=== PATIENT | female | born 1935 | race Caucasian/White ===

== ENCOUNTER 2019-09-19 19:31 | Inpatient (IN) | payer OTHER ==
[2019-09-19] MEDS ORDERED: NA CHLORIDE 0.9% 500 ML ONE (20:30)
[2019-09-19] MEDS ORDERED: ONDANSETRON 4 MG/2 ML VIAL ONE (20:30)
[2019-09-19] MEDS ORDERED: MECLIZINE HCL 12.5 MG TAB ONE (20:30)
[2019-09-19 20:33] LABS: Absolute Lymphocytes (CBC) 1.3 K/uL (0.7-4.9); Basophils % 0.4 % (0-1.3); Hematocrit 38.9 % (36.0-45.0); Lymphocytes % 15.1 % (15.3-44.8); MPV 9.9 fL (7.6-11.3); RBC Red Blood Cell Count 4.55 M/uL (3.86-4.86)
[2019-09-19 20:52] LABS: Albumin 3.9 g/dL (3.4-5.0); Bilirubin Direct 0.1 mg/dL (0-0.2); Bilirubin Total 0.4 mg/dL (0.2-1.0); Potassium 3.8 mmol/L (3.5-5.1); Protein, Total 8.3 g/dL (6.4-8.2)
[2019-09-19 21:12] LABS: Urine Blood TRACE (NEG); Urine Glucose NEGATIVE (NEG); Urine Protein NEGATIVE (NEG); Urine Specific Gravity 1.015 (1.005-1.030)
[2019-09-19 21:30] LABS: Urine Bacteria 20-50 /HPF (<20); Urine RBC <5 /HPF (NONE SEEN)
[2019-09-19 21:31] LABS: Urine Culture Reflex Order NOT NEEDED
[2019-09-19] MEDS ORDERED: METRONIDAZOLE 500mg IVPB 500 MG/100 ML BAG IV ONE (22:44)
[2019-09-19] MEDS ORDERED: CIPROFLOXACIN 400mg IV 400 MG/200 ML BAG IV ONE (22:44)
--- NOTE | 2019-09-19 23:01 | ER ---
Nurse's Notes [facility] Name: Deirdre Castillo Age: 83 yrs Sex: Female : 1935 Arrival Date: 09/19/2019 Time: 19:33 Bed 7 Private MD: Diagnosis: Dehydration;Diverticulitis of large intestine without perforation or abscess without bleeding;Urinary tract infection, site not specified Presentation: 09/19 19:53 Presenting complaint: Patient states: Vomiting, diarrhea that began this afternoon; lp1 States had a fall earlier today, pain to left shoulder; continued nausea. Onset of symptoms was September 19, 2019. Risk Assessment: Do you want to hurt yourself or someone else? Patient reports no desire to harm self or others. Care prior to arrival: None. 19:53 Method Of Arrival: Wheelchair lp1 19:56 Transition of care: patient was not received from another setting of care. Initial lp1 Sepsis Screen: Does the patient meet any 2 criteria? No. Patient's initial sepsis screen is negative. Does the patient have a suspected source of infection? No. Patient's initial sepsis screen is negative. 19:56 Acuity: BRETT 3 lp1 Historical: - Allergies: 19:59 PENICILLINS; lp1 19:59 Macrolide Antibiotics; lp1 19:59 lansaprazole; lp1 - Home Meds: 19:59 aspirin 81 mg Oral chew once daily [Active]; Hydrochlorothiazide Oral [Active]; Fosamax lp1 Oral once wkly [Active]; alendronate 70 mg/75 mL Oral soln 75 mL once wkly [Active]; 20:45 metoprolol tartrate 25 mg Oral tab 0.5 tab 2 times per day [Active]; sertraline 100 mg lp1 Oral tab 1 tab once daily [Active]; levothyroxine 50 mcg tab 1 tab once daily [Active]; amlodipine 5 mg tab 1 tab once daily [Active]; magnesium oxide 250 mg Oral tab twice a day [Active]; telmisartan 80 mg oral tab 1 tab once daily [Active]; mirtazapine 7.5 mg Oral tab once daily [Active]; famotidine 20 mg Oral tab [Active]; melatonin 3 mg Oral tab nightly [Active]; Nasacort Nasal as needed [Active]; - PMHx: 19:59 Depression; Hypertension; Hypothyroidism; Migraines; Osteoporosis; Vertigo; lp1 - PSHx: 19:59 Appendectomy; Hysterectomy; lp1 - Immunization history:: Adult Immunizations up to date. - Social history:: Smoking status: Patient/guardian denies using tobacco. - Ebola Screening: : No symptoms or risks identified at this time. - Family history:: not pertinent. - Hospitalizations: : No recent hospitalization is reported. Screenin:00 Abuse screen: Denies threats or abuse. Denies injuries from another. Nutritional lp1 screening: No deficits noted. Tuberculosis screening: No symptoms or risk factors identified. 20:23 Fall Risk Fall in past 12 months (25 points). IV access (20 points). Total Doll Fall jb4 Scale indicates High Risk Score (45 or more points). Fall prevention measures have been instituted. Side Rails Up X 2 Placed Close to Nursing Station Frequent Obs/Assessments Occuring Family Present and informed to notify staff if the need to leave the bedside As available patient and family educated on Fall Prevention Program and Strategies. Assessment: 20:23 General: Appears in no apparent distress. comfortable, Behavior is calm, cooperative, jb4 appropriate for age. Pain: Denies pain. Neuro: Level of Consciousness is awake, alert, obeys commands, Oriented to person, place, time, situation, Moves all extremities. Full function Speech is normal, Facial droop on right, Pupils are PERRLA. Cardiovascular: Patient's skin is warm and dry. Respiratory: Airway is patent Respiratory effort is even, unlabored, Respiratory pattern is regular, symmetrical. GI: Abdomen is round non-distended, Bowel sounds present X 4 quads. Abd is soft and non tender X 4 quads. : No deficits noted. No signs and/or symptoms were reported regarding the genitourinary system. EENT: No deficits noted. No signs and/or symptoms were reported regarding the EENT system. Derm: Skin is intact, Skin is pink, warm \T\ dry. Musculoskeletal: Circulation, motion, and sensation intact. Range of motion: intact in all extremities. 21:05 Reassessment: Patient appears in no apparent distress at this time. Patient and/or jb4 family updated on plan of care and expected duration. Pain level reassessed. Patient is alert, oriented x 3, equal unlabored respirations, skin warm/dry/pink. PT to ct. 21:51 Reassessment: Patient appears in no apparent distress at this time. Patient and/or jb4 family updated on plan of care and expected duration. Pain level reassessed. Patient is alert, oriented x 3, equal unlabored respirations, skin warm/dry/pink. 23:00 Reassessment: Patient appears in no apparent distress at this time. Patient and/or jb4 family updated on plan of care and expected duration. Pain level reassessed. Patient is alert, oriented x 3, equal unlabored respirations, skin warm/dry/pink. 09/20 00:00 Reassessment: Patient appears in no apparent distress at this time. Patient and/or jb4 family updated on plan of care and expected duration. Pain level reassessed. Patient is alert, oriented x 3, equal unlabored respirations, skin warm/dry/pink. Patient states feeling better. 01:00 Reassessment: Patient appears in no apparent distress at this time. Patient and/or jb4 family updated on plan of care and expected duration. Pain level reassessed. Patient is alert, oriented x 3, equal unlabored respirations, skin warm/dry/pink. 01:30 Reassessment: Report called to ROSETTA [place]. jb4 Vital Signs: 09/19 19:59 BP 159 / 70; Pulse 56; Resp 18; Temp 97.8(O); Pulse Ox 100% on R/A; Weight 63.5 kg; lp1 Pain 0/10; 20:45 BP 154 / 59; Pulse 54; Resp 16; Pulse Ox 100% on R/A; jb4 21:45 BP 151 / 58; Pulse 56; Resp 16; Pulse Ox 100% on R/A; jb4 23:00 BP 158 / 73; Pulse 57; Resp 16; Pulse Ox 95% on R/A; jb4 09/20 00:00 BP 128 / 57; Pulse 54; Resp 16; Pulse Ox 99% on R/A; jb4 01:00 BP 122 / 56; Pulse 53; Resp 16; Temp 98.0(O); Pulse Ox 100% on R/A; jb4 ED Course: 09/19 19:33 Patient arrived in ED. cf2 19:56 Triage completed. lp1 19:56 Arm band placed on. lp1 20:03 Jarvis Dorsey MD is Attending Physician. rn 20:10 Nicolás Dempsey, RN is Primary Nurse. jb4 20:17 Radiology exam delayed due to lab results not completed at this time. (BUN/Creatinine). vm2 20:23 Patient has correct armband on for positive identification. Bed in low position. Call jb4 light in reach. Side rails up X 1. Pulse ox on. NIBP on. 20:23 Initial lab(s) drawn, by me, sent to lab. Inserted saline lock: 20 gauge in left jb4 antecubital area, using aseptic technique. Blood collected. 20:26 Basic Metabolic Panel Sent. jb4 20:26 CBC with Diff Sent. jb4 20:26 Creatinine for Radiology Sent. jb4 20:26 Hepatic Function Sent. jb4 20:26 Lipase Sent. jb4 21:06 CT completed. Patient tolerated procedure well. Patient moved back from CT. nj 21:12 CT Head Brain wo Cont In Process Unspecified. EDMS 21:23 CT Abd/Pelvis - IV Contrast Only In Process Unspecified. EDMS 21:33 XRAY Shoulder LEFT 2 view In Process Unspecified. EDMS 22:58 Jarvis Paulino MD is Hospitalizing Provider. rn 09/20 01:30 No provider procedures requiring assistance completed. Patient admitted, IV remains in jb4 place. Administered Medications: 09/19 20:23 Drug: Zofran 4 mg Route: IVP; Site: left antecubital; jb4 21:03 Follow up: Response: No adverse reaction; Nausea is decreased jb4 20:25 Drug: NS 0.9% 500 ml Route: IV; Rate: bolus; Site: left antecubital; jb4 21:00 Follow up: Response: No adverse reaction; IV Status: Completed infusion; IV Intake: jb4 500ml 21:20 Drug: Meclizine 25 mg Route: PO; jb4 22:00 Follow up: Response: No adverse reaction; Marked relief of symptoms jb4 22:54 Drug: Flagyl 500 mg Volume: 100 ml; Route: IVPB; Rate: 200 ml/hr; Infused Over: 30 jb4 mins; Site: left antecubital; 23:24 Follow up: Response: No adverse reaction; IV Status: Completed infusion; IV Intake: jb4 100ml 22:55 Drug: Cipro 400 mg Volume: 200 ml; Route: IVPB; Infused Over: 60 mins; Site: left jb4 antecubital; 23:55 Follow up: Response: No adverse reaction; IV Status: Completed infusion; IV Intake: jb4 200ml 23:40 Drug: Phenergan 12.5 mg Route: IVP; Site: left antecubital; jb4 09/20 00:10 Follow up: Response: No adverse reaction; Nausea is decreased jb4 Intake: 09/19 21:00 IV: 500ml; Total: 500ml. jb4 23:24 IV: 100ml; Total: 600ml. jb4 23:55 IV: 200ml; Total: 800ml. jb4 Outcome: 22:59 Decision to Hospitalize by Provider. rn 09/20 01:30 Admitted to Tele accompanied by tech, via wheelchair, room 410, with chart, Report jb4 called to ROSETTA [place] Condition: stable Discharge instructions given to patient, Instructed on the need for admit, Demonstrated understanding of instructions. 02:00 Patient left the ED. jb4 Signatures: Dispatcher [employer] EDMS Jarvis Dorsey MD MD rn Pena, Laura, RN RN lp1 Nicolás Dempsey RN RN jb4 [place] 2 Aquiles Handy 2 Corrections: (The following items were deleted from the chart) 09/19 19:56 19:53 Presenting complaint: Patient states: Vomiting, diarrhea that began this lp1 afternoon; lp1 20:46 19:59 Home Meds: metoprolol tartrate 25 mg Oral tab 1 tab once daily; lp1 lp1
--- NOTE | 2019-09-19 23:01 | EDPHYS ---
Physician Documentation [facility] Name: Deirdre Castillo Age: 83 yrs Sex: Female : 1935 Arrival Date: 09/19/2019 Time: 19:33 Bed 7 Private MD: ED Physician Jarvis Dorsey HPI: 09/19 21:03 This 83 yrs old Female presents to ER via Wheelchair with complaints of rn Vomiting/Diarrhea. 21:03 The patient presents to the emergency department with nausea, vomiting, diarrhea. rn Onset: The symptoms/episode began/occurred this morning. Possible causes: unknown. The symptoms are aggravated by nothing. The symptoms are alleviated by nothing. Severity of symptoms: At their worst the symptoms were moderate in the emergency department the symptoms have improved. The patient has experienced a previous episode. The patient has not recently seen a physician. Reports generalized weakness, fatigue, nausea/vomiting/diarrhea since this AM, not able to keep things down, reports dizziness with head movement since yesterday. Has had vertigo before. No focal neurological complaints. . Historical: - Allergies: 19:59 PENICILLINS; lp1 19:59 Macrolide Antibiotics; lp1 19:59 lansaprazole; lp1 - Home Meds: 19:59 aspirin 81 mg Oral chew once daily [Active]; Hydrochlorothiazide Oral [Active]; Fosamax lp1 Oral once wkly [Active]; alendronate 70 mg/75 mL Oral soln 75 mL once wkly [Active]; 20:45 metoprolol tartrate 25 mg Oral tab 0.5 tab 2 times per day [Active]; sertraline 100 mg lp1 Oral tab 1 tab once daily [Active]; levothyroxine 50 mcg tab 1 tab once daily [Active]; amlodipine 5 mg tab 1 tab once daily [Active]; magnesium oxide 250 mg Oral tab twice a day [Active]; telmisartan 80 mg oral tab 1 tab once daily [Active]; mirtazapine 7.5 mg Oral tab once daily [Active]; famotidine 20 mg Oral tab [Active]; melatonin 3 mg Oral tab nightly [Active]; Nasacort Nasal as needed [Active]; - PMHx: 19:59 Depression; Hypertension; Hypothyroidism; Migraines; Osteoporosis; Vertigo; lp1 - PSHx: 19:59 Appendectomy; Hysterectomy; lp1 - Immunization history:: Adult Immunizations up to date. - Social history:: Smoking status: Patient/guardian denies using tobacco. - Ebola Screening: : No symptoms or risks identified at this time. - Family history:: not pertinent. - Hospitalizations: : No recent hospitalization is reported. ROS: 21:04 Constitutional: Negative for fever, chills, and weight loss, Eyes: Negative for injury, rn pain, redness, and discharge, Neck: Negative for injury, pain, and swelling, Cardiovascular: Negative for chest pain, palpitations, and edema, Respiratory: Negative for shortness of breath, cough, wheezing, and pleuritic chest pain, Abdomen/GI: Negative for abdominal pain, + nausea/vomiting/diarrhea MS/Extremity: Negative for injury and deformity, Skin: Negative for injury, rash, and discoloration, Neuro: Negative for headache, and seizure. Exam: 21:04 Constitutional: This is a well developed, well nourished patient who is awake, alert, rn and in no acute distress. Head/Face: Normocephalic, atraumatic. Eyes: Pupils equal round and reactive to light, extra-ocular motions intact. Lids and lashes normal. Conjunctiva and sclera are non-icteric and not injected. Cornea within normal limits. Periorbital areas with no swelling, redness, or edema. ENT: Dry MM Cardiovascular: Bradycardic, regular, no murmur Respiratory: No increased work of breathing, no retractions or nasal flaring. Abdomen/GI: soft, non-tender MS/ Extremity: Pulses equal, no cyanosis. Neurovascular intact. Full, normal range of motion. Equal circumference. Neuro: Awake and alert, GCS 15, oriented to person, place, time, and situation. Cranial nerves II-XII grossly intact. Motor strength 5/5 in all extremities. Sensory grossly intact. Cerebellar exam normal. Vital Signs: 19:59 BP 159 / 70; Pulse 56; Resp 18; Temp 97.8(O); Pulse Ox 100% on R/A; Weight 63.5 kg; lp1 Pain 0/10; 20:45 BP 154 / 59; Pulse 54; Resp 16; Pulse Ox 100% on R/A; jb4 21:45 BP 151 / 58; Pulse 56; Resp 16; Pulse Ox 100% on R/A; jb4 23:00 BP 158 / 73; Pulse 57; Resp 16; Pulse Ox 95% on R/A; jb4 09/20 00:00 BP 128 / 57; Pulse 54; Resp 16; Pulse Ox 99% on R/A; jb4 01:00 BP 122 / 56; Pulse 53; Resp 16; Temp 98.0(O); Pulse Ox 100% on R/A; jb4 MDM: 09/19 20:03 Patient medically screened. rn 22:58 Differential diagnosis: Nonspecific abd pain, appendicitis, diverticulitis, viral rn gastroenteritis, gastroenteritis. Data reviewed: vital signs, nurses notes, lab test result(s), radiologic studies, CT scan, and as a result, I will admit patient. Counseling: I had a detailed discussion with the patient and/or guardian regarding: the historical points, exam findings, and any diagnostic results supporting the discharge/admit diagnosis, lab results, radiology results, the need for further work-up and treatment in the hospital. Response to treatment: the patient's symptoms have mildly improved after treatment, and as a result, I will admit patient. Admission orders: after a detailed discussion of the patient's condition and case, the admit orders are written by me. 09/19 20:15 Order name: Basic Metabolic Panel 09/19 20:15 Order name: CBC with Diff; Complete Time: 20:55 09/19 20:15 Order name: Creatinine for Radiology; Complete Time: 20:55 09/19 20:15 Order name: Hepatic Function; Complete Time: 20:55 09/19 20:15 Order name: Lipase; Complete Time: 20:55 09/19 20:15 Order name: Basic Metabolic Panel; Complete Time: 20:55 [facility] 09/19 21:08 Order name: Urine Culture [facility] 09/19 21:08 Order name: Urine Microscopic Only; Complete Time: 22:20 [facility] 09/19 21:08 Order name: Urine Dipstick--Ancillary (enter results); Complete Time: 22:20 [facility] 09/19 23:54 Order name: CBC with Automated Diff [facility] 09/19 23:54 Order name: CBC with Automated Diff EDMS 09/19 23:54 Order name: Comprehensive Metabolic Panel [facility] 09/19 23:54 Order name: Comprehensive Metabolic Panel [facility] 09/19 23:54 Order name: Magnesium EDMS 09/19 20:15 Order name: IV Saline Lock; Complete Time: 20:23 rn 09/19 20:15 Order name: Labs collected and sent; Complete Time: 20:23 rn 09/19 20:15 Order name: EKG; Complete Time: 20:15 rn 09/19 20:15 Order name: CT Head Brain wo Cont rn 09/19 20:15 Order name: CT Abd/Pelvis - IV Contrast Only rn 09/19 21:04 Order name: XRAY Shoulder LEFT 2 view rn 09/19 23:54 Order name: Clear Liquid EDMS 09/19 23:54 Order name: Magnesium EDMS 09/19 23:54 Order name: Phosphorus EDMS 09/19 23:54 Order name: Phosphorus EDMS 09/19 20:15 Order name: EKG - Nurse/Tech; Complete Time: 20:20 rn Administered Medications: 20:23 Drug: Zofran 4 mg Route: IVP; Site: left antecubital; jb4 21:03 Follow up: Response: No adverse reaction; Nausea is decreased jb4 20:25 Drug: NS 0.9% 500 ml Route: IV; Rate: bolus; Site: left antecubital; jb4 21:00 Follow up: Response: No adverse reaction; IV Status: Completed infusion; IV Intake: jb4 500ml 21:20 Drug: Meclizine 25 mg Route: PO; jb4 22:00 Follow up: Response: No adverse reaction; Marked relief of symptoms jb4 22:54 Drug: Flagyl 500 mg Volume: 100 ml; Route: IVPB; Rate: 200 ml/hr; Infused Over: 30 jb4 mins; Site: left antecubital; 23:24 Follow up: Response: No adverse reaction; IV Status: Completed infusion; IV Intake: jb4 100ml 22:55 Drug: Cipro 400 mg Volume: 200 ml; Route: IVPB; Infused Over: 60 mins; Site: left jb4 antecubital; 23:55 Follow up: Response: No adverse reaction; IV Status: Completed infusion; IV Intake: jb4 200ml 23:40 Drug: Phenergan 12.5 mg Route: IVP; Site: left antecubital; jb4 09/20 00:10 Follow up: Response: No adverse reaction; Nausea is decreased jb4 Disposition: 09/19/19 22:59 Hospitalization ordered by Jarvis Paulino for Inpatient Admission. Preliminary diagnosis are Dehydration, Diverticulitis of large intestine without perforation or abscess without bleeding, Urinary tract infection, site not specified. - Bed requested for Telemetry/MedSurg (Inpatient). - Status is Inpatient Admission. jb4 - Condition is Stable. - Problem is new. - Symptoms have improved. UTI on Admission? Yes Signatures: Dispatcher [employer] EDMS Jarvis Dorsey MD MD rn Pena, Laura, RN RN lp1 Bailey Lemos RN RN Nicolás Dempsey RN RN jb4 Corrections: (The following items were deleted from the chart) 09/19 20:46 19:59 Home Meds: metoprolol tartrate 25 mg Oral tab 1 tab once daily; lp1 lp1 09/20 00:49 09/19 22:59 Hospitalization Ordered by Jarvis Paulino MD for Inpatient Admission. cg Preliminary diagnosis is Dehydration; Diverticulitis of large intestine without perforation or abscess without bleeding; Urinary tract infection, site not specified. Bed requested for Telemetry/MedSurg (Inpatient). Status is Inpatient Admission. Condition is Stable. Problem is new. Symptoms have improved. UTI on Admission? Yes. rn 09/20 02:00 00:49 09/19/2019 22:59 Hospitalization Ordered by Jarvis Paulino MD for Inpatient jb4 Admission. Preliminary diagnosis is Dehydration; Diverticulitis of large intestine without perforation or abscess without bleeding; Urinary tract infection, site not specified. Bed requested for Telemetry/MedSurg (Inpatient). Status is Inpatient Admission. Condition is Stable. Problem is new. Symptoms have improved. UTI on Admission? Yes. cg
[2019-09-19] MEDS ORDERED: PROMETHAZINE 25 MG/ML VIAL ONE (23:29)
[2019-09-19] MEDS ORDERED: ALPRAZOLAM 0.25 MG TABLET PO PRN (23:51)
[2019-09-19] MEDS ORDERED: ACETAMINOPHEN 500 MG TAB PO PRN (23:51)
[2019-09-19] MEDS ORDERED: MAGNESIUM HYDROXIDE 8% 30 ML PO PRN (23:51)
[2019-09-19] MEDS ORDERED: ONDANSETRON 4 MG/2 ML VIAL IV PRN (23:51)
[2019-09-20] MEDS ORDERED: Levofloxacin500mg IV 500 MG/100 ML BAG IV ONE ×2 (01:00→23:45)
[2019-09-20] MEDS ORDERED: POTASSIUM CL SA 10 MEQ TAB PO ONE ×2 (02:13→08:00)
[2019-09-20] MEDS: NA CHLORIDE 0.9% 1,000 ML IV SCH ×2 (02:34→16:05)
[2019-09-20 04:26] LABS: Absolute Lymphocytes (CBC) 1.1 K/uL (0.7-4.9); Basophils % 0.5 % (0-1.3); Hematocrit 37.8 % (36.0-45.0); Lymphocytes % 16.2 % (15.3-44.8); MPV 10.1 fL (7.6-11.3); RBC Red Blood Cell Count 4.38 M/uL (3.86-4.86)
[2019-09-20 04:32] LABS: Albumin 3.3 g/dL (3.4-5.0); Bilirubin Total 0.5 mg/dL (0.2-1.0); Phosphorus 2.4 mg/dL (2.5-4.9); Potassium 3.5 mmol/L (3.5-5.1)
[2019-09-20] MEDS ORDERED: FAMOTIDINE 20 MG TAB PO PRN (04:49)
[2019-09-20] MEDS ORDERED: SIMETHICONE 80 MG TAB PO ONE (04:51)
[2019-09-20] MEDS: LEVOTHYROXINE SOD 0.05 MG TABLET PO SCH (06:01)
--- NOTE | 2019-09-20 06:33 | EKG ---
Test Date: 2019-09-19 Test Time: 20:45:04 Network Account Manager: REECE MEASUREMENT RESULTS: Intervals: Rate: 54 AR: 174 QRSD: 100 QT: 472 QTc: 447 Muse: P: 53 AR: 174 QRS: 0 T: 45 INTERPRETIVE STATEMENTS: Sinus bradycardia Possible Left atrial enlargement Borderline ECG Compared to ECG 06/01/2016 10:04:49 No significant changes Electronically Signed On 09-20-19 06:32:38 STATION ENGINEER by Jon Galvin
[2019-09-20] MEDS: POTASS/SODIUM PHOSPHATE 1 PKT POWD.PACK PO SCH ×3 (07:00→09:00)
--- NOTE | 2019-09-20 07:27 | RAD REPORT ---
EXAM DESCRIPTION: RAD - Shoulder Left 2 View - 09/19/2019 9:32 pm CLINICAL HISTORY: Shoulder pain, left-sided chest pain COMPARISON: October 2010 TECHNIQUE: Internal and external rotation views of the left shoulder were obtained. FINDINGS: There is no fracture or dislocation. AC joint is normal in appearance. Old well-healed mid shaft clavicle fracture noted. Acromial humeral joint space is normal. No suspicious soft tissue jelly cification. Focal density over the chest may be old clavicle free fracture fragment. This is not seen as significant. IMPRESSION: Negative two-view left shoulder examination for acute or significant finding.
--- NOTE | 2019-09-20 07:36 | P.HP ---
Certification for Inpatient Patient admitted to: Inpatient With expected LOS: >2 Midnights Patient will require the following post-hospital care: None Practitioner: I am a practitioner with admitting privileges, knowledge of patient current condition, hospital course, and medical plan of care. Services: Services provided to patient in accordance with Admission requirements found in Title 42 Section 412.3 of the Code of Federal Regulations Patient History Date of Service: 09/19/19 Reason for admission: Abdominal pain History of Present Illness: Patient is a 84-year-old female came to the hospital with abdominal discomfort. Pain was in the lower quadrants of the abdomen. She had fever, shakes, and chills. She has never had a colonoscopy. She used to see Dr. Colindres. She says she never followed up. She has been having this abdominal pain for the last few days so finally came into the ER for further evaluation. In the emergency room, CT scan revealed diverticulitis. Patient be started on IV antibiotics. We will also gently hydrate. Patient does not want have a colonoscopy. She said if there is any other intervention that can be done to further evaluate her colon in the future she is okay with it but she would not be agreeable to a colonoscopy. Allergies Macrolide Antibiotics Allergy (Intermediate, Verified 09/20/19 02:18) Hives/Rash Penicillins Allergy (Verified 09/20/19 02:18) Hives/Rash ketolides Allergy (Intermediate, Uncoded 05/31/16 21:48) Hives/Rash la Allergy (Uncoded 05/31/16 21:50) Hives Home Medications: Magnesium Oxide [Magnesium] 1 tab PO BID 05/31/16 Melatonin [Melatonin*] 1 tab PO BEDTIME 05/31/16 Telmisartan 80 mg PO DAILY 05/31/16 Alendronate Sodium 1 tab PO SEECOM 09/20/19 Amlodipine [Norvasc*] 1 tab PO DAILY 09/20/19 Aspirin [Jarrell Chewable Aspirin] 1 tab PO BEDTIME 09/20/19 Calcium Citrate/Vitamin D3 [Calcium Citrate-Vit D3 Caplet] 1 tab PO BID Cholecalciferol (Vitamin D3) [Vitamin D3] 1 tab PO DAILY 09/20/19 Culturelle Probiotics 1 tab PO DAILY 09/20/19 Famotidine 1 tab PO BEDTIME PRN 09/20/19 Levothyroxine [Synthroid*] 1 tab PO DAILY 09/20/19 Metoprolol Tartrate 0.5 tab PO BID 09/20/19 Mirtazapine 1 tab PO BEDTIME 09/20/19 Nasacort Allergy 24 Hr 1 puff IH BEDTIME PRN 09/20/19 [place]-3S/Dha/Epa/Fish Oil [Fish Oil [place]-3 Softgel] 3 cap PO BID 09/20/19 Sertraline [Zoloft*] 1 tab PO DAILY 09/20/19 Vitamin B Complex [Vitamin B Complex*] 1 tab PO DAILY 09/20/19 - Past Medical/Surgical History Has patient received pneumonia vaccine in the past: Yes Diabetic: No -: HTN -: TIA -: Migraines -: Vertigo -: GERD -: Hysterectomy -: Cataracts ryan sx - Family History Brother Medical History: Cancer Notes: bladder cancer Mother Medical History: Cancer Notes: lymphoma Father Medical History: Hypertension, Stroke - Social History Smoking Status: Never smoker Alcohol use: No CD- Drugs: No Caffeine use: No Place of Residence: Home Review of Systems 10-point ROS is otherwise unremarkable Physical Examination - Vital Signs Temperature: 97.1 F Blood Pressure: 130/63 Pulse: 54 Respirations: 18 Pulse Ox (%): 99 - Physical Exam General: Alert, In no apparent distress, Oriented x3 HEENT: Atraumatic, PERRLA, Mucous membr. moist/pink, EOMI, Sclerae nonicteric Neck: Supple, 2+ carotid pulse no bruit, No LAD, Without JVD or thyroid abnormality Respiratory: Clear to auscultation bilaterally, Normal air movement Cardiovascular: Regular rate/rhythm, Normal S1 S2, No murmurs Gastrointestinal: Normal bowel sounds, Soft and benign, Non-distended, Tenderness (Bilateral lower quadrants) Musculoskeletal: No clubbing, No swelling, No tenderness Integumentary: No rashes Neurological: Normal gait, Normal speech, Normal strength at 5/5 x4 extr, Normal tone, Sensation intact, Cranial nerves 3-12 intact, Normal affect Lymphatics: No axilla or inguinal lymphadenopathy - Studies Laboratory Data (last 24 hrs) 09/19/19 20:23: Creatinine 0.90 09/19/19 20:23: WBC 8.5 D, Hgb 13.7, Hct 38.9, Plt Count 210 09/19/19 20:23: Sodium 122 L, Potassium 3.8, BUN 30 H, Creatinine 0.96, Glucose 109 H, Total Bilirubin 0.4, AST 27, ALT 30, Alkaline Phosphatase 53, Lipase 231 Assessment & Plan - Problems (Diagnosis) (1) Diverticulitis Current Visit: Yes Status: Acute (2) History of hypertension Current Visit: Yes Status: Acute (3) History of TIA (transient ischemic attack) Current Visit: Yes Status: Acute (4) History of migraine Current Visit: Yes Status: Acute (5) History of gastroesophageal reflux (GERD) Current Visit: Yes Status: Acute - Plan 1. Continue with IV hydration 2. Continue with IV antibiotics 3. Continue with pain control 4. NPO 5. GI consultation; outpatient evaluation 6. Serial H&H, and we will monitor CBC, BMP, LFTs and lipase along with electrolytes. 7. GI and DVT prophylaxis Discharge Plan: Home Plan to discharge in: Greater than 2 days - Advance Directives Does patient have a Living Will: No Does patient have a Durable POA for Healthcare: Yes - Code Status/Comfort Care Code Status Assessed: Yes Code Status: Full Code Critical Care: No Time Spent Managing PTS Care (In Minutes): 45
[2019-09-20] MEDS: ENOXAPARIN 40 MG/0.4 ML SQ SCH (07:39)
[2019-09-20] MEDS: SERTRALINE HCL 100 MG TAB PO SCH (07:39)
[2019-09-20] MEDS: VITAMIN B COMPLEX 1 CAP PO SCH (07:40)
[2019-09-20] MEDS: METRONIDAZOLE 500mg IVPB 500 MG/100 ML BAG IV SCH ×2 (07:40→16:05)
[2019-09-20 07:54] VITALS: O2SAT 98
[2019-09-20] MEDS: METOPROLOL TAR 25 MG TAB PO SCH ×2 (08:29→21:43)
[2019-09-20] MEDS: AMLODIPINE 5 MG TAB PO SCH (08:29)
[2019-09-20] MEDS: VALSARTAN 160 MG TAB PO SCH (08:30)
--- NOTE | 2019-09-20 11:35 | RAD REPORT ---
EXAM DESCRIPTION: CT - Head Brain Wo Cont - 09/20/2019 2:34 am CLINICAL HISTORY: Blurred vision. Dizziness. COMPARISON: None. TECHNIQUE: CT scan of the brain without IV contrast. This exam was performed according to our depa rtmental dose-optimization program, which includes automated exposure control, adjustment of the mA a nd/or kV according to patient size and/or use of iterative reconstruction technique. FINDINGS: There are scattered areas of hypoattenuation within the periventricular white matter, whic h likely represent chronic microvascular ischemia. No evidence of acute infarction, intracranial hemo rrhage, extra-axial fluid collection, or midline shift. No air-fluid levels are seen in the paranasal sinuses to suggest acute sinusitis. No depressed skull fracture. IMPRESSION: 1. No acute intracranial findings. 2. Senescent changes with chronic microvascular ischemia. Electronically signed by: Anthony Guillaume MD 09/19/2019 9:43 PM LOAD MANAGER Due to temporary technical issues with the PACS/Fluency reporting system, reports are being signed by the in house radiologist as a courtesy to ensure prompt reporting. The interpreting radiologist is f ully responsible for the content of the report.
--- NOTE | 2019-09-20 11:37 | RAD REPORT ---
EXAM DESCRIPTION: CT - Abdomen Pelvis W Contrast - 09/20/2019 2:35 am CLINICAL HISTORY: Abdominal pain. COMPARISON: 05/31/2016 TECHNIQUE: CT scan of the abdomen and pelvis was performed with IV contrast. This exam was performed according to our departmental dose-optimization program, which includes automated exposure control, adjustment of the mA and/or kV according to patient size and/or use of iterative reconstruction techn ique. FINDINGS: The lung bases are clear. No pleural or pericardial effusions. There is no hiatal hernia. The liver, spleen, pancreas, gallbladder, adrenal glands, and kidneys are unremarkable. No urinary st ones are seen. There has been a prior hysterectomy. Mild wall thickening throughout the sigmoid colon containing diverticula. The appendix is not seen. N o small bowel obstruction. No intraperitoneal free fluid or free air is identified. The aorta is normal caliber. There is a chronic appearing compression deformity of L3. There is no pa thologic body wall hernia. IMPRESSION: Findings suggesting mild sigmoid diverticulitis/colitis. Electronically signed by: Anthony Guillaume MD 09/19/2019 9:54 PM DIAMOND WHEEL EDGER Due to temporary technical issues with the PACS/Fluency reporting system, reports are being signed by the in house radiologist as a courtesy to ensure prompt reporting. The interpreting radiologist is f ully responsible for the content of the report.
--- NOTE | 2019-09-20 14:17 | P.PN ---
Subjective Date of Service: 09/20/19 Primary Care Provider: Dr. Bravo Chief Complaint: Abdominal pain Subjective: Other (Patient feeling better. No significant abdominal pain. Less diarrhea.) Physical Examination - Vital Signs Temperature: 97.7 F Blood Pressure: 126/60 Pulse: 55 Respirations: 16 Pulse Ox (%): 98 - Physical Exam General: Alert, In no apparent distress, Oriented x3, Cooperative HEENT: Atraumatic Neck: Supple Respiratory: Clear to auscultation bilaterally, Normal air movement Cardiovascular: Normal pulses, Regular rate/rhythm Gastrointestinal: Normal bowel sounds, Soft and benign, Non-distended, No ascites, No tenderness, No masses, No rebound, No guarding Musculoskeletal: No erythema, No tenderness, No warmth Integumentary: No erythema, No warmth, No cyanosis Neurological: Normal speech, Normal strength at 5/5 x4 extr, Normal tone, Normal affect - Studies Laboratory Data (last 24 hrs) 09/19/19 20:23: Creatinine 0.90 09/19/19 20:23: WBC 8.5 D, Hgb 13.7, Hct 38.9, Plt Count 210 09/19/19 20:23: Sodium 122 L, Potassium 3.8, BUN 30 H, Creatinine 0.96, Glucose 109 H, Total Bilirubin 0.4, AST 27, ALT 30, Alkaline Phosphatase 53, Lipase 231 Medications List Reviewed: Yes Assessment & Plan Discharge Plan: Home Plan to discharge in: 24 Hours Physician Review Additional Text: Impression: Acute sigmoid diverticulitis Diarrhea likely related to above Hyponatremia with dehydration Hypertension Hypothyroidism Depression with anxiety Plan: Acute sigmoid diverticulitis: Will advance diet as tolerated. Patient without significant nausea, vomiting or abdominal pain. Patient presented with diarrhea. Will need to obtain stool cultures and evaluate for C diff. Continue with Levaquin and Flagyl. Patient will need colonoscopy in 4-6 weeks. GI consulted for further recommendation. Patient does not plan on getting a colonoscopy in the future. Education was addressed in detail. Will ambulate with physical therapy. Anticipate discharge within the next 1-2 days. Diarrhea likely related to above: Will send lab for stool cultures. Will need to rule out C diff. If negative will start lactobacillus. Hyponatremia with dehydration: Continue with IV fluids. Will monitor electrolytes. Recheck lab tomorrow. Electrolyte protocol in place. Hypertension: Home medications restarted. Hypothyroidism: Home medication restarted Depression with anxiety: Home medication restarted Time Spent Managing Pts Care (In Minutes): 55
[2019-09-20] MEDS ORDERED: MELATONIN 3 MG TABLET PO SCH (21:00)
[2019-09-20] MEDS ORDERED: MIRTAZAPINE 15 MG TAB PO SCH (21:00)
[2019-09-20] MEDS ORDERED: Levofloxacin 250mg IV 250 MG/50 ML BAG IV SCH (23:00)
[2019-09-21] MEDS: METRONIDAZOLE 500mg IVPB 500 MG/100 ML BAG IV SCH ×2 (01:21→08:00)
[2019-09-21 04:33] LABS: Absolute Lymphocytes (CBC) 1.6 K/uL (0.7-4.9); Basophils % 0.9 % (0-1.3); Hematocrit 38.2 % (36.0-45.0); Lymphocytes % 16.9 % (15.3-44.8); MPV 10.1 fL (7.6-11.3); RBC Red Blood Cell Count 4.38 M/uL (3.86-4.86)
[2019-09-21 05:16] LABS: Magnesium 2.2 mg/dL (1.8-2.4); Phosphorus 1.9 mg/dL (2.5-4.9); Potassium 4.3 mmol/L (3.5-5.1)
[2019-09-21] MEDS: LEVOTHYROXINE SOD 0.05 MG TABLET PO SCH (05:49)
[2019-09-21] MEDS: NA CHLORIDE 0.9% 1,000 ML IV SCH ×2 (05:49→15:45)
[2019-09-21] MEDS: POTASS/SODIUM PHOSPHATE 1 PKT POWD.PACK PO SCH ×3 (07:00→09:01)
[2019-09-21] MEDS: ENOXAPARIN 40 MG/0.4 ML SQ SCH (08:10)
[2019-09-21] MEDS: METOPROLOL TAR 25 MG TAB PO SCH (08:11)
[2019-09-21] MEDS: AMLODIPINE 5 MG TAB PO SCH (08:13)
[2019-09-21] MEDS: SERTRALINE HCL 100 MG TAB PO SCH (08:14)
[2019-09-21] MEDS: VITAMIN B COMPLEX 1 CAP PO SCH (08:14)
[2019-09-21] MEDS: VALSARTAN 160 MG TAB PO SCH (08:59)
[2019-09-21] MEDS ORDERED: LACTOBACILLUS/ACIDOPHILUS TAB PO SCH (09:00)
--- NOTE | 2019-09-21 11:33 | P.DS ---
Admission Date: 09/19/19 Discharge Date: 09/21/19 Primary Care Provider: Dr. Bravo Disposition: ROUTINE DISCHARGE Discharge Condition: GOOD Reason for Admission: Abdominal pain Consultations: GI-Dr. Colindres Procedures: CT Head: FINDINGS: There are scattered areas of hypoattenuation within the periventricular white matter, which likely represent chronic microvascular ischemia. No evidence of acute infarction, intracranial hemorrhage, extra-axial fluid collection, or midline shift. No air-fluid levels are seen in the paranasal sinuses to suggest acute sinusitis. No depressed skull fracture. IMPRESSION: 1. No acute intracranial findings. 2. Senescent changes with chronic microvascular ischemia. CT Ab/Pelvis: FINDINGS: The lung bases are clear. No pleural or pericardial effusions. There is no hiatal hernia. The liver, spleen, pancreas, gallbladder, adrenal glands, and kidneys are unremarkable. No urinary stones are seen. There has been a prior hysterectomy. Mild wall thickening throughout the sigmoid colon containing diverticula. The appendix is not seen. No small bowel obstruction. No intraperitoneal free fluid or free air is identified. The aorta is normal caliber. There is a chronic appearing compression deformity of L3. There is no pathologic body wall hernia. IMPRESSION: Findings suggesting mild sigmoid diverticulitis/colitis. Medical Problem List: Acute sigmoid diverticulitis Diarrhea likely related to above Hyponatremia with dehydration Hypertension Hypothyroidism Depression with anxiety Brief History of Present Illness: 84-year-old female presented to the emergency room with abdominal pain and diarrhea. CT scan revealed diverticulitis. Patient was admitted for further evaluation and treatment. Hospital Course: Patient presented with abdominal pain secondary to acute sigmoid diverticulitis. Patient was admitted for further evaluation and treatment. Patient responded to antibiotic therapy. At discharge she is without any significant abdominal pain. Urine culture unremarkable. Stool cultures obtained and remained unremarkable. At discharge she will continue with Levaquin 500 mg daily and Flagyl 500 mg 3 times a day for 7 more days. Recommend follow up with her GI specialist. Patient will require colonoscopy in 4-6 weeks to further evaluate and address. Education on diverticulitis provided. Patient had some diarrhea upon admission. This has improved. At discharge will continue with lactobacillus twice daily. Patient may take Imodium over the counter as needed for diarrhea if severe. Patient had hyponatremia likely from dehydration. This improved with IV fluids. Recommend to recheck lab-BMP in 1-2 weeks to monitor stability. Patient with hypertension. At discharge she will continue with her medications- Norvasc 10 mg daily, metoprolol 12.5 mg 1 pill twice daily, and telmisartan 80 mg daily. Recommend to maintain blood pressures less 150/80. Further adjustment can be done by her PCP.. Patient with hypothyroidism. At discharge she will continue with her medication -levothyroxine 50 mcg daily. Patient with depression with anxiety. Patient may continue with her medications -Zoloft 100 mg daily, mirtazapine 7.5 mg at bedtime, and melatonin daily. Patient with history of GERD. She will continue with Pepcid 20 mg daily. Vital Signs/Physical Exam: Temp Pulse Resp BP Pulse Ox 97.6 F 64 18 155/66 H 98 09/21/19 08:00 09/21/19 09:00 09/21/19 08:00 09/21/19 09:00 09/21/19 08:00 General: Alert, In no apparent distress, Oriented x3, Cooperative HEENT: Atraumatic Neck: Supple Respiratory: Clear to auscultation bilaterally, Normal air movement Cardiovascular: Normal pulses, Regular rate/rhythm Gastrointestinal: Normal bowel sounds, Soft and benign, Non-distended, No tenderness, No masses, No rebound, No guarding Neurological: Normal speech, Normal strength at 5/5 x4 extr, Normal tone, Normal affect Laboratory Data at Discharge: WBC 9.2 K/uL (4.3-10.9) D 09/21/19 04:07 Hgb 12.9 g/dL (12.0-15.0) 09/21/19 04:07 Hct 38.2 % (36.0-45.0) 09/21/19 04:07 Plt Count 218 K/uL (152-406) 09/21/19 04:07 Sodium 132 mmol/L (136-145) L 09/21/19 04:07 Potassium 4.3 mmol/L (3.5-5.1) 09/21/19 04:07 BUN 14 mg/dL (7-18) 09/21/19 04:07 Creatinine 0.88 mg/dL (0.55-1.3) 09/21/19 04:07 Glucose 113 mg/dL (74-106) H 09/21/19 04:07 Phosphorus 1.9 mg/dL (2.5-4.9) L 09/21/19 04:07 Magnesium 2.2 mg/dL (1.8-2.4) 09/21/19 04:07 Total Bilirubin 0.5 mg/dL (0.2-1.0) 09/20/19 03:43 AST 23 U/L (15-37) 09/20/19 03:43 ALT 25 U/L (12-78) 09/20/19 03:43 Alkaline Phosphatase 44 U/L (45-117) L 09/20/19 03:43 Lipase 231 U/L (73-393) 09/19/19 20:23 Home Medications: Magnesium Oxide [Magnesium] 1 tab PO BID 05/31/16 Melatonin [Melatonin*] 1 tab PO BEDTIME 05/31/16 Telmisartan 80 mg PO DAILY 05/31/16 Alendronate Sodium 1 tab PO SEECOM 09/20/19 Amlodipine [Norvasc*] 1 tab PO DAILY 09/20/19 Aspirin [Jarrell Chewable Aspirin] 1 tab PO BEDTIME 09/20/19 Calcium Citrate/Vitamin D3 [Calcium Citrate-Vit D3 Caplet] 1 tab PO BID Cholecalciferol (Vitamin D3) [Vitamin D3] 1 tab PO DAILY 09/20/19 Culturelle Probiotics 1 tab PO DAILY 09/20/19 Famotidine 1 tab PO BEDTIME PRN 09/20/19 Levothyroxine [Synthroid*] 1 tab PO DAILY 09/20/19 Metoprolol Tartrate 0.5 tab PO BID 09/20/19 Mirtazapine 1 tab PO BEDTIME 09/20/19 Nasacort Allergy 24 Hr 1 puff IH BEDTIME PRN 09/20/19 [place]-3S/Dha/Epa/Fish Oil [Fish Oil [place]-3 Softgel] 3 cap PO BID 09/20/19 Sertraline [Zoloft*] 1 tab PO DAILY 09/20/19 Vitamin B Complex [Vitamin B Complex*] 1 tab PO DAILY 09/20/19 Levofloxacin [Levaquin] 500 mg PO DAILY #7 tablet 09/21/19 metroNIDAZOLE [Flagyl] 500 mg PO Q8H #24 tablet 09/21/19 New Medications: Levofloxacin [Levaquin] 500 mg PO DAILY #7 tablet metroNIDAZOLE [Flagyl] 500 mg PO Q8H #24 tablet Patient Discharge Instructions: 1. Recommend follow up with her PCP in 1 week to follow up hospitalization. 2. Patient presented with abdominal pain secondary to acute sigmoid diverticulitis. Patient was admitted for further evaluation and treatment. Patient responded to antibiotic therapy. At discharge she is without any significant abdominal pain. Urine culture unremarkable. Stool cultures obtained and remained unremarkable. At discharge she will continue with Levaquin 500 mg daily and Flagyl 500 mg 3 times a day for 7 more days. Recommend follow up with her GI specialist. Patient will require colonoscopy in 4-6 weeks to further evaluate and address. Education on diverticulitis provided. She can further discuss her options with GI. 3. Patient had some diarrhea upon admission. This has improved. At discharge will continue with lactobacillus twice daily. Patient may take Imodium over the counter as needed for diarrhea if severe. 4. Patient had hyponatremia likely from dehydration. This improved with IV fluids. Recommend to recheck lab-BMP in 1-2 weeks to monitor stability. 5. Patient with hypertension. At discharge she will continue with her medications-Norvasc 10 mg daily, metoprolol 12.5 mg 1 pill twice daily, and telmisartan 80 mg daily. Recommend to maintain blood pressures less 150/80. Further adjustment can be done by her PCP.. 6. Patient with hypothyroidism. At discharge she will continue with her medication-levothyroxine 50 mcg daily. 7. Patient with depression with anxiety. Patient may continue with her medications-Zoloft 100 mg daily, mirtazapine 7.5 mg at bedtime, and melatonin daily. 8. Patient with history of GERD. She will continue with Pepcid 20 mg daily. Diet: AHA Activity: Fall precautions Time spent managing pt's care (in minutes): 55
[2019-09-21 12:25] LABS: C.diff Antigen/Toxin Ag neg : Tox neg (NEG : NEG)
[2019-09-21 14:47] VITALS: BMI 27.3
[2019-09-21 16:37] VITALS: BP 157/72; TEMP 98
--- OUTSIDE RECORDS SUMMARY | 2019-09-25 00:12 | XMS REPORT ---
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 Problem H/O TIA (transient ischemic attack) Z86.73 Active and stroke Problem Vaginal itching N89.8 Active Problem Yeast infection of the vagina B37.3 Active Problem Depression with anxiety F41.8 Active Problem Elevated TSH R79.89 Active Problem Hyponatremia E87.1 Active Problem Pneumococcal vaccination Z23 Active administered during current admission Problem 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 Problem Unsteady gait R26.81 Active Problem Osteoporosis M81.0 Active Problem Dysphagia R13.10 Active Problem Adult general medical exam Z00.00 Active Problem Acquired hypothyroidism E03.9 Active Problem Vaginal atrophy N95.2 Active Problem History of melanoma Z85.820 Active Problem Allergic rhinitis, unspecified J30.9 Active seasonality, unspecified trigger Problem CKD (chronic kidney disease) stage N18.3 Active 3, GFR 30-59 ml/min Problem Allergic rhinitis J30.9 Active Problem Hyperlipidemia E78.5 Active Problem Benign essential HTN I10 Active Problem Dizziness R42 Active Problem Elevated glucose R73.09 Active Problem Seasonal allergies J30.2 Active Problem Osteopenia M85.80 Active Problem Abnormal prothrombin time (PT) R79.1 Active Medications No Known Medications Results No Known Results Summary Purpose [employer] Submission
--- OUTSIDE RECORDS SUMMARY | 2019-09-25 00:12 | XMS REPORT ---
[...] Abnormal prothrombin time (PT) R79.1 Active Medications Medication Code System Code Instructions Start End Date Status Dosage Date Famotidine [facility] [id number] 20 MG Orally Aug 07, Active 1 tablet at Once a day 2019 bedtime as needed Results No Known Results Summary Purpose [employer] Submission
== END 2019-09-21 16:48 | disposition home or self-care (01) | DRG 392 ==
LOC: ER 19:31 → ERHOLD 23:56 → 4TH 09-20 01:30
PROVIDERS: ADMIT Hospitalist; ATTEND Hospitalist
DX: K57.32 Diverticulitis of large intestine without perforation or abscess without bleeding (principal); E87.1 Hypo-osmolality and hyponatremia; E86.0 Dehydration; I10 Essential (primary) hypertension; F41.8 Other specified anxiety disorders; R19.7 Diarrhea, unspecified; E03.9 Hypothyroidism, unspecified; K21.9 Gastro-esophageal reflux disease without esophagitis; Z88.0 Allergy status to penicillin; Z86.73 Personal history of transient ischemic attack (TIA), and cerebral infarction without residual deficits
CPT/HCPCS: 36415; 70450; 74177; 80048; 80053; 80076; 81003; 81015; 83690; 83735; 84100; 85025; 87045; 87046; 87077; 87086; 87088; 87177; 87186; 87209; 87324; 87449; 93005; 96361; 96365; 96368; 96375; 97116; 97161; 97530; 99285; J0744; J1650; J2405; J2550; J7030; J7040; J8597; Q9967

== ENCOUNTER 2019-09-22 14:18 | Emergency (ER) | payer OTHER ==
[2019-09-22] MEDS ORDERED: NA CHLORIDE 0.9% 1,000 ML ONE (14:52)
[2019-09-22 15:02] LABS: Absolute Lymphocytes (CBC) 1.4 K/uL (0.7-4.9); Basophils % 0.5 % (0-1.3); Hematocrit 36.4 % (36.0-45.0); Lymphocytes % 14.9 % (15.3-44.8); MPV 10.1 fL (7.6-11.3); RBC Red Blood Cell Count 4.21 M/uL (3.86-4.86)
[2019-09-22 15:04] LABS: Protime INR 1.09
--- NOTE | 2019-09-22 15:13 | RAD REPORT ---
EXAM DESCRIPTION: RAD - Chest Single View - 09/22/2019 2:38 pm CLINICAL HISTORY: COUGH Chest pain. COMPARISON: Chest Pa And Lat (2 Views) dated 09/14/2016; CHEST SINGLE VIEW dated 12/30/2015; CHEST SI NGLE VIEW dated 09/10/2015; CHEST SINGLE VIEW dated 09/09/2015 FINDINGS: Portable technique limits examination quality. Emphysematous changes are present throughout the lungs. The heart is normal in size. Old left clavicu lar fracture. IMPRESSION: COPD.
[2019-09-22 15:22] LABS: ALT/SGPT 26 U/L (12-78); AST/SGOT 31 U/L (15-37); Albumin 3.3 g/dL (3.4-5.0); Alkaline Phosphatase 45 U/L (45-117); BUN Blood Urea Nitrogen 5 mg/dL (7-18); Bicarbonate 23 mmol/L (21-32); Bilirubin Direct 0.2 mg/dL (0-0.2); Bilirubin Total 0.7 mg/dL (0.2-1.0); Glucose Level 109 mg/dL (74-106); Lipase 139 U/L (73-393); NT PRO-BNP 1567 pg/mL (<450); Potassium 3.5 mmol/L (3.5-5.1); Protein, Total 7.3 g/dL (6.4-8.2); Sodium Level 127 mmol/L (136-145); Troponin (Emerg Dept Use Only) < 0.02 ng/mL (0.0-0.045)
[2019-09-22] MEDS ORDERED: ONDANSETRON 4 MG/2 ML VIAL ONE (15:23)
--- NOTE | 2019-09-22 16:04 | RAD REPORT ---
EXAM DESCRIPTION: RAD - Abdomen W Erect - 09/22/2019 3:59 pm CLINICAL HISTORY: ABD PAIN Pain COMPARISON: No comparisons FINDINGS: The bowel gas pattern is non-obstructive. No evidence of free air or pneumatosis. No suspi cious calcifications. No significant bony findings. IMPRESSION: Negative examination.
--- NOTE | 2019-09-22 16:18 | EDPHYS ---
Physician Documentation [facility] Name: Deirdre Castillo Age: 84 yrs Sex: Female : 1935 Arrival Date: 09/22/2019 Time: 14:21 Bed 23 Private MD: ED Physician Wesley Joya HPI: 09/22 15:14 This 84 yrs old Female presents to ER via EMS with complaints of Abdominal jamie Pain. 15:14 The patient presents to the emergency department with nausea. Onset: The jamie symptoms/episode began/occurred 2 day(s) ago. Possible causes: unknown. The symptoms are aggravated by food , The symptoms are alleviated by nothing. Associated signs and symptoms: Pertinent positives: nausea. Severity of symptoms: At their worst the symptoms were moderate in the emergency department the symptoms are unchanged. The patient has not experienced similar symptoms in the past. Historical: - Allergies: 14:23 lansaprazole; la1 14:23 Macrolide Antibiotics; la1 14:23 PENICILLINS; la1 - Home Meds: 14:48 alendronate 70 mg/75 mL Oral soln 75 mL once wkly [Active]; aspirin 81 mg Oral chew la1 once daily [Active]; duloxetine 30 mg Oral cpDR [Active]; Fosamax Oral once wkly [Active]; Hydrochlorothiazide Oral [Active]; Imitrex Oral [Active]; Imitrex 25 mg Oral tab 1 tab as needed [Active]; magnesium oxide 250 mg Oral tab twice a day [Active]; meclizine 25 mg Oral tab [Active]; melatonin 3 mg Oral tab [Active]; metoprolol tartrate 25 mg Oral tab 1 tab once daily [Active]; Miralax 17 gram Oral pwpk [Active]; Nasacort Nasal as needed [Active]; pantoprazole 40 mg Oral TbEC 1 tab once daily [Active]; Prilosec 10 mg Oral cpDR [Active]; ranitidine HCl 150 mg Oral cap 1 cap once daily [Active]; sertraline 100 mg Oral tab 1 tab once daily [Active]; Synthroid 25 mcg Oral tab 1 tab once daily [Active]; telmasartan [Active]; - PMHx: 14:23 Depression; Hypertension; Hypothyroidism; Migraines; Osteoporosis; Vertigo; la1 - Immunization history:: Adult Immunizations up to date. - Social history:: Smoking status: Patient/guardian denies using tobacco. - Ebola Screening: : No symptoms or risks identified at this time. ROS: 15:15 Constitutional: Negative for fever, chills, and weight loss, Eyes: Negative for injury, jamie pain, redness, and discharge, ENT: Negative for injury, pain, and discharge, Neck: Negative for injury, pain, and swelling, Cardiovascular: Negative for chest pain, palpitations, and edema, Respiratory: Negative for shortness of breath, cough, wheezing, and pleuritic chest pain, Back: Negative for injury and pain, : Negative for injury, bleeding, discharge, and swelling, MS/Extremity: Negative for injury and deformity, Skin: Negative for injury, rash, and discoloration, Neuro: Negative for headache, weakness, numbness, tingling, and seizure, Psych: Negative for depression, anxiety, suicide ideation, homicidal ideation, and hallucinations, Allergy/Immunology: Negative for hives, rash, and allergies, Endocrine: Negative for neck swelling, polydipsia, polyuria, polyphagia, and marked weight changes, Hematologic/Lymphatic: Negative for swollen nodes, abnormal bleeding, and unusual bruising. 15:15 Abdomen/GI: Positive for nausea, anorexia. Exam: 15:15 Constitutional: This is a well developed, well nourished patient who is awake, alert, jamie and in no acute distress. Head/Face: Normocephalic, atraumatic. Eyes: Pupils equal round and reactive to light, extra-ocular motions intact. Lids and lashes normal. Conjunctiva and sclera are non-icteric and not injected. Cornea within normal limits. Periorbital areas with no swelling, redness, or edema. ENT: Nares patent. No nasal discharge, no septal abnormalities noted. Tympanic membranes are normal and external auditory canals are clear. Oropharynx with no redness, swelling, or masses, exudates, or evidence of obstruction, uvula midline. Mucous membranes moist. Neck: Trachea midline, no thyromegaly or masses palpated, and no cervical lymphadenopathy. Supple, full range of motion without nuchal rigidity, or vertebral point tenderness. No Meningismus. Chest/axilla: Normal chest wall appearance and motion. Nontender with no deformity. No lesions are appreciated. Cardiovascular: Regular rate and rhythm with a normal S1 and S2. No gallops, murmurs, or rubs. Normal PMI, no JVD. No pulse deficits. Respiratory: Lungs have equal breath sounds bilaterally, clear to auscultation and percussion. No rales, rhonchi or wheezes noted. No increased work of breathing, no retractions or nasal flaring. Abdomen/GI: Soft, non-tender, with normal bowel sounds. No distension or tympany. No guarding or rebound. No evidence of tenderness throughout. Back: No spinal tenderness. No costovertebral tenderness. Full range of motion. Skin: Warm, dry with normal turgor. Normal color with no rashes, no lesions, and no evidence of cellulitis. MS/ Extremity: Pulses equal, no cyanosis. Neurovascular intact. Full, normal range of motion. Neuro: Awake and alert, GCS 15, oriented to person, place, time, and situation. Cranial nerves II-XII grossly intact. Motor strength 5/5 in all extremities. Sensory grossly intact. Cerebellar exam normal. Normal gait. Psych: Awake, alert, with orientation to person, place and time. Behavior, mood, and affect are within normal limits. Vital Signs: 14:23 BP 179 / 69; Pulse 69; Resp 18; Pulse Ox 98% on R/A; la1 15:00 BP 156 / 70; Pulse 60; Resp 16; Pulse Ox 99% on R/A; tr5 16:00 BP 176 / 66; Pulse 58; Resp 15; Pulse Ox 100% on R/A; tr5 MDM: 14:21 Patient medically screened. [facility] 16:17 Data reviewed: vital signs, nurses notes, lab test result(s), EKG, radiologic studies, jamie plain films. 09/22 14:24 Order name: Basic Metabolic Panel [facility] 09/22 14:24 Order name: CBC with Diff [facility] 09/22 14:24 Order name: LFT's; Complete Time: 16:16 [facility] 09/22 14:24 Order name: Magnesium; Complete Time: 16:16 [facility] 09/22 14:24 Order name: NT PRO-BNP; Complete Time: 16:16 [facility] 09/22 14:24 Order name: PT-INR; Complete Time: 15:14 [facility] 09/22 14:24 Order name: Troponin (emerg Dept Use Only); Complete Time: 16:16 [facility] 09/22 14:24 Order name: XRAY Chest (1 view); Complete Time: 16:16 [facility] 09/22 14:24 Order name: Lipase; Complete Time: 16:16 [facility] 09/22 14:24 Order name: Urine Culture [facility] 09/22 14:24 Order name: Basic Metabolic Panel; Complete Time: 16:16 EDMS 09/22 14:24 Order name: CBC with Automated Diff; Complete Time: 15:14 EDMS 09/22 15:14 Order name: Abdomen with Erect XRAY; Complete Time: 16:16 [facility] 09/22 17:00 Order name: Urine Dipstick--Ancillary (enter results) 09/22 14:24 Order name: EKG; Complete Time: 14:25 [facility] 09/22 14:24 Order name: Cardiac monitoring; Complete Time: 14:46 [facility] 09/22 14:24 Order name: EKG - Nurse/Tech; Complete Time: 14:46 [facility] 09/22 14:24 Order name: IV Saline Lock; Complete Time: 14:46 [facility] 09/22 14:24 Order name: Labs collected and sent; Complete Time: 14:46 [facility] 09/22 14:24 Order name: O2 Per Protocol; Complete Time: 14:46 [facility] 09/22 14:24 Order name: O2 Sat Monitoring; Complete Time: 14:46 [facility] 09/22 14:24 Order name: Urine Dipstick-Ancillary (obtain specimen); Complete Time: 16:50 [facility] 09/22 16:51 Order name: PO challenge; Complete Time: 17:12 [facility] Administered Medications: 14:53 Drug: NS 0.9% 1000 ml Route: IV; Rate: 125 ml/hr; Site: right antecubital; la1 16:47 Follow up: IV Status: Infusion continued tr5 15:32 Drug: Zofran 4 mg Route: IVP; Site: right antecubital; tr5 16:36 Follow up: Response: Nausea is decreased tr5 16:46 Drug: NS 0.9% 500 ml Route: IV; Rate: bolus; Site: left antecubital; tr5 Disposition: 09/22/19 16:17 Discharged to Home. Impression: Diverticular disease of intestine, Diverticulitis of large intestine without perforation or abscess without bleeding, Nausea, Hypo-osmolality and hyponatremia. - Condition is Stable. - Discharge Instructions: Diverticulitis, Hyponatremia, Nausea and Vomiting, Adult, Nausea, Adult, Diverticulitis, Qpom-hp-[id number], Nausea and Vomiting, Adult, Eiam-iy-Khjq, Hyponatremia, Plmo-yi-Tggv, Nausea, Adult, Onpv-xx-Hvnd. - Prescriptions for Zofran 4 mg Oral Tablet - take 1 tablet by ORAL route every 12 hours As needed; 20 tablet. - Medication Reconciliation Form, Thank You Letter, Antibiotic Education, Prescription Opioid Use form. - Follow up: Private Physician; When: 5 - 6 days; Reason: Recheck today's complaints, Continuance of care, Re-evaluation by your physician. - Problem is new. - Symptoms have improved. Signatures: Dispatcher [employer] EDMS Wesley Joya MD MD cha Attema, Lee RN RN la1 Julián Boyd RN RN tr5 Corrections: (The following items were deleted from the chart) 16:18 16:17 09/22/2019 16:17 Discharged to Home. Impression: Diverticular disease of jamie intestine; Diverticulitis of large intestine without perforation or abscess without bleeding; Nausea. Condition is Stable. Discharge Instructions: Diverticulitis, Nausea and Vomiting, Adult, Nausea, Adult, Diverticulitis, Wemd-ad-Udui, Nausea and Vomiting, Adult, Rkjk-km-Vlav, Nausea, Adult, Fcur-ip-Hclo. Prescriptions for Zofran 4 mg Oral Tablet - take 1 tablet by ORAL route every 12 hours As needed; 20 tablet. and Forms are Medication Reconciliation Form, Thank You Letter, Antibiotic Education, Prescription Opioid Use. Follow up: Private Physician; When: 5 - 6 days; Reason: Recheck today's complaints, Continuance of care, Re-evaluation by your physician. Problem is new. Symptoms have improved. [facility] 18:35 16:18 09/22/2019 16:17 Discharged to Home. Impression: Diverticular disease of tr5 intestine; Diverticulitis of large intestine without perforation or abscess without bleeding; Nausea; Hypo-osmolality and hyponatremia. Condition is Stable. Discharge Instructions: Diverticulitis, Nausea and Vomiting, Adult, Nausea, Adult, Diverticulitis, Djow-ab-Svfw, Nausea and Vomiting, Adult, Omtp-it-Yguq, Nausea, Adult, Lmbf-xb-Wgxg. Prescriptions for Zofran 4 mg Oral Tablet - take 1 tablet by ORAL route every 12 hours As needed; 20 tablet. and Forms are Medication Reconciliation Form, Thank You Letter, Antibiotic Education, Prescription Opioid Use. Follow up: Private Physician; When: 5 - 6 days; Reason: Recheck today's complaints, Continuance of care, Re-evaluation by your physician. Problem is new. Symptoms have improved. jamie
--- NOTE | 2019-09-22 16:18 | ER ---
Nurse's Notes [facility] Name: Deirdre Castillo Age: 84 yrs Sex: Female : 1935 Arrival Date: 09/22/2019 Time: 14:21 Bed 23 Private MD: Diagnosis: Diverticular disease of intestine;Diverticulitis of large intestine without perforation or abscess without bleeding;Nausea;Hypo-osmolality and hyponatremia Presentation: 09/22 14:21 Presenting complaint: Patient states: I was discharged last night with diverticulitis la1 and I do not have any appetite, PT on PO levaquin at home. Transition of care: patient was not received from another setting of care. Onset of symptoms was September 22, 2019. Risk Assessment: Do you want to hurt yourself or someone else? Patient reports no desire to harm self or others. Initial Sepsis Screen: Does the patient meet any 2 criteria? No. Patient's initial sepsis screen is negative. Does the patient have a suspected source of infection? No. Patient's initial sepsis screen is negative. Care prior to arrival: None. 14:21 Method Of Arrival: EMS: [facility] la1 14:21 Acuity: BRETT 3 la1 Historical: - Allergies: 14:23 lansaprazole; la1 14:23 Macrolide Antibiotics; la1 14:23 PENICILLINS; la1 - Home Meds: 14:48 alendronate 70 mg/75 mL Oral soln 75 mL once wkly [Active]; aspirin 81 mg Oral chew la1 once daily [Active]; duloxetine 30 mg Oral cpDR [Active]; Fosamax Oral once wkly [Active]; Hydrochlorothiazide Oral [Active]; Imitrex Oral [Active]; Imitrex 25 mg Oral tab 1 tab as needed [Active]; magnesium oxide 250 mg Oral tab twice a day [Active]; meclizine 25 mg Oral tab [Active]; melatonin 3 mg Oral tab [Active]; metoprolol tartrate 25 mg Oral tab 1 tab once daily [Active]; Miralax 17 gram Oral pwpk [Active]; Nasacort Nasal as needed [Active]; pantoprazole 40 mg Oral TbEC 1 tab once daily [Active]; Prilosec 10 mg Oral cpDR [Active]; ranitidine HCl 150 mg Oral cap 1 cap once daily [Active]; sertraline 100 mg Oral tab 1 tab once daily [Active]; Synthroid 25 mcg Oral tab 1 tab once daily [Active]; telmasartan [Active]; - PMHx: 14:23 Depression; Hypertension; Hypothyroidism; Migraines; Osteoporosis; Vertigo; la1 - Immunization history:: Adult Immunizations up to date. - Social history:: Smoking status: Patient/guardian denies using tobacco. - Ebola Screening: : No symptoms or risks identified at this time. Screenin:50 Abuse screen: Denies threats or abuse. Nutritional screening: No deficits noted. la1 Tuberculosis screening: No symptoms or risk factors identified. Fall Risk None identified. Assessment: 14:49 General: Appears in no apparent distress. Behavior is calm, cooperative. Pain: Denies la1 pain. Neuro: Level of Consciousness is awake, alert, obeys commands. Cardiovascular: Patient's skin is warm and dry. Respiratory: Airway is patent Respiratory effort is even, unlabored, Respiratory pattern is regular, symmetrical. GI: Abdomen is obese, Bowel sounds present in right upper quadrant, left upper quadrant, right lower quadrant and left lower quadrant Abd is soft X 4 quads Reports nausea, decreased appetite. : No signs and/or symptoms were reported regarding the genitourinary system. Musculoskeletal: Circulation, motion, and sensation intact. 16:00 Reassessment: Patient appears in no apparent distress at this time. Patient and/or tr5 family updated on plan of care and expected duration. Pain level reassessed. Patient is alert, oriented x 3, equal unlabored respirations, skin warm/dry/pink. Vital Signs: 14:23 BP 179 / 69; Pulse 69; Resp 18; Pulse Ox 98% on R/A; la1 15:00 BP 156 / 70; Pulse 60; Resp 16; Pulse Ox 99% on R/A; tr5 16:00 BP 176 / 66; Pulse 58; Resp 15; Pulse Ox 100% on R/A; tr5 ED Course: 14:21 Patient arrived in ED. la1 14:21 Wesley Joya MD is Attending Physician. [facility] 14:21 Arm band placed on right wrist. la1 14:22 Triage completed. la1 14:24 Nehemias Cardona RN is Primary Nurse. la1 14:34 EKG done, by nanotechnology engineering technician. reviewed by Wesley Joya MD. sm3 14:39 XRAY Chest (1 view) In Process Unspecified. EDMS 14:40 Inserted saline lock: 20 gauge in right antecubital area, using aseptic technique. jp3 Blood collected. Patient maintains SpO2 saturation greater than 95% on room air. 14:40 Initial lab(s) drawn, by me, sent to lab. X-ray(s) taken. jp3 14:45 Bed in low position. Call light in reach. Side rails up X 1. Side rails up X2. Warm jp3 blanket given. Verbal reassurance given. ekg monitor on. Pulse ox on. NIBP on. 14:46 Basic Metabolic Panel Sent. jp3 14:46 CBC with Diff Sent. jp3 14:46 PT-INR Sent. jp3 15:58 Abdomen with Erect XRAY In Process Unspecified. EDMS 16:55 Lights dimmed. Cleaned of incontinence. jp3 16:55 Urine collected: straight cath specimen, clear, conrad colored, Amount Returned: 400mL. jp3 16:55 Straight cath inserted, using sterile technique, Specimen obtained. 15 Fr Returned jp3 clear yellow urine. Patient tolerated well. 16:57 Urine Culture Sent. jp3 17:12 Diet: Patient given juice. Tolerated well. jp3 17:12 Urine Dipstick--Ancillary (enter results) Sent. jp3 18:00 No provider procedures requiring assistance completed. IV discontinued. tr5 Administered Medications: 14:53 Drug: NS 0.9% 1000 ml Route: IV; Rate: 125 ml/hr; Site: right antecubital; la1 16:47 Follow up: IV Status: Infusion continued tr5 15:32 Drug: Zofran 4 mg Route: IVP; Site: right antecubital; tr5 16:36 Follow up: Response: Nausea is decreased tr5 16:46 Drug: NS 0.9% 500 ml Route: IV; Rate: bolus; Site: left antecubital; tr5 Outcome: 16:17 Discharge ordered by . jamie 18:00 Discharged to home via wheelchair. tr5 18:00 Condition: stable 18:00 Discharge instructions given to patient, Instructed on discharge instructions, follow up and referral plans. medication usage, Demonstrated understanding of instructions, follow-up care, medications, Prescriptions given X 1. 18:35 Patient left the ED. tr5 Signatures: Dispatcher [employer] Wesley Hanson MD MD cha Attema, Lee, RN RN saji1 Carina Anderson 3 Kevin Anderson jp3 Julián Boyd RN RN tr5
[2019-09-22] MEDS ORDERED: NA CHLORIDE 0.9% 500 ML ONE (16:46)
[2019-09-22 18:12] LABS: Urine Blood TRACE (NEG); Urine Glucose NEGATIVE (NEG); Urine Protein NEGATIVE (NEG); Urine pH 6.5 (5.0-7.0)
[2019-09-22 21:27] VITALS: BP 176/66; O2SAT 100
--- NOTE | 2019-09-24 12:49 | EKG ---
Test Date: 2019-09-22 Test Time: 14:28:44 Rework Operator: FABI MEASUREMENT RESULTS: Intervals: Rate: 64 MS: 182 QRSD: 92 QT: 424 QTc: 437 [place]: P: 48 MS: 182 QRS: -4 T: 43 INTERPRETIVE STATEMENTS: Sinus rhythm with frequent premature ventricular complexes Otherwise normal ECG Compared to ECG 09/19/2019 20:45:04 Ventricular premature complex(es) now present Sinus bradycardia no longer present Electronically Signed On 09-24-19 12:45:37 DEVELOPMENT ENG by David Jeffrey
--- OUTSIDE RECORDS SUMMARY | 2019-09-25 05:31 | XMS REPORT ---
[...] Start End Date Status Dosage Date Famotidine [facility] [id number] 20 MG Orally Aug 07, Active 1 tablet at Once a day 2019 bedtime as needed Results No Known Results Summary Purpose eClinicalWorks Submission
== END 2019-09-22 18:35 | disposition home or self-care (01) ==
LOC: ER 14:18
DX: K57.32 Diverticulitis of large intestine without perforation or abscess without bleeding (principal); K57.90 Diverticulosis of intestine, part unspecified, without perforation or abscess without bleeding; E87.1 Hypo-osmolality and hyponatremia; I10 Essential (primary) hypertension; E03.9 Hypothyroidism, unspecified; F32.9 Major depressive disorder, single episode, unspecified; Z79.82 Long term (current) use of aspirin; Z88.0 Allergy status to penicillin; Z88.1 Allergy status to other antibiotic agents; Z88.8 Allergy status to other drugs, medicaments and biological substances
CPT/HCPCS: 36415; 51702; 71045; 74019; 80048; 80076; 81003; 83690; 83735; 83880; 84484; 85025; 85610; 87086; 87088; 93005; 96361; 96374; 99285; J2405; J7030; J7040

== ENCOUNTER 2019-09-25 00:48 | Inpatient (IN) | payer OTHER ==
[2019-09-25] MEDS ORDERED: ONDANSETRON 4 MG/2 ML VIAL ONE (01:21)
[2019-09-25 01:33] LABS: Absolute Lymphocytes (CBC) 0.9 K/uL (0.7-4.9); Basophils % 0.2 % (0-1.3); Hematocrit 34.1 % (36.0-45.0); Lymphocytes % 7.5 % (15.3-44.8); MPV 9.7 fL (7.6-11.3); RBC Red Blood Cell Count 4.03 M/uL (3.86-4.86)
[2019-09-25 01:44] LABS: Urine Blood 1+ (NEG); Urine Glucose NEGATIVE (NEG); Urine Protein 1+ (NEG)
[2019-09-25 01:45] LABS: ALT/SGPT 53 U/L (12-78); AST/SGOT 82 U/L (15-37); Albumin 2.6 g/dL (3.4-5.0); Alkaline Phosphatase 37 U/L (45-117); BUN Blood Urea Nitrogen 6 mg/dL (7-18); Bicarbonate 26 mmol/L (21-32); Bilirubin Direct 0.2 mg/dL (0-0.2); Bilirubin Total 0.5 mg/dL (0.2-1.0); Glucose Level 121 mg/dL (74-106); Lipase 86 U/L (73-393); Potassium 3.1 mmol/L (3.5-5.1); Protein, Total 6.1 g/dL (6.4-8.2)
[2019-09-25 01:46] LABS: Sodium Level 116 mmol/L (136-145)
--- NOTE | 2019-09-25 02:09 | ER ---
Nurse's Notes [facility] Name: Deirdre Castillo Age: 84 yrs Sex: Female : 1935 Arrival Date: 09/25/2019 Time: 00:55 Bed 6 Private MD: Diagnosis: Dehydration;Hypo-osmolality and hyponatremia Presentation: 09/25 00:55 Presenting complaint: EMS states: Nausea, vomiting, diarrhea x 2 days; unable to lp1 tolerate taking home meds; complaint of generalized weakness; Denies any blood in stool, recent discharge from hospital. Transition of care: patient was not received from another setting of care. Onset of symptoms was September 25, 2019. Risk Assessment: Do you want to hurt yourself or someone else? Patient reports no desire to harm self or others. Initial Sepsis Screen: Does the patient meet any 2 criteria? No. Patient's initial sepsis screen is negative. Does the patient have a suspected source of infection? No. Patient's initial sepsis screen is negative. Care prior to arrival: Medication(s) given: Normal saline infusion, 250 ml zofran 4 mg, IV initiated. 20 GA, in the right hand, Glucose check: 140. 00:55 Method Of Arrival: EMS: [facility] lp1 00:55 Acuity: BRETT 3 lp1 Historical: - Allergies: 01:03 PENICILLINS; lp1 01:03 lansaprazole; lp1 01:03 Macrolide Antibiotics; lp1 - Home Meds: 01:03 alendronate 70 mg/75 mL Oral soln 75 mL once wkly [Active]; sertraline 100 mg Oral tab lp1 1 tab once daily [Active]; levothyroxine 50 mcg tab 1 tab once daily [Active]; amlodipine 5 mg tab 1 tab once daily [Active]; metoprolol tartrate 25 mg Oral tab 0.5 tab 2 times per day [Active]; magnesium oxide 250 mg Oral tab twice a day [Active]; vitamin B complex oral tab daily [Active]; Vitamin D3 5,000 unit oral tab daily [Active]; calcium citrate-vitamin D3 oral oral 2 tab daily [Active]; telmisartan 80 mg oral tab 1 tab once daily [Active]; mirtazapine 7.5 mg Oral tab 1 tab once daily [Active]; famotidine 20 mg Oral tab 1 tab once daily [Active]; melatonin 3 mg Oral tab 1 tab nightly [Active]; aspirin 325 mg oral TbEC 1 tab once daily [Active]; - PMHx: 01:03 Depression; Hypertension; Hypothyroidism; Migraines; Osteoporosis; Vertigo; lp1 Diverticulitis; GERD; Atrial Fib; - Immunization history:: Adult Immunizations up to date. - Social history:: Smoking status: Patient/guardian denies using tobacco. - Ebola Screening: : No symptoms or risks identified at this time. Screenin:32 Abuse screen: Denies threats or abuse. Denies injuries from another. Nutritional lp1 screening: No deficits noted. Tuberculosis screening: No symptoms or risk factors identified. Fall Risk Total Doll Fall Scale indicates High Risk Score (45 or more points). Fall prevention measures have been instituted. Side Rails Up X 2 As available patient and family educated on Fall Prevention Program and Strategies. Assessment: 01:00 General: Appears in no apparent distress. Behavior is calm, cooperative, appropriate lp1 for age. Pain: Denies pain. Neuro: Level of Consciousness is awake, alert, obeys commands, Oriented to person, place, situation, Reports weakness in generalized. Cardiovascular: Patient's skin is warm and dry. Respiratory: Respiratory effort is even, unlabored, Breath sounds are clear bilaterally. GI: Abdomen is non-distended, Bowel sounds present X 4 quads. Reports diarrhea, nausea, vomiting. : No signs and/or symptoms were reported regarding the genitourinary system. EENT: No signs and/or symptoms were reported regarding the EENT system. Derm: Skin is intact, Skin is dry, Skin is normal. Musculoskeletal: No signs and/or symptoms reported regarding the musculoskeletal system. 02:15 Reassessment: Patient appears in no apparent distress at this time. Patient and/or lp1 family updated on plan of care and expected duration. Pain level reassessed. Patient resting, eyes closed, respirations unlabored. Reassessment: Patient easy to arouse, aware of pending admission. Vital Signs: 00:57 BP 167 / 78; Pulse 72; Resp 18; Temp 98.1(O); Pulse Ox 100% on R/A; Weight 63.5 kg; lp1 Height 5 ft. 1 in. (154.94 cm); Pain 0/10; 02:00 BP 159 / 72; Pulse 73; Resp 14; Pulse Ox 100% on R/A; lp1 02:30 BP 158 / 66; Pulse 66; Resp 16; Pulse Ox 99% on R/A; lp1 02:53 BP 166 / 75; Pulse 75; Resp 19; Temp 98.3(O); Pulse Ox 98% on R/A; Pain 0/10; lp1 00:57 Body Mass Index 26.45 (63.50 kg, 154.94 cm) lp1 ED Course: 00:55 Patient arrived in ED. lp1 00:57 Triage completed. lp1 00:57 Arm band placed on right wrist. lp1 00:58 Ricardo Dubon PA is PHCP. jr8 00:58 Lc Doran MD is Attending Physician. jr8 01:00 Maintain EMS IV. Dressing intact. Good blood return noted. Site clean \T\ dry. Gauge \T\ rr 5 site: g20 right hand. 01:18 Inserted saline lock: 20 gauge in right antecubital area, using aseptic technique. rr5 Blood collected. 01:31 Bianca Coe, RN is Primary Nurse. lp1 01:33 Patient has correct armband on for positive identification. Placed in gown. Bed in low lp1 position. Call light in reach. Pulse ox on. NIBP on. 01:46 Notified ED physician of a critical lab result(s). Sodium 116, Chloride 82. lp1 02:08 Jarvis Paulino MD is Hospitalizing Provider. jr8 02:35 No provider procedures requiring assistance completed. Patient admitted, IV remains in lp1 place. Administered Medications: 01:25 Drug: NS 0.9% 1000 ml Route: IV; Rate: 1000 ml; Site: right antecubital; rr5 02:33 Follow up: IV Status: Completed infusion; IV Intake: 1000ml lp1 01:25 Drug: Zofran 4 mg Route: IVP; Site: right antecubital; rr5 02:33 Follow up: Response: Marked relief of symptoms lp1 02:20 Drug: NS 0.9% 1000 ml Route: IV; Rate: 100 ml/hr; Site: right antecubital; rr5 02:33 Follow up: IV Status: Infusion continued upon admission lp1 02:20 Drug: Potassium Chloride 20 mEq Route: PO; rr5 03:00 Follow up: Response: No adverse reaction lp1 Intake: 02:33 IV: 1000ml; Total: 1000ml. lp1 Outcome: 02:08 Decision to Hospitalize by Provider. mona 02:35 Condition: stable lp1 02:35 Instructed on the need for admit. 03:00 Admitted to Med/surg via stretcher, room 203, with chart, Report called to ROSETTA Pepe lp1 03:17 Patient left the ED. lp1 Signatures: Bianca Coe RN RN lp1 Ricardo Dubon PA PA jr8 Americo Campos RN RN rr5
--- NOTE | 2019-09-25 02:10 | EDPHYS ---
Physician Documentation [facility] Name: Deirdre Castillo Age: 84 yrs Sex: Female : 1935 Arrival Date: 09/25/2019 Time: 00:55 Bed 6 Private MD: ED Physician Lc Doran HPI: 09/25 02:04 This 84 yrs old Female presents to ER via EMS with complaints of jr8 Nausea/Vomiting/Diarrhea. 02:04 The patient presents to the emergency department with nausea, vomiting. Onset: The jr8 symptoms/episode began/occurred gradually, 5 day(s) ago. Possible causes: unknown. The symptoms are aggravated by nothing. The symptoms are alleviated by nothing. Associated signs and symptoms: Pertinent positives: general weakness. Severity of symptoms: At their worst the symptoms were moderate in the emergency department the symptoms are unchanged. It is unknown whether or not the patient has had similar symptoms in the past. The patient has been recently been admitted at [facility]. Patient recently admitted and d/c'd after having diverticulitis. Patient stated that the diarrhea has stopped but still continues to have nausea and vomiting. Called EMS today because she is very weak . Historical: - Allergies: 01:03 PENICILLINS; lp1 01:03 lansaprazole; lp1 01:03 Macrolide Antibiotics; lp1 - Home Meds: 01:03 alendronate 70 mg/75 mL Oral soln 75 mL once wkly [Active]; sertraline 100 mg Oral tab lp1 1 tab once daily [Active]; levothyroxine 50 mcg tab 1 tab once daily [Active]; amlodipine 5 mg tab 1 tab once daily [Active]; metoprolol tartrate 25 mg Oral tab 0.5 tab 2 times per day [Active]; magnesium oxide 250 mg Oral tab twice a day [Active]; vitamin B complex oral tab daily [Active]; Vitamin D3 5,000 unit oral tab daily [Active]; calcium citrate-vitamin D3 oral oral 2 tab daily [Active]; telmisartan 80 mg oral tab 1 tab once daily [Active]; mirtazapine 7.5 mg Oral tab 1 tab once daily [Active]; famotidine 20 mg Oral tab 1 tab once daily [Active]; melatonin 3 mg Oral tab 1 tab nightly [Active]; aspirin 325 mg oral TbEC 1 tab once daily [Active]; - PMHx: 01:03 Depression; Hypertension; Hypothyroidism; Migraines; Osteoporosis; Vertigo; lp1 Diverticulitis; GERD; Atrial Fib; - Immunization history:: Adult Immunizations up to date. - Social history:: Smoking status: Patient/guardian denies using tobacco. - Ebola Screening: : No symptoms or risks identified at this time. ROS: 02:04 Eyes: Negative for injury, pain, redness, and discharge, ENT: Negative for injury, jr8 pain, and discharge, Neck: Negative for injury, pain, and swelling, Cardiovascular: Negative for chest pain, palpitations, and edema, Respiratory: Negative for shortness of breath, cough, wheezing, and pleuritic chest pain, Back: Negative for injury and pain, MS/Extremity: Negative for injury and deformity, Skin: Negative for injury, rash, and discoloration. 02:04 Abdomen/GI: Positive for nausea and vomiting, Negative for abdominal pain, diarrhea, abdominal cramps, abdominal distension, anorexia, dysphagia, hematemesis, black/tarry stool, rectal pain, rectal bleeding, bowel incontinence, flatulence. 02:04 Neuro: Positive for weakness. Exam: 02:04 Eyes: Pupils equal round and reactive to light, extra-ocular motions intact. Lids and jr8 lashes normal. Conjunctiva and sclera are non-icteric and not injected. Cornea within normal limits. Periorbital areas with no swelling, redness, or edema. ENT: Nares patent. No nasal discharge, no septal abnormalities noted. Tympanic membranes are normal and external auditory canals are clear. Oropharynx with no redness, swelling, or masses, exudates, or evidence of obstruction, uvula midline. Mucous membranes moist. Neck: Trachea midline, no thyromegaly or masses palpated, and no cervical lymphadenopathy. Supple, full range of motion without nuchal rigidity, or vertebral point tenderness. No Meningismus. Cardiovascular: Regular rate and rhythm with a normal S1 and S2. No gallops, murmurs, or rubs. Normal PMI, no JVD. No pulse deficits. Respiratory: Lungs have equal breath sounds bilaterally, clear to auscultation and percussion. No rales, rhonchi or wheezes noted. No increased work of breathing, no retractions or nasal flaring. Abdomen/GI: Soft, non-tender, with normal bowel sounds. No distension or tympany. No guarding or rebound. No evidence of tenderness throughout. Back: No spinal tenderness. No costovertebral tenderness. Full range of motion. Skin: Warm, dry with normal turgor. Normal color with no rashes, no lesions, and no evidence of cellulitis. MS/ Extremity: Pulses equal, no cyanosis. Neurovascular intact. Full, normal range of motion. Neuro: Awake and alert, GCS 15, oriented to person, place, time, and situation. Cranial nerves II-XII grossly intact. Motor strength 4/5 in all extremities. Sensory grossly intact. Vital Signs: 00:57 BP 167 / 78; Pulse 72; Resp 18; Temp 98.1(O); Pulse Ox 100% on R/A; Weight 63.5 kg; lp1 Height 5 ft. 1 in. (154.94 cm); Pain 0/10; 02:00 BP 159 / 72; Pulse 73; Resp 14; Pulse Ox 100% on R/A; lp1 02:30 BP 158 / 66; Pulse 66; Resp 16; Pulse Ox 99% on R/A; lp1 02:53 BP 166 / 75; Pulse 75; Resp 19; Temp 98.3(O); Pulse Ox 98% on R/A; Pain 0/10; lp1 00:57 Body Mass Index 26.45 (63.50 kg, 154.94 cm) lp1 MDM: 01:01 Patient medically screened. 8 02:07 Data reviewed: vital signs, nurses notes, old medical records, lab test result(s), EKG. jr8 Data interpreted: Pulse oximetry: on room air is 100 %. Interpretation: normal. Counseling: I had a detailed discussion with the patient and/or guardian regarding: the historical points, exam findings, and any diagnostic results supporting the discharge/admit diagnosis, lab results, the need for further work-up and treatment in the hospital. Physician consultation: Jarvis Paulino MD was called at 02:07, was contacted at 02:07, regarding admission, to the telemetry unit. consult, and will see patient. 09/25 01:09 Order name: Basic Metabolic Panel; Complete Time: 8 09/25 01: Order name: CBC with Diff; Complete Time: 09/25 01:09 Order name: Creatinine for Radiology; Complete Time: 09/25 01:09 Order name: Hepatic Function; Complete Time: 09/25 01:09 Order name: Lipase; Complete Time: 09/25 01:19 Order name: Urine Dipstick--Ancillary (enter results); Complete Time: : mw2 09/25 02:46 Order name: CBC with Automated Diff EDMS 09/25 02:47 Order name: CBC with Automated Diff EDMS 09/25 02:47 Order name: Comprehensive Metabolic Panel EDIL 09/25 02:47 Order name: Comprehensive Metabolic Panel [facility] 09/25 01:09 Order name: IV Saline Lock; Complete Time: [facility] 09/25 01:09 Order name: Labs collected and sent; Complete Time: [facility] 09/25 02:07 Order name: EKG - Nurse/Tech; Complete Time: 02:33 [facility] 09/25 02:46 Order name: CONS Pharmacy Consult [facility] 09/25 02:46 Order name: Regular EDMS Administered Medications: 01:25 Drug: NS 0.9% 1000 ml Route: IV; Rate: 1000 ml; Site: right antecubital; rr5 02:33 Follow up: IV Status: Completed infusion; IV Intake: 1000ml lp1 01:25 Drug: Zofran 4 mg Route: IVP; Site: right antecubital; rr5 02:33 Follow up: Response: Marked relief of symptoms lp1 02:20 Drug: NS 0.9% 1000 ml Route: IV; Rate: 100 ml/hr; Site: right antecubital; rr5 02:33 Follow up: IV Status: Infusion continued upon admission lp1 02:20 Drug: Potassium Chloride 20 mEq Route: PO; rr5 03:00 Follow up: Response: No adverse reaction lp1 Disposition: 04:17 Co-signature as Attending Physician, Lc Doran MD I agree with the assessment and 4 plan of care. Disposition: 09/25/19 02:08 Hospitalization ordered by Jarvis Paulino for Inpatient Admission. Preliminary diagnosis are Dehydration, Hypo-osmolality and hyponatremia. - Bed requested for Telemetry/MedSurg (Inpatient). - Status is Inpatient Admission. lp1 - Condition is Fair. - Problem is new. - Symptoms are unchanged. UTI on Admission? No Signatures: Dispatcher [employer] EDIL Sissy Rayo RN RN mw Bianca Coe RN RN lp1 Ricardo Dubon PA PA jr8 Lc Doran MD MD tw4 Americo Campos, RN RN rr5 Corrections: (The following items were deleted from the chart) 02:04 01:55 Abdomen Pelvis W Con+CT.RAD.BRZ ordered. [facility] EDIL 02:50 02:08 Hospitalization Ordered by Jarvis Paulino MD for Inpatient Admission. Preliminary diagnosis is Dehydration; Hypo-osmolality and hyponatremia. Bed requested for Telemetry/MedSurg (Inpatient). Status is Inpatient Admission. Condition is Fair. Problem is new. Symptoms are unchanged. UTI on Admission? No. jr8 03:17 02:50 09/25/2019 02:08 Hospitalization Ordered by Jarvis Paulino MD for Inpatient lp1 Admission. Preliminary diagnosis is Dehydration; Hypo-osmolality and hyponatremia. Bed requested for Telemetry/MedSurg (Inpatient). Status is Inpatient Admission. Condition is Fair. Problem is new. Symptoms are unchanged. UTI on Admission? No. mw
[2019-09-25] MEDS ORDERED: NA CHLORIDE 0.9% 1,000 ML ONE (02:13)
[2019-09-25] MEDS ORDERED: POTASSIUM CL SA 10 MEQ TAB PO ONE ×3 (02:13→19:43)
[2019-09-25] MEDS ORDERED: ACETAMINOPHEN 500 MG TAB PO PRN (02:43)
[2019-09-25] MEDS ORDERED: ONDANSETRON 4 MG/2 ML VIAL IV PRN (02:43)
[2019-09-25] MEDS ORDERED: MORPHINE 2 MG/ML SYR IV PRN (02:43)
[2019-09-25] MEDS ORDERED: NA CHLORIDE 0.9% 1,000 ML IV SCH (03:00)
[2019-09-25 03:51] VITALS: BMI 29.0
[2019-09-25 06:57] LABS: Basophils % 0.3 % (0-1.3); Hematocrit 33.9 % (36.0-45.0); Lymphocytes % 8.3 % (15.3-44.8); MPV 9.5 fL (7.6-11.3); RBC Red Blood Cell Count 4.01 M/uL (3.86-4.86)
--- OUTSIDE RECORDS SUMMARY | 2019-09-25 07:26 | XMS REPORT ---
[...] Start End Date Status Dosage Date Famotidine [facility] [id number] 20 MG Orally Aug 07, Active 1 tablet at Once a day 2019 bedtime as needed Results No Known Results Summary Purpose eClinicalWorks Submission
--- NOTE | 2019-09-25 07:47 | P.HP ---
Certification for Inpatient Patient admitted to: Inpatient With expected LOS: >2 Midnights Patient will require the following post-hospital care: None Practitioner: I am a practitioner with admitting privileges, knowledge of patient current condition, hospital course, and medical plan of care. Services: Services provided to patient in accordance with Admission requirements found in Title 42 Section 412.3 of the Code of Federal Regulations Patient History Date of Service: 09/25/19 Reason for admission: Lethargic/altered mental status/nausea/moderate hyponatremia History of Present Illness: Patient is an 84-year-old female who I recently admitted with abdominal pain, nausea, vomiting, and diarrhea. This was found have been secondary to diverticulitis. She was given IV antibiotics in the hospital and discharged a day later with oral antibiotics. Her diarrhea has resolved. However she has not been eating well and has had significant nausea and vomiting. She just does not feel like herself and is very lethargic and not really giving me much of a history because she feels like she needs her rest. In the emergency room, her workup revealed hyponatremia with a sodium of 116. She has had chronic low sodiums but never this low. 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 Will put her on some saline and recheck her sodium level. Will check a FeNa. 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 Allergies Macrolide Antibiotics Allergy (Intermediate, Verified 09/25/19 03:29) Hives/Rash Penicillins Allergy (Verified 09/25/19 03:29) Hives/Rash ketolides Allergy (Intermediate, Uncoded 05/31/16 21:48) Hives/Rash la Allergy (Uncoded 05/31/16 21:50) Hives Home Medications: Magnesium Oxide [Magnesium] 1 tab PO BID 05/31/16 Melatonin [Melatonin*] 1 tab PO BEDTIME 05/31/16 Telmisartan 80 mg PO DAILY 05/31/16 Alendronate Sodium 1 tab PO SEECOM 09/20/19 Amlodipine [Norvasc*] 1 tab PO DAILY 09/20/19 Aspirin [Jarrell Chewable Aspirin] 1 tab PO BEDTIME 09/20/19 Calcium Citrate/Vitamin D3 [Calcium Citrate-Vit D3 Caplet] 1 tab PO BID Cholecalciferol (Vitamin D3) [Vitamin D3] 1 tab PO DAILY 09/20/19 Culturelle Probiotics 1 tab PO DAILY 09/20/19 Famotidine 1 tab PO BEDTIME PRN 09/20/19 Levothyroxine [Synthroid*] 1 tab PO DAILY 09/20/19 Metoprolol Tartrate 0.5 tab PO BID 09/20/19 Mirtazapine 1 tab PO BEDTIME 09/20/19 Nasacort Allergy 24 Hr 1 puff IH BEDTIME PRN 09/20/19 [place]-3S/Dha/Epa/Fish Oil [Fish Oil [place]-3 Softgel] 3 cap PO BID 09/20/19 Sertraline [Zoloft*] 1 tab PO DAILY 09/20/19 Vitamin B Complex [Vitamin B Complex*] 1 tab PO DAILY 09/20/19 - Past Medical/Surgical History Has patient received pneumonia vaccine in the past: Yes Diabetic: No -: HTN -: TIA -: Migraines -: Vertigo -: GERD -: Hysterectomy -: Cataracts ryan sx - Family History Brother Medical History: Cancer Notes: bladder cancer Mother Medical History: Cancer Notes: lymphoma Father Medical History: Hypertension, Stroke - Social History Smoking Status: Never smoker Alcohol use: No CD- Drugs: No Caffeine use: Yes Place of Residence: Home Review of Systems 10-point ROS is otherwise unremarkable Physical Examination - Vital Signs Temperature: 97.2 F Blood Pressure: 168/72 Pulse: 69 Respirations: 18 Pulse Ox (%): 97 - Physical Exam General: Alert, In no apparent distress, Oriented x3 HEENT: Atraumatic, PERRLA, Mucous membr. moist/pink, EOMI, Sclerae nonicteric Neck: Supple, 2+ carotid pulse no bruit, No LAD, Without JVD or thyroid abnormality Respiratory: Clear to auscultation bilaterally, Normal air movement Cardiovascular: Regular rate/rhythm, Normal S1 S2, No murmurs Gastrointestinal: Normal bowel sounds, No tenderness Musculoskeletal: No tenderness Integumentary: No rashes Neurological: Normal gait, Normal speech, Normal strength at 5/5 x4 extr, Normal tone, Normal affect Lymphatics: No axilla or inguinal lymphadenopathy - Studies Laboratory Data (last 24 hrs) 09/25/19 01:15: Creatinine 0.62 09/25/19 01:15: WBC 12.3 H D, Hgb 12.1, Hct 34.1 L, Plt Count 202 09/25/19 01:15: Sodium 116 L*, Potassium 3.1 L, BUN 6 L, Creatinine 0.60, Glucose 121 H, Total Bilirubin 0.5, AST 82 H, ALT 53, Alkaline Phosphatase 37 L , Lipase 86 Assessment & Plan - Problems (Diagnosis) (1) Hyponatremia Onset Date: 06/01/16 Current Visit: No Status: Acute (2) Decreased appetite Current Visit: Yes Status: Acute (3) On SSRI therapy Current Visit: Yes Status: Acute (4) SIADH (syndrome of inappropriate ADH production) Current Visit: Yes Status: Acute (5) History of hypertension Current Visit: No Status: Acute (6) History of migraine Current Visit: No Status: Acute (7) Nausea & vomiting Onset Date: 06/01/16 Current Visit: No Status: Acute - Plan Plan: 1. Gentle hydration with normal saline 2. FeNa calculation; urine osmolarity and osmolalities 3. Consider changing antidepressants; she is already on Remeron so we could switch her Zoloft to just Remeron therapy 4. Strict blood pressure blood sugar control 5. GI and DVT prophylaxis Discharge Plan: Home Plan to discharge in: Greater than 2 days - Advance Directives Does patient have a Living Will: Yes Does patient have a Durable POA for Healthcare: Yes - Code Status/Comfort Care Code Status Assessed: Yes Code Status: Full Code Critical Care: No Time Spent Managing PTS Care (In Minutes): 45
[2019-09-25 07:52] LABS: BUN Blood Urea Nitrogen 5 mg/dL (7-18); Bicarbonate 27 mmol/L (21-32); Glucose Level 110 mg/dL (74-106); Potassium 3.1 mmol/L (3.5-5.1)
[2019-09-25 07:55] LABS: Sodium Level 119 mmol/L (136-145)
[2019-09-25] MEDS: NA CHLORIDE 0.9% 1,000 ML IV SCH ×2 (08:18→15:01)
[2019-09-25] MEDS: ONDANSETRON 4 MG/2 ML VIAL IV PRN ×3 (09:04→21:03)
[2019-09-25 13:29] LABS: Potassium 3.5 mmol/L (3.5-5.1)
--- NOTE | 2019-09-25 15:55 | EKG ---
Test Date: 2019-09-25 Test Time: 02:27:29 Oil Agent: GAGE MEASUREMENT RESULTS: Intervals: Rate: 70 NH: 172 QRSD: 80 QT: 444 QTc: 479 [place]: P: 42 NH: 172 QRS: -9 T: 30 INTERPRETIVE STATEMENTS: Normal sinus rhythm Nonspecific ST abnormality Abnormal ECG Compared to ECG 09/22/2019 14:28:44 ST (T wave) deviation now present Ventricular premature complex(es) no longer present Electronically Signed On 09-25-19 15:54:22 IT SERVICE CONTINUITY SUPERVISOR by Jon Galvin
[2019-09-25] MEDS ORDERED: MIRTAZAPINE 15 MG TAB PO PRN (16:53)
[2019-09-25] MEDS: METOPROLOL TAR 25 MG TAB PO SCH (18:00)
[2019-09-25] MEDS: metroNIDAZOLE 500 MG TABLET PO SCH (18:00)
[2019-09-25] MEDS: AMLODIPINE 5 MG TAB PO SCH (18:00)
[2019-09-25] MEDS: levoFLOXacin 500 MG TAB PO SCH (18:01)
--- NOTE | 2019-09-25 18:13 | P.PN ---
Subjective Date of Service: 09/25/19 Primary Care Provider: Dr. Bravo Chief Complaint: Lethargic/altered mental status/nausea/moderate hyponatremia Subjective: Other (Still with increased fatigue.) Physical Examination - Vital Signs Temperature: 97.4 F Blood Pressure: 174/74 Pulse: 76 Respirations: 18 Pulse Ox (%): 98 - Physical Exam General: Alert, In no apparent distress, Cooperative HEENT: Atraumatic Neck: Supple Respiratory: Clear to auscultation bilaterally, Normal air movement Cardiovascular: Normal pulses, Regular rate/rhythm Gastrointestinal: Normal bowel sounds, Soft and benign, Non-distended Musculoskeletal: No erythema, No tenderness, No warmth Integumentary: No erythema, No warmth, No cyanosis Neurological: Normal speech, Normal strength at 5/5 x4 extr, Normal tone, Normal affect - Studies Laboratory Data (last 24 hrs) 09/25/19 01:15: Creatinine 0.62 09/25/19 01:15: WBC 12.3 H D, Hgb 12.1, Hct 34.1 L, Plt Count 202 09/25/19 01:15: Sodium 116 L*, Potassium 3.1 L, BUN 6 L, Creatinine 0.60, Glucose 121 H, Total Bilirubin 0.5, AST 82 H, ALT 53, Alkaline Phosphatase 37 L , Lipase 86 Medications List Reviewed: Yes Assessment & Plan Discharge Plan: Home Plan to discharge in: Greater than 2 days Physician Review Additional Text: Impression: Acute on chronic Hyponatremia etiology unknown suspect dehydration Recent acute sigmoid diverticulitis Hypertension Hypothyroidism Depression with anxiety Plan: Acute on chronic Hyponatremia etiology unknown suspect dehydration: Patient initially on IV fluid hydration. Nephrology consulted. Nephrology has stop IV fluids. Continue to monitor closely off IV fluids. Encourage oral intake. Will provide medication for nausea. Await further recommendations from nephrology. I will turn the service over to Dr. Paul tomorrow. I will go over the plan of care with her. Anticipate discharge in the next 2-3 days pending clinical improvement Recent acute sigmoid diverticulitis: Restart medication. Hypertension: Restart Norvasc and beta-michoacano. Will hold Arb inhibitor. Hypothyroidism: Restart home medication. Depression with anxiety: Restart home medication. Time Spent Managing Pts Care (In Minutes): 55
[2019-09-25] MEDS ORDERED: POTASSIUM 25 MEQ EFFERV TAB PO ONE (20:12)
[2019-09-25 20:40] LABS: Potassium 2.9 mmol/L (3.5-5.1)
[2019-09-25] MEDS ORDERED: HOME MED 1 EA UNK (Magnesium Oxide [Magnesium] 1 TAB) PO SCH (21:00)
[2019-09-25] MEDS: CALCIUM CITRATE PO SCH (21:00)
[2019-09-25] MEDS: VITAMIN D3 PO SCH (21:00)
[2019-09-25] MEDS: [UNRECOGNIZED DRUG - REMARK] IH SCH (21:00)
[2019-09-25] MEDS: MELATONIN 3 MG TABLET PO SCH (21:04)
[2019-09-25] MEDS: ASPIRIN 81 MG CHEWABLE TABLET PO SCH (21:04)
[2019-09-25] MEDS: FAMOTIDINE 20 MG TAB PO PRN (21:04)
[2019-09-26] MEDS: metroNIDAZOLE 500 MG TABLET PO SCH ×3 (01:15→16:18)
--- NOTE | 2019-09-26 02:23 | CON ---
Date of Consultation: 09/25/2019 Chief Complaint: Hyponatremia, severe, [id number], associated with hypokalemia and history of hypomagnesemia. History Of Present Illness: Patient was found to have severe hyponatremia. Sodium level was 116. S he was started on normal saline infusion and she received potassium supplementation for hypokalemia. Patient on previous occasion was hospitalized in this hospital and was found to have hyponatremia, w hich gradually improved, although when she was admitted yesterday, sodium level was found to be 116 a nd decline over the last 48 hours. Patient is an 84-year-old female who recently was admitted for ab dominal pain, nausea, vomiting, and diarrhea. She was found to have diverticulitis, was started on a ntibiotics and discharged to home. Diarrhea has resolved, although she has not been eating well. Sh e had nausea and vomiting. Decreased p.o. intake. She was eating crackers and did not have adequate protein intake. In the emergency room, workup revealed hyponatremia with sodium 116. 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 Review of Systems: Constitutional: Patient denies fever, chills. Eyes: Denies vision changes. Ears, Nose, Mouth, and Throat: Denies sore throat or earache. Respiratory: Denies PND, orthopnea. Cardiovascular: Denies chest pain, palpitation. GI: Denies melena, hematemesis. She has some nausea. Denies abdominal pain. : Denies dysuria, hematuria. Musculoskeletal: Denies muscle aches or joint swelling. All other systems reviewed and all are negative. Past Medical History: Migraine headaches; history of hyponatremia, chronic; hypertension; SIADH; KAYODE D; vertigo; hysterectomy; cataract surgery. Family History: Brother had a bladder cancer. Mother, lymphomata breast, hypertension, and stroke. Social History: Denies tobacco, alcohol, or illicit drugs. Family History: As stated above. Physical Examination: General: The patient is awake, alert. Vital Signs: Blood pressure 168/72, heart rate 69, temperature 97.2, SpO2 97%. Eyes: Anicteric sclerae. EOMI. Ears, Nose, Mouth, and Throat: Oral mucosa moist. No pallor. Neck: Supple. No bruits. Lungs: Clear to auscultation bilaterally. Heart: S1, S2. Abdomen: Soft. Benign. Extremities: No edema. Laboratory Data: Sodium 116, potassium 3.1, BUN 6, creatinine 0.6, glucose 121, total bilirubin 0.5, AST 82, ALT 53, lipase 82. Impression And Plan: 1.Hyponatremia, hypo-osmolar, complicated by hypovolemia and associated with hypokalemia and hypomag nesemia. Plan is to continue normal saline and advance protein intake. Continue potassium replaceme nt. Avoid nonsteroidal anti-inflammatory medication. 2.History of hypertension. Continue blood pressure medication. 3.Decreased appetite. Increase protein intake. Monitor magnesium, phosphorous level, and advance r eplacement as needed. MOHAMUD/MAXIMILIANO Voice ID: [id number] Report ID: [id number]
[2019-09-26 05:40] LABS: Absolute Lymphocytes (CBC) 1.2 K/uL (0.7-4.9); Basophils % 0.3 % (0-1.3); Hematocrit 34.5 % (36.0-45.0); MPV 9.5 fL (7.6-11.3); RBC Red Blood Cell Count 4.08 M/uL (3.86-4.86)
[2019-09-26 06:02] LABS: Albumin 2.4 g/dL (3.4-5.0); Bilirubin Total 0.4 mg/dL (0.2-1.0); Potassium 3.7 mmol/L (3.5-5.1); Protein, Total 5.8 g/dL (6.4-8.2)
[2019-09-26] MEDS: METOPROLOL TAR 25 MG TAB PO SCH ×2 (07:40→17:11)
[2019-09-26] MEDS: LEVOTHYROXINE SOD 0.05 MG TABLET PO SCH (07:40)
[2019-09-26] MEDS: AMLODIPINE 5 MG TAB PO SCH (08:37)
[2019-09-26] MEDS: levoFLOXacin 500 MG TAB PO SCH (08:37)
[2019-09-26] MEDS: [UNRECOGNIZED DRUG - OTHER] PO SCH (08:37)
[2019-09-26] MEDS: VITAMIN D3 PO SCH ×2 (08:37→21:00)
[2019-09-26] MEDS: CALCIUM CITRATE PO SCH ×2 (08:37→21:00)
[2019-09-26] MEDS: SERTRALINE HCL 100 MG TAB PO SCH (08:37)
[2019-09-26] MEDS ORDERED: POTASSIUM CL SA 10 MEQ TAB PO ONE (09:36)
--- NOTE | 2019-09-26 13:43 | PN ---
Date of Progress Note: 09/26/2019 Subjective: Patient was admitted with hyponatremia secondary to depletion superimposed with backgrou nd history of SIADH. Patient was started on IV fluid. Sodium gradually rising appropriately. Physical Examination: Vital Signs: Blood pressure 150/70, pulse of 67, afebrile. Patient had good urine output of 2200. Chest: Clear to auscultation. Heart: S1, S2. Systolic murmur. Abdomen: Soft, nontender. Extremity: No edema. Laboratory Data: WBC 7.4, H and H 12.2/34.5, platelets of 218. Sodium 125, potassium 3.7, bicarb 27 , BUN 6, creatinine 0.6, calcium of 8. Cortisol is still pending. Current Medications: Levaquin 500 daily, metronidazole 500 t.i.d., amlodipine 5 mg, metoprolol 12.5 b.i.d., mirtazapine, sertraline, Pepcid, levothyroxine. 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 Supported with elevation on urine so dium and the response to the IV fluid. a.I agree with holding the IV fluid for today. b.We will start the patient on salt tablet 1 g b.i.d. and we will continue to monitor the patient. I am going to go ahead and send for urine sodium, potassium, osmolality, cortisol, and TSH given the background of hypothyroidism. We will continue to monitor the patient tomorrow. Sodium normalized o r above 130, patient will be cleared from the renal standpoint for discharge planning. 2.Hypertension. Agree with starting on beta-m[place]ano and amlodipine. We will follow up. 3.Hypokalemia. We will supplement. 4.I am going to go ahead and check for magnesium level. 5.Diverticulitis. Continue current antibiotic, dose appropriate. KENNY/MAXIMILIANO Voice ID: [id number] Report ID: [id number]
--- NOTE | 2019-09-26 14:08 | P.PN ---
Subjective Date of Service: 09/26/19 Primary Care Provider: Dr. Bravo Chief Complaint: Lethargic/altered mental status/nausea/moderate hyponatremia Patient seen and examined at bedside with RN. Chart reviewed. Case discussed with consultants. Patient at this time complains of having some generalized weakness. States that she feels much better than before however. Denies having any shortness of breath chest pain or any other associated symptoms at this time. Review of Systems 10-point ROS is otherwise unremarkable Physical Examination - Vital Signs Temperature: 97.1 F Blood Pressure: 139/63 Pulse: 65 Respirations: 20 Pulse Ox (%): 98 - Physical Exam General: Alert, In no apparent distress HEENT: Atraumatic, PERRLA, EOMI Neck: Supple, JVD not distended Respiratory: Clear to auscultation bilaterally, Normal air movement Cardiovascular: Regular rate/rhythm, Normal S1 S2 Gastrointestinal: Normal bowel sounds, No tenderness Musculoskeletal: No tenderness Integumentary: No rashes Neurological: Normal speech, Normal tone, Normal affect Lymphatics: No axilla or inguinal lymphadenopathy - Studies Medications List Reviewed: Yes Assessment And Plan - Current Problems (Diagnosis) (1) Hyponatremia Onset Date: 06/01/16 Current Visit: No Status: Acute Plan: Hyponatremia most likely secondary to SIADH most likely due to SSRI therapy -nephrology on the case. Appreciated recommendations -IV fluids stopped. Currently on sodium tabs. Sodium today 125 and improving. -will continue to monitor patient closely. Fluid restriction along with high sodium diet. (2) SIADH (syndrome of inappropriate ADH production) Current Visit: Yes Status: Chronic Plan: Patient with SIADH most likely secondary to chronic SSRI therapy -as above (3) Diverticulitis Current Visit: No Status: Chronic Plan: Recent history of diverticulitis -restarted on Levaquin and Flagyl (4) History of TIA (transient ischemic attack) Current Visit: No Status: Chronic (5) History of gastroesophageal reflux (GERD) Current Visit: No Status: Chronic (6) History of hypertension Current Visit: No Status: Chronic (7) History of migraine Current Visit: No Status: Chronic - Plan Pending clinical improvement at this time. Will follow up with CBC tomorrow morning along with BMP. Will have patient worked with physical therapy and occupational therapy. Discharge Plan: Home Plan to discharge in: Greater than 2 days - Code Status/Comfort Care Code Status Assessed: Yes Critical Care: No
[2019-09-26 14:12] LABS: Urine Appearance CLEAR; Urine Bilirubin NEGATIVE (NEG); Urine Blood NEGATIVE (NEG); Urine Color YELLOW; Urine Glucose NEGATIVE (NEG); Urine Protein NEGATIVE (NEG); Urine Urobilinogen 0.2 mg/dL (0.2-1.0); Urine pH 7.5 (5.0-7.0)
[2019-09-26 14:19] LABS: Urine Microscopic Reflex ORDER UMIC
[2019-09-26 14:24] LABS: Urine Bacteria 20-50 /HPF (<20); Urine Culture Reflex Order REFLEXED
[2019-09-26] MEDS: SODIUM CHLORIDE 1 GM TAB PO SCH (16:18)
[2019-09-26] MEDS: [UNRECOGNIZED DRUG - REMARK] IH SCH (21:00)
[2019-09-26] MEDS: MELATONIN 3 MG TABLET PO SCH (21:42)
[2019-09-26] MEDS: FAMOTIDINE 20 MG TAB PO PRN (21:42)
[2019-09-26] MEDS: ASPIRIN 81 MG CHEWABLE TABLET PO SCH (21:42)
[2019-09-27] MEDS: metroNIDAZOLE 500 MG TABLET PO SCH ×2 (02:16→08:36)
[2019-09-27] MEDS: METOPROLOL TAR 25 MG TAB PO SCH (05:27)
[2019-09-27] MEDS: LEVOTHYROXINE SOD 0.05 MG TABLET PO SCH (05:28)
[2019-09-27 06:28] LABS: Albumin 2.4 g/dL (3.4-5.0); Magnesium 1.9 mg/dL (1.8-2.4); Phosphorus 1.7 mg/dL (2.5-4.9); Potassium 4.3 mmol/L (3.5-5.1); Thyroid Stimulating Hormone 2.65 uIU/mL (0.360-3.740); Uric Acid 2.5 mg/dL (2.6-6.0)
[2019-09-27] MEDS: levoFLOXacin 500 MG TAB PO SCH (08:35)
[2019-09-27] MEDS: SODIUM CHLORIDE 1 GM TAB PO SCH (08:35)
[2019-09-27] MEDS: SERTRALINE HCL 100 MG TAB PO SCH (08:35)
[2019-09-27] MEDS: AMLODIPINE 5 MG TAB PO SCH (08:36)
[2019-09-27] MEDS: [UNRECOGNIZED DRUG - OTHER] PO SCH (09:00)
[2019-09-27] MEDS: CALCIUM CITRATE PO SCH (09:00)
[2019-09-27] MEDS: VITAMIN D3 PO SCH (09:00)
[2019-09-27] MEDS ORDERED: MAGNESIUM SULFATE 1 gm IVPB 1 GM/100 ML BAG IV ONE (10:01)
[2019-09-27] MEDS ORDERED: POTASSIUM PHOS 20 MM in NA CHLORIDE 0.9% 500 ML IV ONE (10:02)
[2019-09-27 11:30] VITALS: O2SAT 98
[2019-09-27] MEDS ORDERED: SODIUM CHLORIDE 1 GM TAB PO SCH (14:00)
[2019-09-27 14:21] VITALS: BP 179/75; TEMP 97.8
--- NOTE | 2019-09-27 15:12 | PN ---
Date of Progress Note: 09/27/2019 Subjective: The patient was admitted with hyponatremia secondary to baseline of SIADH secondary to S SR superimposed with depletional hyponatremia. Patient was started on IV fluid. Sodium started grad ually trending up. Yesterday, we started the patient on salt tablet. Sodium continue to trend up, s till on the lower side. Physical Examination: Vital Signs: When I saw the patient, blood pressure of 122/63, pulse of 63, afebrile. The patient h ad good urine output. Chest: Clear to auscultation. Heart: S1, S2. Regular. Systolic murmur. Abdomen: Soft, nontender. Extremities: No edema. Laboratory Data: Sodium 126, potassium 4.3, bicarb 27, BUN 11, creatinine 0.6, uric acid 2.5, calciu m 8.2, phos 1.7, magnesium 1.9. Cortisol level 21. TSH 2.6. Urine osmolality of 300. Sodium in th e urine 68. Current Medications: The patient on include Levaquin 500 daily, Flagyl 500 t.i.d., amlodipine 5 mg d aily, metoprolol 12.5 b.i.d., Zoloft, Pepcid, levothyroxine, salt tablet 1 g b.i.d. Assessment And Plan: 1.Hyponatremia, currently back to her chronic SIADH supported with uric acid and elevatio n in urine sodium. I am going to go ahead and increase her salt tablet to 3 times a day. Start the patient on Lasix 20 mg daily and we will monitor the patient. 2.Hypomagnesemia, hypophosphatemia. We will supplement the patient. 3.Colitis. Continue current antibiotic dose appropriate. ADOLFO Voice ID: [id number] Report ID: [id number]
--- NOTE | 2019-09-27 15:41 | P.DS ---
Admission Date: 09/25/19 Discharge Date: 09/27/19 Primary Care Provider: Dr. Bravo Disposition: ROUTINE DISCHARGE Discharge Condition: GOOD Reason for Admission: Lethargic/altered mental status/nausea/moderate hyponatremia Consultations: Nephrology - Problems (1) Hyponatremia Onset Date: 06/01/16 Current Visit: No Status: Acute (2) SIADH (syndrome of inappropriate ADH production) Current Visit: Yes Status: Chronic (3) Diverticulitis Current Visit: No Status: Chronic (4) History of TIA (transient ischemic attack) Current Visit: No Status: Chronic (5) History of gastroesophageal reflux (GERD) Current Visit: No Status: Chronic (6) History of hypertension Current Visit: No Status: Chronic (7) History of migraine Current Visit: No Status: Chronic Brief History of Present Illness: Patient is an 84-year-old female who I recently admitted with abdominal pain, nausea, vomiting, and diarrhea. This was found have been secondary to diverticulitis. She was given IV antibiotics in the hospital and discharged a day later with oral antibiotics. Her diarrhea has resolved. However she has not been eating well and has had significant nausea and vomiting. She just does not feel like herself and is very lethargic and not really giving me much of a history because she feels like she needs her rest. In the emergency room, her workup revealed hyponatremia with a sodium of 116. She has had chronic low sodiums but never this low. 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 Will put her on some saline and recheck her sodium level. Will check a FeNa. 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 Hospital Course: Overall during the hospital stay patient remained stable. Pt was admitted for Hyponatremia. Was initially started on IV Fluids which were stopped given that pt Hyponatremia was most likely 2.2 to SIADH due to her taking SSRI. Pt was infact started on PO NA tabs. Nephrology was consulted who agreed with the plan. When pt NA improved and pt was able to Ambulate and Tolerate diet she was DC home under stable condition. She was asked to be on Fluid restriction and Low NA diet. Vital Signs/Physical Exam: Temp Pulse Resp BP Pulse Ox 97.8 F 72 16 179/75 H 96 09/27/19 12:00 09/27/19 12:00 09/27/19 12:00 09/27/19 12:00 09/27/19 12:00 General: Alert, In no apparent distress HEENT: Atraumatic, PERRLA, EOMI Neck: Supple, JVD not distended Respiratory: Clear to auscultation bilaterally, Normal air movement Cardiovascular: Regular rate/rhythm, Normal S1 S2 Gastrointestinal: Normal bowel sounds, No tenderness Musculoskeletal: No tenderness Integumentary: No rashes Neurological: Normal speech, Normal tone, Normal affect Lymphatics: No axilla or inguinal lymphadenopathy Laboratory Data at Discharge: WBC 7.4 K/uL (4.3-10.9) D 09/26/19 05:29 Hgb 12.2 g/dL (12.0-15.0) 09/26/19 05:29 Hct 34.5 % (36.0-45.0) L 09/26/19 05:29 Plt Count 218 K/uL (152-406) 09/26/19 05:29 Sodium 126 mmol/L (136-145) L 09/27/19 05:31 Potassium 3.7 mmol/L (3.5-5.1) 09/27/19 11:06 BUN 11 mg/dL (7-18) 09/27/19 05:31 Creatinine 0.64 mg/dL (0.55-1.3) 09/27/19 05:31 Glucose 95 mg/dL (74-106) 09/27/19 05:31 Uric Acid 2.5 mg/dL (2.6-6.0) L 09/27/19 05:31 Phosphorus 1.7 mg/dL (2.5-4.9) L 09/27/19 05:31 Magnesium 1.9 mg/dL (1.8-2.4) 09/27/19 05:31 Total Bilirubin 0.4 mg/dL (0.2-1.0) 09/26/19 05:29 AST 60 U/L (15-37) H 09/26/19 05:29 ALT 50 U/L (12-78) 09/26/19 05:29 Alkaline Phosphatase 31 U/L (45-117) L 09/26/19 05:29 Lipase 86 U/L (73-393) 09/25/19 01:15 Home Medications: Magnesium Oxide [Magnesium] 1 tab PO BID 05/31/16 Melatonin [Melatonin*] 1 tab PO BEDTIME 05/31/16 Telmisartan 80 mg PO DAILY 05/31/16 Alendronate Sodium 1 tab PO SEECOM 09/20/19 Amlodipine [Norvasc*] 1 tab PO DAILY 09/20/19 Aspirin [Jarrell Chewable Aspirin] 1 tab PO BEDTIME 09/20/19 Calcium Citrate/Vitamin D3 [Calcium Citrate-Vit D3 Caplet] 1 tab PO BID Cholecalciferol (Vitamin D3) [Vitamin D3] 1 tab PO DAILY 09/20/19 Culturelle Probiotics 1 tab PO DAILY 09/20/19 Famotidine 1 tab PO BEDTIME PRN 09/20/19 Levothyroxine [Synthroid*] 1 tab PO DAILY 09/20/19 Metoprolol Tartrate 0.5 tab PO BID 09/20/19 Mirtazapine 1 tab PO BEDTIME 09/20/19 Nasacort Allergy 24 Hr 1 puff IH BEDTIME PRN 09/20/19 Chandler-3S/Dha/Epa/Fish Oil [Fish Oil Chandler-3 Softgel] 3 cap PO BID 09/20/19 Sertraline [Zoloft*] 1 tab PO DAILY 09/20/19 Vitamin B Complex [Vitamin B Complex*] 1 tab PO DAILY 09/20/19 Levofloxacin [Levaquin] 500 mg PO DAILY 09/25/19 Meclizine HCl 25 mg PO DAILY PRN 09/25/19 metroNIDAZOLE [Metronidazole] 500 mg PO Q8H 09/25/19 Furosemide [Lasix*] 20 mg PO DAILY #30 tab 09/27/19 Sodium Chloride Tab [Sodium Chloride*] 1 gm PO TID #90 tab 09/27/19 New Medications: Furosemide [Lasix*] 20 mg PO DAILY #30 tab Sodium Chloride Tab [Sodium Chloride*] 1 gm PO TID #90 tab Diet: Regular Activity: Ad emerald Followup: tSefani Bolaños MD [ACTIVE - CAN ADMIT] - 1 Week
[2019-09-27] MEDS ORDERED: POTASS/SODIUM PHOSPHATE 1 PKT POWD.PACK PO SCH (21:00)
[2019-09-28] MEDS ORDERED: FUROSEMIDE 20 MG TABLET PO SCH (09:00)
== END 2019-09-27 18:01 | disposition home or self-care (01) | DRG 644 ==
LOC: ER 00:48 → 2ND 03:06
PROVIDERS: ADMIT Hospitalist; ATTEND Hospitalist
DX: E22.2 Syndrome of inappropriate secretion of antidiuretic hormone (principal); K57.92 Diverticulitis of intestine, part unspecified, without perforation or abscess without bleeding; K21.9 Gastro-esophageal reflux disease without esophagitis; I10 Essential (primary) hypertension; E83.42 Hypomagnesemia; E83.39 Other disorders of phosphorus metabolism; K52.9 Noninfective gastroenteritis and colitis, unspecified; G43.909 Migraine, unspecified, not intractable, without status migrainosus; Z86.73 Personal history of transient ischemic attack (TIA), and cerebral infarction without residual deficits; E03.9 Hypothyroidism, unspecified; F41.8 Other specified anxiety disorders; Z88.0 Allergy status to penicillin
CPT/HCPCS: 36415; 51702; 71045; 74019; 80048; 80053; 80069; 80076; 81003; 81015; 82533; 82570; 83690; 83735; 83880; 83930; 83935; 84132; 84300; 84443; 84484; 84550; 85025; 85610; 87086; 87088; 93005; 96361; 96374; 97116; 97161; 97530; 99285; J2405; J3475; J7030; J7040

== ENCOUNTER 2023-06-22 07:29 | Emergency (ER) | payer OTHER ==
--- OUTSIDE RECORDS SUMMARY | 2023-06-22 07:36 | XMS REPORT | Continuity of Care Document ---
:1935 Author Organization [facility] t Address [address] [place] [address]. [address] [place] [address] Care Team Providers Name Role Phone Karena Joelle Attending Clinician Unavailable Jessica Bravo Attending Clinician Unavailable JT_ELIGIO_Chencho_Brenda Attending Clinician Unavailable KENNETH BINGHAM Attending Clinician Unavailable CHARLOTTE_SARAH Attending Clinician Unavailable SARAH PORTER Attending Clinician Unavailable JT_ELIGIO_Chencho_Brenda Admitting Clinician Unavailable CHARLOTTE_SARAH Admitting Clinician Unavailable Payers Payer Name Policy Type Policy Number Effective Date Expiration Date S kiera Comprimato [id number] HEALTHCARE (MEDICARE REPLACEMENT/ADVA NTAGE - PPO) MEDICARE B-[place]: [id number] 1999 [facility] 00:00:00 [employer] 111 [id number] 2022 Common HEALTHCARE 00:00:00 [facility] - [facility] MEDIC[facility] Problems Condition Condition Condition Status Onset Resolution Last Treating Co mments Source Name Details Category Date Date Treatment Clinician Date Esotropia Esotropia Problem Active [facility] 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 6-02 da 00:00: [facility] Disorder Disorder Problem Active [place] of thyroid of Thyroid 430 da gland Gland 00:00: [facility] Nonexudati Nonexudati Problem Active M [facility] ve ve 4-30 da age-relate Age-relate 00:00: Ep iscop d macular 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 al degenerati Degenerati He alth on on [facility] Myopia Myopia Problem Active [facility] 4-30 da 00:00: [facility] Regular Regular Problem Active [facility] astigmatis Astigmatis 4-30 da m m 00:00: [facility] Presbyopia Presbyopia Problem Active M [facility] 4-30 da 00:00[facility] Bilateral Bilateral Problem Active [facility] pseudophak Pseudophak 4-30 da ia ia 00:00: [facility] [id number] Memory Problem Common deficit [facility] Osteoporos Osteoporos Problem C [facility] [place] is is [facility] 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 disease) Medical stage 3, Center GFR 30-59 ml/min Osteopenia Osteopenia Problem C [facility] Unsteady Unsteady Problem Commo n gait gait [facility] Mixed Depression Problem Commo n anxiety with Spirit and anxiety - [facility]I depressive [facility] Hyperglyce Elevated Problem Com [facility] siri glucose [facility] Dysphagia Dysphagia Problem Com [facility] Acquired Acquired Problem Commo n hypothyroi hypothyroi Sp amelia dism [facility] [id number] Vaginal Problem Common itching [facility] Seasonal Seasonal Problem Commo n allergy allergies Spirit [facility] [id number] Elevated Problem Comm on TSH Spirit [facility] [id number] +5th digit Problem Com mon eff Spirit 08/15/22*Ye - CHI ast St infection 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 [facility] [id number] History of Problem Co mmon melanoma [facility] [id number] Adult Problem Common general [facility] medical [facility] exam [facility] [id number] Primary Problem Commo n osteoarthr Spirit itis of - CHI both knees [facility] Anxiety Anxiety Problem Common [facility] History of H/O TIA Problem Comm on cerebrovas (transient Sp amelia cular ischemic - CHI accident attack) [facility] and stroke [facility] [id number] Primary Problem Commo n osteoarthr Spirit itis of - [facility]I left hip [facility] Coagulatio Abnormal Problem Com mon n/bleeding prothrombi Sp amelia tests n time - [facility] abnormal (PT) [facility] [id number] Diverticul Problem Co mmon osis [facility] Gastroesop Gastroesop Problem C ommon hageal hageal [facility] reflux reflux - [facility], [facility] Med[facility] l not Center specified Moderately Moderately Problem C ommon severe severe Spirit depression depression [facility] Allergies, Adverse Reactions, Alerts Allergy Allergy Status Severity Reaction(s) Onset Inactive Treating Comm ents Source Name Type Date Date Clinician sulfamet sulfamet Active Unknown Commo n hoxazole hoxazole Spirit / / - CHI trimetho trimetho [facility] lansopra lansopra Active Unknown Commo n zole zole [facility] [id number] Drug Active Unknown Common 93 allergy [facility] MACROLID Allergy Active [place] to da ANTIBIOT substanc [facility] PENICILL Allergy Active [place] INS to da substanc [facility] Social History Social Habit Start Date Stop Date Quantity Comments Source History of Tobacco Use Co mmon [facility] Sex Assigned At Com mon [facility] Smoking Status Start Date Stop Date Source Never Smoker Common [facility] Medications Ordered Filled Start Stop Current Ordering Indication Dosage Frequency Signature Comments Components Source Medication Medication Date Date Medication? Clinician (SIG) Name Name Memantine Memantine 2020-11 No 1{table QD Memantine HCl 5 MG HCl 5 MG 1-16 t} HCl 5 MG 00:00: 00 Memantine Memantine 2020-11 No 1{table QD Memantine HCl 5 MG HCl 5 MG 1-16 t} HCl 5 MG 00:00: 00 Metoprolol Metoprolol Yes Na Bravo 1 capsule Common Succinate Succinate 07-24 Spiri t 00:00: - [facility]I 00 [facility] Metoprolol Metoprolol No 1{capsu QD Metoprolol Succinate Succinate 07-24} Succinate 25 MG 25 MG 00:00: 25 MG 00 Metoprolol Metoprolol No 1{capsu QD Metoprolol Succinate Succinate 07-24} Succinate 25 MG 25 MG 00:00: 25 MG 00 Metoprolol Metoprolol No 1{capsu QD Metoprolol Succinate Succinate 07-24} Succinate 25 MG 25 MG 00:00: 25 MG 00 Metoprolol Metoprolol 2018- No 1{capsu QD Metoprolol Succinate Succinate 07-24 le} Succinate 25 MG 25 MG 00:00: 25 MG 00 Metoprolol Metoprolol No 1{capsu QD Succinate Succinate 07-24 le} 25 MG 25 MG 00:00: 00 Metoprolol Metoprolol No 1{capsu QD Metoprolol Succinate Succinate 07-24 le} Succinate 25 MG 25 MG 00:00: 25 MG 00 Metoprolol Metoprolol No 1{capsu QD Metoprolol Succinate Succinate 07-24 le} Succinate 25 MG 25 MG 00:00: 25 MG 00 Metoprolol Metoprolol No 1{capsu QD Metoprolol Succinate Succinate 07-24 le} Succinate 25 MG 25 MG 00:00: 25 MG 00 Metoprolol Metoprolol No 1{capsu QD Metoprolol Succinate Succinate 07-24} Succinate 25 MG 25 MG 00:00: 25 MG 00 Metoprolol Metoprolol No 1{capsu QD Metoprolol Succinate Succinate 07-24} Succinate 25 MG 25 MG 00:00: 25 MG 00 Metoprolol Metoprolol No 1{capsu QD Metoprolol Succinate Succinate 07-24} Succinate 25 MG 25 MG 00:00: 25 MG 00 Metoprolol Metoprolol No 1{capsu QD Metoprolol Succinate Succinate 07-24} Succinate 25 MG 25 MG 00:00: 25 MG 00 Metoprolol Metoprolol No 1{capsu QD Metoprolol Succinate Succinate 07-24} Succinate 25 MG 25 MG 00:00: 25 MG 00 Metoprolol Metoprolol No 1{capsu QD Metoprolol Succinate Succinate 07-24} Succinate 25 MG 25 MG 00:00: 25 MG 00 Metoprolol Metoprolol No 1{capsu QD Metoprolol Succinate Succinate 07-24} Succinate 25 MG 25 MG 00:00: 25 MG 00 Metoprolol Metoprolol No 1{capsu QD Metoprolol Succinate Succinate 07-24} Succinate 25 MG 25 MG 00:00: 25 MG 00 Metoprolol Metoprolol No 1{capsu QD Metoprolol Succinate Succinate 07-24} Succinate 25 MG 25 MG 00:00: 25 MG 00 Metoprolol Metoprolol No 1{capsu QD Metoprolol Succinate Succinate 07-24} Succinate 25 MG 25 MG 00:00: 25 MG 00 Metoprolol Metoprolol No 1{capsu QD Metoprolol Succinate Succinate 07-24} Succinate 25 MG 25 MG 00:00: 25 MG 00 Fluconazole Fluconazole 2017-11 Yes Na Bravo 1 tablet Common 2-04 today and Spirit 00:00: march repeat - one tab in St 1 week [facility] no [facility] t Premarin Premarin 2017-11 Yes Na Bravo apply half Common 2-04 a gram per Spirit 00:00: vaginal - CHI [facility] Fluconazole Fluconazole 2017-11 No Fluconazol 150 MG 150 MG 2-04 e 150 MG 00:00: 00 Premarin Premarin 2017-11 No Premarin 0.625 MG/GM 0.625 MG/GM 2-04 0.625 00:00: MG/GM 00 Premarin Premarin 2017-11 No Premarin 0.625 MG/GM 0.625 MG/GM 2-04 0.625 00:00: MG/GM 00 Fluconazole Fluconazole 2017-11 No Fluconazol 150 MG 150 MG 2-04 e 150 MG 00:00: 00 Premarin Premarin 2017-11 No Premarin 0.625 MG/GM 0.625 MG/GM 2-04 0.625 00:00: MG/GM 00 Fluconazole Fluconazole 2017-11 No Fluconazol 150 MG 150 MG 2-04 e 150 MG 00:00: 00 Fluconazole Fluconazole 2017-11 No 150 MG 150 MG 2-04 00:00: 00 Premarin Premarin 2017-11 No 0.625 MG/GM 0.625 MG/GM 2-04 00:00: 00 Fluconazole Fluconazole 2017-11 No Fluconazol 150 MG 150 MG 2-04 e 150 MG 00:00: 00 Premarin Premarin 2017-11 No Premarin 0.625 MG/GM 0.625 MG/GM 2-04 0.625 00:00: MG/GM 00 Fluconazole Fluconazole 2017-11 No Fluconazol 150 MG 150 MG 2-04 e 150 MG 00:00: 00 Premarin Premarin 2017-11 No Premarin 0.625 MG/GM 0.625 MG/GM 2-04 0.625 00:00: MG/GM 00 Fluconazole Fluconazole 2017-11 No Fluconazol 150 MG 150 MG 2-04 e 150 MG 00:00: 00 Premarin Premarin 2017-11 No Premarin 0.625 MG/GM 0.625 MG/GM 2-04 0.625 00:00: MG/GM 00 Amlodipine Amlodipine Yes Na Bravo 1 tablet Common Besylate Besylate [facility] Fosamax Fosamax Yes Na Bravo 1 tablet Co mmon [facility] Levothyroxi Levothyroxi Yes Na Bravo 1 tablet Common ne Sodium ne Sodium on an Spir it empty - CHI stomach in [facility] Imitrex Imitrex Yes Na Bravo 1 tablet Co mmon as needed [facility] Alendronate Alendronate Yes Na Bravo TAKE 1 Common Sodium Sodium TABLET BY Spirit MOUTH ONCE - CHI A WEEK [facility] Cetirizine Cetirizine Yes Na Bravo 1 tablet Common HCl HCl [facility] Yes Na Bravo 1 Common ne ne applicatio Spirit Acetonide Acetonide n to - CHI affected [facility] Cozaar Cozaar Yes Na Bravo 1 tablet Comm on [facility] Meclizine Meclizine Yes Na Bravo 1 tablet Common HCl HCl as needed [facility] Protonix Protonix Yes Na Bravo 1 tablet Common [facility] Amlodipine Amlodipine Yes Na Bravo 1 tablet Common Besylate Besylate [facility] Levothyroxi Levothyroxi Yes Na Bravo TAKE 1 Common ne Sodium ne Sodium TABLET BY Spirit MOUTH IN - CHI THE St MORNING ON [facility] Zoloft Zoloft Yes Na Bravo TAKE 1 Common TABLET BY Spirit MOUTH - [facility] DAILY [facility] Famotidine Famotidine Yes Na Bravo 1 tablet Common at bedtime [facility] as needed [facility] Yes Na Bravo 1 Common ne ne applicatio Spirit Acetonide Acetonide n to - CHI affected [facility] Prilosec Prilosec Yes Na Bravo 1 capsule Common [facility] Nystatin Nystatin Yes Na Bravo 4 ml Comm on [facility] Synthroid Synthroid Yes Na Bravo TAKE 1 Common TABLET BY Spirit MOUTH ONCE - CHI A DAY [facility] Pantoprazol Pantoprazol Yes Na Bravo 1 tablet Common e Sodium e Sodium [facility] Mirtazapine Mirtazapine Yes Na Bravo TAKE 1 Common TABLET BY Spirit MOUTH ONCE - CHI A DAY AT St BEDTIME [facility] Nexium Nexium Yes Na Bravo 1 capsule Com mon [facility] Telmisartan Telmisartan Yes Na Bravo 1 tablet Common [facility] Aspirin 81 Aspirin 81 Yes Na Bravo 1 tablet Common [facility] Zantac Zantac Yes Na Bravo 1 tablet Comm on at bedtime [facility] Eye Eye Yes Na Bravo as Common Vitamins Vitamins directed Spi [facility] Prevagen Prevagen Yes Na Bravo as Comm on directed [facility] Mirtazapine Mirtazapine Yes Na Bravo 1 tablet Common at bedtime [facility] Atorvastati Atorvastati No Atorvastat n Calcium n Calcium in Calcium 20 MG 20 MG 20 MG Zoloft 100 Zoloft 100 No Zoloft 100 MG MG MG Mirtazapine Mirtazapine No Mirtazapin 15 MG 15 MG e 15 MG [place] 3 [place] 3 No [place] 3 Montelukast Montelukast No Montelukas Sodium 10 Sodium 10 t Sodium MG MG 10 MG amLODIPine amLODIPine No 1{table amLODIPine Besylate 5 Besylate 5 t} Besylate 5 MG MG MG Alendronate Alendronate No Alendronat Sodium 70 Sodium 70 e Sodium MG MG 70 MG Vitamin B Vitamin B No Vitamin B Complex Complex Complex Memantine Memantine No Memantine HCl 10 MG HCl 10 MG HCl 10 MG Vitamin D3 Vitamin D3 No Vitamin D3 Pantoprazol Pantoprazol No Pantoprazo e Sodium 40 e Sodium 40 le Sodium MG MG 40 MG Memantine Memantine No 1{table QD Memantine HCl 10 MG HCl 10 MG t} HCl 10 MG Telmisartan Telmisartan No 1{table QD Telmisarta 80 MG 80 MG t} n 80 MG Aspirin 81 Aspirin 81 No 1{table QD Aspirin 81 81 MG 81 MG t} 81 MG Levothyroxi Levothyroxi No Levothyrox ne Sodium ne Sodium ine Sodium 50 MCG 50 MCG 50 MCG Synthroid Synthroid No Synthroid 25 MCG 25 MCG 25 MCG Aspirin 81 Aspirin 81 No 1{table QD Aspirin 81 81 MG 81 MG t} 81 MG Levothyroxi Levothyroxi No Levothyrox ne Sodium ne Sodium ine Sodium 50 MCG 50 MCG 50 MCG amLODIPine amLODIPine No amLODIPine Besylate 5 Besylate 5 Besylate 5 MG MG MG Pantoprazol Pantoprazol No Pantoprazo e Sodium 40 e Sodium 40 le Sodium MG MG 40 MG Cozaar 100 Cozaar 100 No 1{table QD Cozaar 100 MG MG t} MG NexIUM 40 NexIUM 40 No 1{capsu QD NexIUM 40 MG MG le} MG Zantac 150 Zantac 150 No 1{table QD Zantac 150 MG MG t_at_be MG dtime} Meclizine Meclizine No 1{table QD Meclizine HCl 25 MG HCl 25 MG t_as_ne HCl 25 MG eded} PriLOSEC 20 PriLOSEC 20 No 1{capsu QD PriLOSEC MG MG le} 20 MG Prevagen 10 Prevagen 10 No Prevagen MG MG 10 MG Singulair Singulair No 1{table QD Singulair 10 MG 10 MG t} 10 MG Fosamax 70 Fosamax 70 No 1{table Fosamax 70 MG MG t} MG Triamcinolo Triamcinolo No 1{appli BID Triamcinol ne ne cation_ one Acetonide Acetonide to_affe Acetonide 0.1 % 0.1 % cted_ar 0.1 % ea} Levothyroxi Levothyroxi No QD Levothyrox ne Sodium ne Sodium ine Sodium 25 MCG 25 MCG 25 MCG Eye Eye No Eye Vitamins - Vitamins - Vitamins - Alendronate Alendronate No Alendronat Sodium 70 Sodium 70 e Sodium MG MG 70 MG Imitrex 25 Imitrex 25 No 1{table BID Imitrex 25 MG MG t_as_ne MG eded} Famotidine Famotidine No 1{table QD Famotidine 20 MG 20 MG t_at_be 20 MG dtime_a s_neede d} Mirtazapine Mirtazapine No Mirtazapin 7.5 MG 7.5 MG e 7.5 MG Zoloft 100 Zoloft 100 No Zoloft 100 MG MG MG Fosamax 70 Fosamax 70 No 1{table Fosamax 70 MG MG t} MG Zoloft 100 Zoloft 100 No Zoloft 100 MG MG MG Cetirizine Cetirizine No 1{table QD Cetirizine HCl 10 MG HCl 10 MG t} HCl 10 MG amLODIPine amLODIPine No 1{table amLODIPine Besylate 5 Besylate 5 t} Besylate 5 MG MG MG Mirtazapine Mirtazapine No 1{table QD Mirtazapin 7.5 MG 7.5 MG t_at_be e 7.5 MG dtime} Telmisartan Telmisartan No 1{table QD Telmisarta 80 MG 80 MG t} n 80 MG Triamcinolo Triamcinolo No 1{appli BID Triamcinol ne ne cation_ one Acetonide Acetonide to_affe Acetonide 0.025 % 0.025 % cted_ar 0.025 % ea} Nystatin Nystatin No 4{ml} QID Nystatin [id number] UNIT/ML UNIT/ML UNIT/ML Pantoprazol Pantoprazol No 1{table QD Pantoprazo e Sodium 40 e Sodium 40 t} le Sodium MG MG 40 MG Vitamin D3 Vitamin D3 No Vitamin D3 Cetirizine Cetirizine No 1{table QD Cetirizine HCl 10 MG HCl 10 MG t} HCl 10 MG Zantac 150 Zantac 150 No 1{table QD Zantac 150 MG MG t_at_be MG dtime} Mirtazapine Mirtazapine No 1{table QD Mirtazapin 15 MG 15 MG t_at_be e 15 MG dtime} Famotidine Famotidine No 1{table QD Famotidine 20 MG 20 MG t_at_be 20 MG dtime_a s_neede d} Fosamax 70 Fosamax 70 No 1{table Fosamax 70 MG MG t} MG Magnesium Magnesium No 1{table QD Magnesium 250 MG 250 MG t_with_ 250 MG a_meal} Alendronate Alendronate No Alendronat Sodium 70 Sodium 70 e Sodium MG MG 70 MG Meclizine Meclizine No 1{table QD Meclizine HCl 25 MG HCl 25 MG t_as_ne HCl 25 MG eded} Vitamin B Vitamin B No Vitamin B Complex Complex Complex Fosamax 70 Fosamax 70 No 1{table Fosamax 70 MG MG t} MG Triamcinolo Triamcinolo No 1{appli BID Triamcinol ne ne cation_ one Acetonide Acetonide to_affe Acetonide 0.025 % 0.025 % cted_ar 0.025 % ea} Zoloft 100 Zoloft 100 No Zoloft 100 MG MG MG Pantoprazol Pantoprazol No Pantoprazo e Sodium 40 e Sodium 40 le Sodium MG MG 40 MG Mirtazapine Mirtazapine No Mirtazapin 7.5 MG 7.5 MG e 7.5 MG Nystatin Nystatin No 4{ml} QID Nystatin [id number] UNIT/ML UNIT/ML UNIT/ML Telmisartan Telmisartan No 1{table QD Telmisarta 80 MG 80 MG t} n 80 MG amLODIPine amLODIPine No amLODIPine Besylate 5 Besylate 5 Besylate 5 MG MG MG amLODIPine amLODIPine No 1{table amLODIPine Besylate 5 Besylate 5 t} Besylate 5 MG MG MG Levothyroxi Levothyroxi No Levothyrox ne Sodium ne Sodium ine Sodium 50 MCG 50 MCG 50 MCG Cozaar 100 Cozaar 100 No 1{table QD Cozaar 100 MG MG t} MG Prevagen 10 Prevagen 10 No Prevagen MG MG 10 MG Zoloft 100 Zoloft 100 No Zoloft 100 MG MG MG Triamcinolo Triamcinolo No 1{appli BID Triamcinol ne ne cation_ one Acetonide Acetonide to_affe Acetonide 0.1 % 0.1 % cted_ar 0.1 % ea} Pantoprazol Pantoprazol No 1{table QD Pantoprazo e Sodium 40 e Sodium 40 t} le Sodium MG MG 40 MG Synthroid Synthroid No Synthroid 25 MCG 25 MCG 25 MCG Aspirin 81 Aspirin 81 No 1{table QD Aspirin 81 81 MG 81 MG t} 81 MG Eye Eye No Eye Vitamins - Vitamins - Vitamins - Imitrex 25 Imitrex 25 No 1{table BID Imitrex 25 MG MG t_as_ne MG eded} [place] 3 [place] 3 No [place] 3 Levothyroxi Levothyroxi No QD Levothyrox ne Sodium ne Sodium ine Sodium 25 MCG 25 MCG 25 MCG NexIUM 40 NexIUM 40 No 1{capsu QD NexIUM 40 MG MG le} MG PriLOSEC 20 PriLOSEC 20 No 1{capsu QD PriLOSEC MG MG le} 20 MG Singulair Singulair No 1{table QD Singulair 10 MG 10 MG t} 10 MG Vitamin D3 Vitamin D3 No Vitamin D3 Cetirizine Cetirizine No 1{table QD Cetirizine HCl 10 MG HCl 10 MG t} HCl 10 MG Zantac 150 Zantac 150 No 1{table QD Zantac 150 MG MG t_at_be MG dtime} Mirtazapine Mirtazapine No 1{table QD Mirtazapin 15 MG 15 MG t_at_be e 15 MG dtime} Famotidine Famotidine No 1{table QD Famotidine 20 MG 20 MG t_at_be 20 MG dtime_a s_neede d} Fosamax 70 Fosamax 70 No 1{table Fosamax 70 MG MG t} MG Magnesium Magnesium No 1{table QD Magnesium 250 MG 250 MG t_with_ 250 MG a_meal} Alendronate Alendronate No Alendronat Sodium 70 Sodium 70 e Sodium MG MG 70 MG Meclizine Meclizine No 1{table QD Meclizine HCl 25 MG HCl 25 MG t_as_ne HCl 25 MG eded} Vitamin B Vitamin B No Vitamin B Complex Complex Complex Fosamax 70 Fosamax 70 No 1{table Fosamax 70 MG MG t} MG alendronate alendronate No alendronat [place] sodium 70 sodium 70 e sodium d a mg tabs mg tabs 70 mg tabs [facility] Triamcinolo Triamcinolo No 1{appli BID Triamcinol ne ne cation_ one Acetonide Acetonide to_affe Acetonide 0.025 % 0.025 % cted_ar 0.025 % ea} Zoloft 100 Zoloft 100 No Zoloft 100 MG MG MG Pantoprazol Pantoprazol No Pantoprazo e Sodium 40 e Sodium 40 le Sodium MG MG 40 MG Mirtazapine Mirtazapine No Mirtazapin 7.5 MG 7.5 MG e 7.5 MG Nystatin Nystatin No 4{ml} QID Nystatin [id number] UNIT/ML UNIT/ML UNIT/ML Telmisartan Telmisartan No 1{table QD Telmisarta 80 MG 80 MG t} n 80 MG amLODIPine amLODIPine No amLODIPine Besylate 5 Besylate 5 Besylate 5 MG MG MG amLODIPine amLODIPine No 1{table amLODIPine Besylate 5 Besylate 5 t} Besylate 5 MG MG MG Levothyroxi Levothyroxi No Levothyrox ne Sodium ne Sodium ine Sodium 50 MCG 50 MCG 50 MCG Cozaar 100 Cozaar 100 No 1{table QD Cozaar 100 MG MG t} MG amlodipine amlodipine No amlodipine [place] 10 mg 10 mg 10 mg da tablet tablet tablet [facility] Prevagen 10 Prevagen 10 No Prevagen MG MG 10 MG Zoloft 100 Zoloft 100 No Zoloft 100 MG MG MG Triamcinolo Triamcinolo No 1{appli BID Triamcinol ne ne cation_ one Acetonide Acetonide to_affe Acetonide 0.1 % 0.1 % cted_ar 0.1 % ea} Pantoprazol Pantoprazol No 1{table QD Pantoprazo e Sodium 40 e Sodium 40 t} le Sodium MG MG 40 MG Synthroid Synthroid No Synthroid 25 MCG 25 MCG 25 MCG Aspirin 81 Aspirin 81 No 1{table QD Aspirin 81 81 MG 81 MG t} 81 MG Eye Eye No Eye Vitamins - Vitamins - Vitamins - Imitrex 25 Imitrex 25 No 1{table BID Imitrex 25 MG MG t_as_ne MG eded} [place] 3 [place] 3 No [place] 3 Levothyroxi Levothyroxi No QD Levothyrox ne Sodium ne Sodium ine Sodium 25 MCG 25 MCG 25 MCG fluconazole fluconazole No fluconazol [place] 150 mg 150 mg e 150 mg da tablet tablet tablet [facility] NexIUM 40 NexIUM 40 No 1{capsu QD NexIUM 40 MG MG le} MG PriLOSEC 20 PriLOSEC 20 No 1{capsu QD PriLOSEC MG MG le} 20 MG Singulair Singulair No 1{table QD Singulair 10 MG 10 MG t} 10 MG Levothyroxi Levothyroxi No ne Sodium ne Sodium 50 MCG 50 MCG Zantac 150 Zantac 150 No 1{table QD MG MG t_at_be dtime} amLODIPine amLODIPine No 1{table Besylate 5 Besylate 5 t} MG MG Prevagen 10 Prevagen 10 No MG MG [place] 3 [place] 3 No Sertraline Sertraline No HCl 100 MG HCl 100 MG Pantoprazol Pantoprazol No e Sodium 40 e Sodium 40 MG MG furosemide furosemide No furosemide [place] 20 mg tabs 20 mg tabs 20 mg tabs da [facility] Pantoprazol Pantoprazol No 1{table QD e Sodium 40 e Sodium 40 t} MG MG Montelukast Montelukast No Sodium 10 Sodium 10 MG MG Alendronate Alendronate No Sodium 70 Sodium 70 MG MG Vitamin B Vitamin B No Complex Complex Mirtazapine Mirtazapine No 7.5 MG 7.5 MG Aspirin 81 Aspirin 81 No 1{table QD 81 MG 81 MG t} Magnesium Magnesium No 1{table QD 250 MG 250 MG t_with_ a_meal} amLODIPine amLODIPine No Besylate 5 Besylate 5 MG MG Eye Eye No Vitamins - Vitamins - NexIUM 40 NexIUM 40 No 1{capsu QD MG MG le} levothyroxi levothyroxi No levothyrox [place] ne 50 mcg ne 50 mcg ine 50 mcg da tablet tablet tablet [facility] Famotidine Famotidine No 1{table QD 20 MG 20 MG t_at_be dtime_a s_neede d} Fosamax 70 Fosamax 70 No 1{table MG MG t} Zoloft 100 Zoloft 100 No MG MG Imitrex 25 Imitrex 25 No 1{table BID MG MG t_as_ne eded} Mirtazapine Mirtazapine No 1{table QD 15 MG 15 MG t_at_be dtime} Synthroid Synthroid No 25 MCG 25 MCG Memantine Memantine No 1{table QD HCl 10 MG HCl 10 MG t} Vitamin D3 Vitamin D3 No Telmisartan Telmisartan No 1{table QD 80 MG 80 MG t} PriLOSEC 20 PriLOSEC 20 No 1{capsu QD MG MG le} losartan losartan No losartan [place] 100 mg 100 mg 100 mg da tablet tablet tablet [facility] Cetirizine Cetirizine No 1{table QD HCl 10 MG HCl 10 MG t} Meclizine Meclizine No 1{table QD HCl 25 MG HCl 25 MG t_as_ne eded} Cozaar 100 Cozaar 100 No 1{table QD MG MG t} Levothyroxi Levothyroxi No QD ne Sodium ne Sodium 25 MCG 25 MCG Nystatin Nystatin No 4{ml} QID [id number] UNIT/ML UNIT/ML Triamcinolo Triamcinolo No 1{appli BID ne ne cation_ Acetonide Acetonide to_affe 0.025 % 0.025 % cted_ar ea} Fosamax 70 Fosamax 70 No 1{table MG MG t} Triamcinolo Triamcinolo No 1{appli BID ne ne cation_ Acetonide Acetonide to_affe 0.1 % 0.1 % cted_ar ea} Zantac 150 Zantac 150 No 1{table QD Zantac 150 MG MG t_at_be MG dtime} Cozaar 100 Cozaar 100 No 1{table QD Cozaar 100 MG MG t} MG memantine memantine No memantine [place] 10 mg 10 mg 10 mg da tablet tablet tablet [facility] Levothyroxi Levothyroxi No Levothyrox ne Sodium ne Sodium ine Sodium 50 MCG 50 MCG 50 MCG Montelukast Montelukast No Montelukas Sodium 10 Sodium 10 t Sodium MG MG 10 MG Magnesium Magnesium No 1{table QD Magnesium 250 MG 250 MG t_with_ 250 MG a_meal} Mirtazapine Mirtazapine No Mirtazapin 7.5 MG 7.5 MG e 7.5 MG Fosamax 70 Fosamax 70 No 1{table Fosamax 70 MG MG t} MG Vitamin D3 Vitamin D3 No Vitamin D3 Prevagen 10 Prevagen 10 No Prevagen MG MG 10 MG Sertraline Sertraline No Sertraline HCl 100 MG HCl 100 MG HCl 100 MG Vitamin B Vitamin B No Vitamin B Complex Complex Complex Pantoprazol Pantoprazol No Pantoprazo e Sodium 40 e Sodium 40 le Sodium MG MG 40 MG metoprolol metoprolol No metoprolol [place] tartrate 25 tartrate 25 tartrate da mg tablet mg tablet 25 mg [facility] gyroscope repairer tablet al [facility] Memantine Memantine No 1{table QD Memantine HCl 10 MG HCl 10 MG t} HCl 10 MG NexIUM 40 NexIUM 40 No 1{capsu QD NexIUM 40 MG MG le} MG Telmisartan Telmisartan No 1{table QD Telmisarta 80 MG 80 MG t} n 80 MG Eye Eye No Eye Vitamins - Vitamins - Vitamins - Levothyroxi Levothyroxi No QD Levothyrox ne Sodium ne Sodium ine Sodium 25 MCG 25 MCG 25 MCG amLODIPine amLODIPine No amLODIPine Besylate 5 Besylate 5 Besylate 5 MG MG MG PriLOSEC 20 PriLOSEC 20 No 1{capsu QD PriLOSEC MG MG le} 20 MG Triamcinolo Triamcinolo No 1{appli BID Triamcinol ne ne cation_ one Acetonide Acetonide to_affe Acetonide 0.1 % 0.1 % cted_ar 0.1 % ea} [place] 3 [place] 3 No [place] 3 Fosamax 70 Fosamax 70 No 1{table Fosamax 70 MG MG t} MG mirtazapine mirtazapine No mirtazapin [place] 15 mg 15 mg e 15 mg da tablet tablet tablet [facility] Zoloft 100 Zoloft 100 No Zoloft 100 MG MG MG Aspirin 81 Aspirin 81 No 1{table QD Aspirin 81 81 MG 81 MG t} 81 MG Pantoprazol Pantoprazol No 1{table QD Pantoprazo e Sodium 40 e Sodium 40 t} le Sodium MG MG 40 MG Mirtazapine Mirtazapine No 1{table QD Mirtazapin 15 MG 15 MG t_at_be e 15 MG dtime} Synthroid Synthroid No Synthroid 25 MCG 25 MCG 25 MCG Alendronate Alendronate No Alendronat Sodium 70 Sodium 70 e Sodium MG MG 70 MG Nystatin Nystatin No 4{ml} QID Nystatin [id number] UNIT/ML UNIT/ML UNIT/ML Meclizine Meclizine No 1{table QD Meclizine HCl 25 MG HCl 25 MG t_as_ne HCl 25 MG eded} Triamcinolo Triamcinolo No 1{appli BID Triamcinol ne ne cation_ one Acetonide Acetonide to_affe Acetonide 0.025 % 0.025 % cted_ar 0.025 % ea} Imitrex 25 Imitrex 25 No 1{table BID Imitrex 25 MG MG t_as_ne MG eded} montelukast montelukast No montelukas [place] 10 mg 10 mg t 10 mg da tablet tablet tablet [facility] Cetirizine Cetirizine No 1{table QD Cetirizine HCl 10 MG HCl 10 MG t} HCl 10 MG Famotidine Famotidine No 1{table QD Famotidine 20 MG 20 MG t_at_be 20 MG dtime_a s_neede d} amLODIPine amLODIPine No 1{table amLODIPine Besylate 5 Besylate 5 t} Besylate 5 MG MG MG Zantac 150 Zantac 150 No 1{table QD Zantac 150 MG MG t_at_be MG dtime} Cozaar 100 Cozaar 100 No 1{table QD Cozaar 100 MG MG t} MG Levothyroxi Levothyroxi No Levothyrox ne Sodium ne Sodium ine Sodium 50 MCG 50 MCG 50 MCG Montelukast Montelukast No Montelukas Sodium 10 Sodium 10 t Sodium MG MG 10 MG Magnesium Magnesium No 1{table QD Magnesium 250 MG 250 MG t_with_ 250 MG a_meal} Mirtazapine Mirtazapine No Mirtazapin 7.5 MG 7.5 MG e 7.5 MG Fosamax 70 Fosamax 70 No 1{table Fosamax 70 MG MG t} MG pantoprazol pantoprazol No pantoprazo [place] 40 mg e 40 mg le 40 mg da tablet,lita tablet,lita tablet,del [facility] Vitamin D3 Vitamin D3 No Vitamin D3 Prevagen 10 Prevagen 10 No Prevagen MG MG 10 MG Sertraline Sertraline No Sertraline HCl 100 MG HCl 100 MG HCl 100 MG Vitamin B Vitamin B No Vitamin B Complex Complex Complex Pantoprazol Pantoprazol No Pantoprazo e Sodium 40 e Sodium 40 le Sodium MG MG 40 MG Memantine Memantine No 1{table QD Memantine HCl 10 MG HCl 10 MG t} HCl 10 MG NexIUM 40 NexIUM 40 No 1{capsu QD NexIUM 40 MG MG le} MG Telmisartan Telmisartan No 1{table QD Telmisarta 80 MG 80 MG t} n 80 MG Eye Eye No Eye Vitamins - Vitamins - Vitamins - Levothyroxi Levothyroxi No QD Levothyrox ne Sodium ne Sodium ine Sodium 25 MCG 25 MCG 25 MCG Premarin Premarin No Premarin [place] 0.625 0.625 0.625 da mg/gram mg/gram mg/gram [facility] p vaginal vaginal vaginal al cream cream cream [facility] amLODIPine amLODIPine No amLODIPine Besylate 5 Besylate 5 Besylate 5 MG MG MG PriLOSEC 20 PriLOSEC 20 No 1{capsu QD PriLOSEC MG MG le} 20 MG Triamcinolo Triamcinolo No 1{appli BID Triamcinol ne ne cation_ one Acetonide Acetonide to_affe Acetonide 0.1 % 0.1 % cted_ar 0.1 % ea} [place] 3 [place] 3 No [place] 3 Fosamax 70 Fosamax 70 No 1{table Fosamax 70 MG MG t} MG Zoloft 100 Zoloft 100 No Zoloft 100 MG MG MG Aspirin 81 Aspirin 81 No 1{table QD Aspirin 81 81 MG 81 MG t} 81 MG Pantoprazol Pantoprazol No 1{table QD Pantoprazo e Sodium 40 e Sodium 40 t} le Sodium MG MG 40 MG Mirtazapine Mirtazapine No 1{table QD Mirtazapin 15 MG 15 MG t_at_be e 15 MG dtime} Synthroid Synthroid No Synthroid 25 MCG 25 MCG 25 MCG ranitidine ranitidine No ranitidine [place] 150 mg 150 mg 150 mg da tablet tablet tablet [facility] Alendronate Alendronate No Alendronat Sodium 70 Sodium 70 e Sodium MG MG 70 MG Nystatin Nystatin No 4{ml} QID Nystatin [id number] UNIT/ML UNIT/ML UNIT/ML Meclizine Meclizine No 1{table QD Meclizine HCl 25 MG HCl 25 MG t_as_ne HCl 25 MG eded} Triamcinolo Triamcinolo No 1{appli BID Triamcinol ne ne cation_ one Acetonide Acetonide to_affe Acetonide 0.025 % 0.025 % cted_ar 0.025 % ea} Imitrex 25 Imitrex 25 No 1{table BID Imitrex 25 MG MG t_as_ne MG eded} Cetirizine Cetirizine No 1{table QD Cetirizine HCl 10 MG HCl 10 MG t} HCl 10 MG Famotidine Famotidine No 1{table QD Famotidine 20 MG 20 MG t_at_be 20 MG dtime_a s_neede d} amLODIPine amLODIPine No 1{table amLODIPine Besylate 5 Besylate 5 t} Besylate 5 MG MG MG Zantac 150 Zantac 150 No 1{table QD Zantac 150 MG MG t_at_be MG dtime} Cozaar 100 Cozaar 100 No 1{table QD Cozaar 100 MG MG t} MG sertraline sertraline No sertraline [place] 100 mg 100 mg 100 mg da tablet tablet tablet [facility] Levothyroxi Levothyroxi No Levothyrox ne Sodium ne Sodium ine Sodium 50 MCG 50 MCG 50 MCG Montelukast Montelukast No Montelukas Sodium 10 Sodium 10 t Sodium MG MG 10 MG Magnesium Magnesium No 1{table QD Magnesium 250 MG 250 MG t_with_ 250 MG a_meal} Mirtazapine Mirtazapine No Mirtazapin 7.5 MG 7.5 MG e 7.5 MG Fosamax 70 Fosamax 70 No 1{table Fosamax 70 MG MG t} MG Vitamin D3 Vitamin D3 No Vitamin D3 Prevagen 10 Prevagen 10 No Prevagen MG MG 10 MG Sertraline Sertraline No Sertraline HCl 100 MG HCl 100 MG HCl 100 MG Vitamin B Vitamin B No Vitamin B Complex Complex Complex Pantoprazol Pantoprazol No Pantoprazo e Sodium 40 e Sodium 40 le Sodium MG MG 40 MG sertraline sertraline No sertraline [place] hydrochlori hydrochlori hydrochlor da de 100 mg de 100 mg [place] 100 mg [facility] tabs tabs tabs [facility] Memantine Memantine No 1{table QD Memantine HCl 10 MG HCl 10 MG t} HCl 10 MG NexIUM 40 NexIUM 40 No 1{capsu QD NexIUM 40 MG MG le} MG Telmisartan Telmisartan No 1{table QD Telmisarta 80 MG 80 MG t} n 80 MG Eye Eye No Eye Vitamins - Vitamins - Vitamins - Levothyroxi Levothyroxi No QD Levothyrox ne Sodium ne Sodium ine Sodium 25 MCG 25 MCG 25 MCG amLODIPine amLODIPine No amLODIPine Besylate 5 Besylate 5 Besylate 5 MG MG MG PriLOSEC 20 PriLOSEC 20 No 1{capsu QD PriLOSEC MG MG le} 20 MG Triamcinolo Triamcinolo No 1{appli BID Triamcinol ne ne cation_ one Acetonide Acetonide to_affe Acetonide 0.1 % 0.1 % cted_ar 0.1 % ea} [place] 3 [place] 3 No [place] 3 Fosamax 70 Fosamax 70 No 1{table Fosamax 70 MG MG t} MG telmisartan telmisartan No telmisarta [place] 80 mg 80 mg n 80 mg da tablet tablet tablet [facility] Zoloft 100 Zoloft 100 No Zoloft 100 MG MG MG Aspirin 81 Aspirin 81 No 1{table QD Aspirin 81 81 MG 81 MG t} 81 MG Pantoprazol Pantoprazol No 1{table QD Pantoprazo e Sodium 40 e Sodium 40 t} le Sodium MG MG 40 MG Mirtazapine Mirtazapine No 1{table QD Mirtazapin 15 MG 15 MG t_at_be e 15 MG dtime} Synthroid Synthroid No Synthroid 25 MCG 25 MCG 25 MCG Alendronate Alendronate No Alendronat Sodium 70 Sodium 70 e Sodium MG MG 70 MG Nystatin Nystatin No 4{ml} QID Nystatin [id number] UNIT/ML UNIT/ML UNIT/ML Meclizine Meclizine No 1{table QD Meclizine HCl 25 MG HCl 25 MG t_as_ne HCl 25 MG eded} Triamcinolo Triamcinolo No 1{appli BID Triamcinol ne ne cation_ one Acetonide Acetonide to_affe Acetonide 0.025 % 0.025 % cted_ar 0.025 % ea} Imitrex 25 Imitrex 25 No 1{table BID Imitrex 25 MG MG t_as_ne MG eded} Cetirizine Cetirizine No 1{table QD Cetirizine HCl 10 MG HCl 10 MG t} HCl 10 MG Famotidine Famotidine No 1{table QD Famotidine 20 MG 20 MG t_at_be 20 MG dtime_a s_neede d} amLODIPine amLODIPine No 1{table amLODIPine Besylate 5 Besylate 5 t} Besylate 5 MG MG MG Magnesium Magnesium No 1{table QD Magnesium 250 MG 250 MG t_with_ 250 MG a_meal} Levothyroxi Levothyroxi No Levothyrox ne Sodium ne Sodium ine Sodium 50 MCG 50 MCG 50 MCG Sertraline Sertraline No Sertraline HCl 100 MG HCl 100 MG HCl 100 MG Pantoprazol Pantoprazol No Pantoprazo e Sodium 40 e Sodium 40 le Sodium MG MG 40 MG Mirtazapine Mirtazapine No 1{table QD Mirtazapin 15 MG 15 MG t_at_be e 15 MG dtime} Atorvastati Atorvastati No 1{table QD Atorvastat n Calcium n Calcium t_at_be in Calcium 20 MG 20 MG dtime} 20 MG Montelukast Montelukast No Montelukas Sodium 10 Sodium 10 t Sodium MG MG 10 MG amLODIPine amLODIPine No 1{table amLODIPine Besylate 5 Besylate 5 t} Besylate 5 MG MG MG Vitamin B Vitamin B No Vitamin B Complex Complex Complex Zoloft 100 Zoloft 100 No Zoloft 100 MG MG MG [place] 3 [place] 3 No [place] 3 Memantine Memantine No 1{table QD Memantine HCl 10 MG HCl 10 MG t} HCl 10 MG Aspirin 81 Aspirin 81 No 1{table QD Aspirin 81 81 MG 81 MG t} 81 MG Alendronate Alendronate No Alendronat Sodium 70 Sodium 70 e Sodium MG MG 70 MG Telmisartan Telmisartan No 1{table QD Telmisarta 80 MG 80 MG t} n 80 MG Memantine Memantine No Memantine HCl 10 MG HCl 10 MG HCl 10 MG Vitamin D3 Vitamin D3 No Vitamin D3 Sertraline Sertraline No Sertraline HCl 100 MG HCl 100 MG HCl 100 MG Magnesium Magnesium No 1{table QD Magnesium 250 MG 250 MG t_with_ 250 MG a_meal} Atorvastati Atorvastati No Atorvastat n Calcium n Calcium in Calcium 20 MG 20 MG 20 MG Zoloft 100 Zoloft 100 No Zoloft 100 MG MG MG Mirtazapine Mirtazapine No Mirtazapin 15 MG 15 MG e 15 MG [place] 3 [place] 3 No [place] 3 Montelukast Montelukast No Montelukas Sodium 10 Sodium 10 t Sodium MG MG 10 MG amLODIPine amLODIPine No 1{table amLODIPine Besylate 5 Besylate 5 t} Besylate 5 MG MG MG Alendronate Alendronate No Alendronat Sodium 70 Sodium 70 e Sodium MG MG 70 MG Vitamin B Vitamin B No Vitamin B Complex Complex Complex Memantine Memantine No Memantine HCl 10 MG HCl 10 MG HCl 10 MG Vitamin D3 Vitamin D3 No Vitamin D3 Pantoprazol Pantoprazol No Pantoprazo e Sodium 40 e Sodium 40 le Sodium MG MG 40 MG Memantine Memantine No 1{table QD Memantine HCl 10 MG HCl 10 MG t} HCl 10 MG Telmisartan Telmisartan No 1{table QD Telmisarta 80 MG 80 MG t} n 80 MG Aspirin 81 Aspirin 81 No 1{table QD Aspirin 81 81 MG 81 MG t} 81 MG Levothyroxi Levothyroxi No Levothyrox ne Sodium ne Sodium ine Sodium 50 MCG 50 MCG 50 MCG Sertraline Sertraline No Sertraline HCl 100 MG HCl 100 MG HCl 100 MG Magnesium Magnesium No 1{table QD Magnesium 250 MG 250 MG t_with_ 250 MG a_meal} Atorvastati Atorvastati No Atorvastat n Calcium n Calcium in Calcium 20 MG 20 MG 20 MG Zoloft 100 Zoloft 100 No Zoloft 100 MG MG MG Mirtazapine Mirtazapine No Mirtazapin 15 MG 15 MG e 15 MG [place] 3 [place] 3 No [place] 3 Montelukast Montelukast No Montelukas Sodium 10 Sodium 10 t Sodium MG MG 10 MG amLODIPine amLODIPine No 1{table amLODIPine Besylate 5 Besylate 5 t} Besylate 5 MG MG MG Alendronate Alendronate No Alendronat Sodium 70 Sodium 70 e Sodium MG MG 70 MG Vitamin B Vitamin B No Vitamin B Complex Complex Complex Memantine Memantine No Memantine HCl 10 MG HCl 10 MG HCl 10 MG Vitamin D3 Vitamin D3 No Vitamin D3 Pantoprazol Pantoprazol No Pantoprazo e Sodium 40 e Sodium 40 le Sodium MG MG 40 MG Memantine Memantine No 1{table QD Memantine HCl 10 MG HCl 10 MG t} HCl 10 MG Telmisartan Telmisartan No 1{table QD Telmisarta 80 MG 80 MG t} n 80 MG Aspirin 81 Aspirin 81 No 1{table QD Aspirin 81 81 MG 81 MG t} 81 MG Levothyroxi Levothyroxi No Levothyrox ne Sodium ne Sodium ine Sodium 50 MCG 50 MCG 50 MCG Pantoprazol Pantoprazol No Pantoprazo e Sodium 40 e Sodium 40 le Sodium MG MG 40 MG Montelukast Montelukast No Montelukas Sodium 10 Sodium 10 t Sodium MG MG 10 MG [place] 3 [place] 3 No [place] 3 Levothyroxi Levothyroxi No Levothyrox ne Sodium ne Sodium ine Sodium 50 MCG 50 MCG 50 MCG Telmisartan Telmisartan No 1{table QD Telmisarta 80 MG 80 MG t} n 80 MG Magnesium Magnesium No 1{table QD Magnesium 250 MG 250 MG t_with_ 250 MG a_meal} Atorvastati Atorvastati No Atorvastat n Calcium n Calcium in Calcium 20 MG 20 MG 20 MG Sertraline Sertraline No Sertraline HCl 100 MG HCl 100 MG HCl 100 MG amLODIPine amLODIPine No 1{table amLODIPine Besylate 5 Besylate 5 t} Besylate 5 MG MG MG Mirtazapine Mirtazapine No Mirtazapin 15 MG 15 MG e 15 MG Alendronate Alendronate No Alendronat Sodium 70 Sodium 70 e Sodium MG MG 70 MG Vitamin D3 Vitamin D3 No Vitamin D3 Memantine Memantine No Memantine HCl 10 MG HCl 10 MG HCl 10 MG Aspirin 81 Aspirin 81 No 1{table QD Aspirin 81 81 MG 81 MG t} 81 MG Vitamin B Vitamin B No Vitamin B Complex Complex Complex Zoloft 100 Zoloft 100 No Zoloft 100 MG MG MG Mirtazapine Mirtazapine No 1{table QD Mirtazapin 15 MG 15 MG t_at_be e 15 MG dtime} amLODIPine amLODIPine No 1{table amLODIPine Besylate 5 Besylate 5 t} Besylate 5 MG MG MG [place] 3 [place] 3 No [place] 3 Memantine Memantine No Memantine HCl 10 MG HCl 10 MG HCl 10 MG Memantine Memantine No 1{table QD Memantine HCl 10 MG HCl 10 MG t} HCl 10 MG Atorvastati Atorvastati No Atorvastat n Calcium n Calcium in Calcium 20 MG 20 MG 20 MG Magnesium Magnesium No 1{table QD Magnesium 250 MG 250 MG t_with_ 250 MG a_meal} Alendronate Alendronate No Alendronat Sodium 70 Sodium 70 e Sodium MG MG 70 MG Vitamin B Vitamin B No Vitamin B Complex Complex Complex Aspirin 81 Aspirin 81 No 1{table QD Aspirin 81 81 MG 81 MG t} 81 MG Calcium Calcium No Calcium Vitamin D3 Vitamin D3 No Vitamin D3 Telmisartan Telmisartan No 1{table QD Telmisarta 80 MG 80 MG t} n 80 MG Mirtazapine Mirtazapine No Mirtazapin 15 MG 15 MG e 15 MG Sertraline Sertraline No 1{table QD Sertraline HCl 100 MG HCl 100 MG t} HCl 100 MG Atorvastati Atorvastati No 1{table QD Atorvastat n Calcium n Calcium t_at_be in Calcium 20 MG 20 MG dtime} 20 MG Levothyroxi Levothyroxi No Levothyrox ne Sodium ne Sodium ine Sodium 50 MCG 50 MCG 50 MCG Pantoprazol Pantoprazol No Pantoprazo e Sodium 40 e Sodium 40 le Sodium MG MG 40 MG Montelukast Montelukast No 1{table QD Montelukas Sodium 10 Sodium 10 t} t Sodium MG MG 10 MG Mirtazapine Mirtazapine No 1{table QD Mirtazapin 15 MG 15 MG t_at_be e 15 MG dtime} Sertraline Sertraline No 1{table QD Sertraline HCl 100 MG HCl 100 MG t} HCl 100 MG Montelukast Montelukast No 1{table QD Montelukas Sodium 10 Sodium 10 t} t Sodium MG MG 10 MG Aspirin 81 Aspirin 81 No 1{table QD Aspirin 81 81 MG 81 MG t} 81 MG Magnesium Magnesium No 1{table QD Magnesium 250 MG 250 MG t_with_ 250 MG a_meal} Memantine Memantine No 1{table QD Memantine HCl 10 MG HCl 10 MG t} HCl 10 MG Zoloft 100 Zoloft 100 No Zoloft 100 MG MG MG Pantoprazol Pantoprazol No Pantoprazo e Sodium 40 e Sodium 40 le Sodium MG MG 40 MG Atorvastati Atorvastati No Atorvastat n Calcium n Calcium in Calcium 20 MG 20 MG 20 MG Mirtazapine Mirtazapine No Mirtazapin 15 MG 15 MG e 15 MG Telmisartan Telmisartan No 1{table QD Telmisarta 80 MG 80 MG t} n 80 MG Vitamin D3 Vitamin D3 No Vitamin D3 amLODIPine amLODIPine No 1{table amLODIPine Besylate 5 Besylate 5 t} Besylate 5 MG MG MG Levothyroxi Levothyroxi No Levothyrox ne Sodium ne Sodium ine Sodium 50 MCG 50 MCG 50 MCG [place] 3 [place] 3 No [place] 3 Memantine Memantine No Memantine HCl 10 MG HCl 10 MG HCl 10 MG Vitamin B Vitamin B No Vitamin B Complex Complex Complex Alendronate Alendronate No Alendronat Sodium 70 Sodium 70 e Sodium MG MG 70 MG Atorvastati Atorvastati No 1{table QD Atorvastat n Calcium n Calcium t_at_be in Calcium 20 MG 20 MG dtime} 20 MG Calcium Calcium No Calcium Mirtazapine Mirtazapine No 1{table QD Mirtazapin 15 MG 15 MG t_at_be e 15 MG dtime} Sertraline Sertraline No 1{table QD Sertraline HCl 100 MG HCl 100 MG t} HCl 100 MG Montelukast Montelukast No 1{table QD Montelukas Sodium 10 Sodium 10 t} t Sodium MG MG 10 MG Aspirin 81 Aspirin 81 No 1{table QD Aspirin 81 81 MG 81 MG t} 81 MG Magnesium Magnesium No 1{table QD Magnesium 250 MG 250 MG t_with_ 250 MG a_meal} Vitamin D3 Vitamin D3 No Vitamin D3 Zoloft 100 Zoloft 100 No Zoloft 100 MG MG MG Atorvastati Atorvastati No Atorvastat n Calcium n Calcium in Calcium 20 MG 20 MG 20 MG Memantine Memantine No 1{table QD Memantine HCl 10 MG HCl 10 MG t} HCl 10 MG Pantoprazol Pantoprazol No Pantoprazo e Sodium 40 e Sodium 40 le Sodium MG MG 40 MG Telmisartan Telmisartan No 1{table QD Telmisarta 80 MG 80 MG t} n 80 MG Atorvastati Atorvastati No 1{table QD Atorvastat n Calcium n Calcium t_at_be in Calcium 20 MG 20 MG dtime} 20 MG amLODIPine amLODIPine No 1{table amLODIPine Besylate 5 Besylate 5 t} Besylate 5 MG MG MG Levothyroxi Levothyroxi No Levothyrox ne Sodium ne Sodium ine Sodium 50 MCG 50 MCG 50 MCG Alendronate Alendronate No QD Alendronat Sodium 70 Sodium 70 e Sodium MG MG 70 MG Memantine Memantine No Memantine HCl 10 MG HCl 10 MG HCl 10 MG Vitamin B Vitamin B No Vitamin B Complex Complex Complex Mirtazapine Mirtazapine No Mirtazapin 15 MG 15 MG e 15 MG [place] 3 [place] 3 No [place] 3 Calcium Calcium No Calcium Magnesium Magnesium No 1{table QD Magnesium 250 MG 250 MG t_with_ 250 MG a_meal} Mirtazapine Mirtazapine No 1{table QD Mirtazapin 15 MG 15 MG t_at_be e 15 MG dtime} Zoloft 100 Zoloft 100 No Zoloft 100 MG MG MG Montelukast Montelukast No 1{table QD Montelukas Sodium 10 Sodium 10 t} t Sodium MG MG 10 MG Vitamin D3 Vitamin D3 No Vitamin D3 Vitamin B Vitamin B No Vitamin B Complex Complex Complex Atorvastati Atorvastati No Atorvastat n Calcium n Calcium in Calcium 20 MG 20 MG 20 MG Memantine Memantine No 1{table QD Memantine HCl 10 MG HCl 10 MG t} HCl 10 MG Pantoprazol Pantoprazol No Pantoprazo e Sodium 40 e Sodium 40 le Sodium MG MG 40 MG Memantine Memantine No Memantine HCl 10 MG HCl 10 MG HCl 10 MG Telmisartan Telmisartan No 1{table QD Telmisarta 80 MG 80 MG t} n 80 MG Atorvastati Atorvastati No 1{table QD Atorvastat n Calcium n Calcium t_at_be in Calcium 20 MG 20 MG dtime} 20 MG Calcium Calcium No Calcium Levothyroxi Levothyroxi No Levothyrox ne Sodium ne Sodium ine Sodium 50 MCG 50 MCG 50 MCG Aspirin 81 Aspirin 81 No 1{table QD Aspirin 81 81 MG 81 MG t} 81 MG amLODIPine amLODIPine No 1{table amLODIPine Besylate 5 Besylate 5 t} Besylate 5 MG MG MG Alendronate Alendronate No Alendronat Sodium 70 Sodium 70 e Sodium MG MG 70 MG Mirtazapine Mirtazapine No Mirtazapin 15 MG 15 MG e 15 MG [place] 3 [place] 3 No [place] 3 Sertraline Sertraline No 1{table QD Sertraline HCl 100 MG HCl 100 MG t} HCl 100 MG Mirtazapine Mirtazapine No 1{table QD Mirtazapin 15 MG 15 MG t_at_be e 15 MG dtime} Calcium Calcium No Calcium Zoloft 100 Zoloft 100 No Zoloft 100 MG MG MG Sertraline Sertraline No 1{table QD Sertraline HCl 100 MG HCl 100 MG t} HCl 100 MG Magnesium Magnesium No 1{table QD Magnesium 250 MG 250 MG t_with_ 250 MG a_meal} Memantine Memantine No 1{table QD Memantine HCl 10 MG HCl 10 MG t} HCl 10 MG Vitamin B Vitamin B No Vitamin B Complex Complex Complex Pantoprazol Pantoprazol No Pantoprazo e Sodium 40 e Sodium 40 le Sodium MG MG 40 MG Atorvastati Atorvastati No Atorvastat n Calcium n Calcium in Calcium 20 MG 20 MG 20 MG Mirtazapine Mirtazapine No Mirtazapin 15 MG 15 MG e 15 MG Aspirin 81 Aspirin 81 No 1{table QD Aspirin 81 81 MG 81 MG t} 81 MG Vitamin D3 Vitamin D3 No Vitamin D3 Memantine Memantine No Memantine HCl 10 MG HCl 10 MG HCl 10 MG Levothyroxi Levothyroxi No Levothyrox ne Sodium ne Sodium ine Sodium 50 MCG 50 MCG 50 MCG [place] 3 [place] 3 No [place] 3 Telmisartan Telmisartan No 1{table QD Telmisarta 80 MG 80 MG t} n 80 MG Alendronate Alendronate No Alendronat Sodium 70 Sodium 70 e Sodium MG MG 70 MG Montelukast Montelukast No 1{table QD Montelukas Sodium 10 Sodium 10 t} t Sodium MG MG 10 MG Atorvastati Atorvastati No 1{table QD Atorvastat n Calcium n Calcium t_at_be in Calcium 20 MG 20 MG dtime} 20 MG amLODIPine amLODIPine No 1{table amLODIPine Besylate 5 Besylate 5 t} Besylate 5 MG MG MG Mirtazapine Mirtazapine No 1{table QD Mirtazapin 15 MG 15 MG t_at_be e 15 MG dtime} Calcium Calcium No Calcium Zoloft 100 Zoloft 100 No Zoloft 100 MG MG MG Sertraline Sertraline No 1{table QD Sertraline HCl 100 MG HCl 100 MG t} HCl 100 MG Magnesium Magnesium No 1{table QD Magnesium 250 MG 250 MG t_with_ 250 MG a_meal} Memantine Memantine No 1{table QD Memantine HCl 10 MG HCl 10 MG t} HCl 10 MG Vitamin B Vitamin B No Vitamin B Complex Complex Complex Pantoprazol Pantoprazol No Pantoprazo e Sodium 40 e Sodium 40 le Sodium MG MG 40 MG Atorvastati Atorvastati No Atorvastat n Calcium n Calcium in Calcium 20 MG 20 MG 20 MG Mirtazapine Mirtazapine No Mirtazapin 15 MG 15 MG e 15 MG Aspirin 81 Aspirin 81 No 1{table QD Aspirin 81 81 MG 81 MG t} 81 MG Vitamin D3 Vitamin D3 No Vitamin D3 Memantine Memantine No Memantine HCl 10 MG HCl 10 MG HCl 10 MG Levothyroxi Levothyroxi No Levothyrox ne Sodium ne Sodium ine Sodium 50 MCG 50 MCG 50 MCG [place] 3 [place] 3 No [place] 3 Telmisartan Telmisartan No 1{table QD Telmisarta 80 MG 80 MG t} n 80 MG Alendronate Alendronate No Alendronat Sodium 70 Sodium 70 e Sodium MG MG 70 MG Montelukast Montelukast No 1{table QD Montelukas Sodium 10 Sodium 10 t} t Sodium MG MG 10 MG Atorvastati Atorvastati No 1{table QD Atorvastat n Calcium n Calcium t_at_be in Calcium 20 MG 20 MG dtime} 20 MG amLODIPine amLODIPine No 1{table amLODIPine Besylate 5 Besylate 5 t} Besylate 5 MG MG MG Sertraline Sertraline No Sertraline HCl 100 MG HCl 100 MG HCl 100 MG Magnesium Magnesium No 1{table QD Magnesium 250 MG 250 MG t_with_ 250 MG a_meal} Atorvastati Atorvastati No Atorvastat n Calcium n Calcium in Calcium 20 MG 20 MG 20 MG Zoloft 100 Zoloft 100 No Zoloft 100 MG MG MG Mirtazapine Mirtazapine No Mirtazapin 15 MG 15 MG e 15 MG [place] 3 [place] 3 No [place] 3 Montelukast Montelukast No Montelukas Sodium 10 Sodium 10 t Sodium MG MG 10 MG amLODIPine amLODIPine No 1{table amLODIPine Besylate 5 Besylate 5 t} Besylate 5 MG MG MG Alendronate Alendronate No Alendronat Sodium 70 Sodium 70 e Sodium MG MG 70 MG Vitamin B Vitamin B No Vitamin B Complex Complex Complex Memantine Memantine No Memantine HCl 10 MG HCl 10 MG HCl 10 MG Vitamin D3 Vitamin D3 No Vitamin D3 Pantoprazol Pantoprazol No Pantoprazo e Sodium 40 e Sodium 40 le Sodium MG MG 40 MG Memantine Memantine No 1{table QD Memantine HCl 10 MG HCl 10 MG t} HCl 10 MG Telmisartan Telmisartan No 1{table QD Telmisarta 80 MG 80 MG t} n 80 MG Aspirin 81 Aspirin 81 No 1{table QD Aspirin 81 81 MG 81 MG t} 81 MG Levothyroxi Levothyroxi No Levothyrox ne Sodium ne Sodium ine Sodium 50 MCG 50 MCG 50 MCG Sertraline Sertraline No Sertraline HCl 100 MG HCl 100 MG HCl 100 MG Magnesium Magnesium No 1{table QD Magnesium 250 MG 250 MG t_with_ 250 MG a_meal} Immunizations Ordered Immunization Filled Immunization Date Status Commen ts Source Name Name PNEUMAVAX 23 PNEUMAVAX 23 2019-06-21 Completed [facility] 13:[facility]:00 [facility] PNEUMAVAX 23 PNEUMAVAX 23 2019-06-21 Completed [facility] 13:41:00 - [facility] PNEUMAVAX 23 PNEUMAVAX 23 2019-06-21 Completed [facility] 13:41:00 [facility] PNEUMAVAX 23 PNEUMAVAX 23 2019-06-21 Completed [facility] 13:41:00 - [facility] PNEUMAVAX 23 PNEUMAVAX 23 2019-06-21 Completed [facility] 13:41:00 - [facility] PNEUMAVAX 23 PNEUMAVAX 23 2019-06-21 Completed [facility] 13:41:00 [facility] PNEUMAVAX 23 PNEUMAVAX 23 2019-06-21 Completed [facility] 13:41:00 [facility] PNEUMAVAX 23 PNEUMAVAX 23 2019-06-21 Completed [facility] 13:41:00 - [facility] PNEUMAVAX 23 PNEUMAVAX 23 2019-06-21 Completed [facility] 13:41:00 - [facility] PNEUMAVAX 23 PNEUMAVAX 23 2019-06-21 Completed [facility] 13:41:00 [facility] PNEUMAVAX 23 PNEUMAVAX 23 2019-06-21 Completed [facility] 13:41:00 - [facility] PNEUMAVAX 23 PNEUMAVAX 23 2019-06-21 Completed [facility] 13:41:00 [facility] PNEUMAVAX 23 PNEUMAVAX 23 2019-06-21 Completed [facility] 13:41:00 [facility] PNEUMAVAX 23 PNEUMAVAX 23 2019-06-21 Completed [facility] 13:41:00 [facility] PNEUMAVAX 23 PNEUMAVAX 23 2019-06-21 Completed [facility] 13:41:00 [facility] PNEUMAVAX 23 PNEUMAVAX 23 2019-06-21 Completed [facility] 13:41:00 [facility] PNEUMAVAX 23 PNEUMAVAX 23 2019-06-21 Completed [facility] 13:41:00 [facility] PNEUMAVAX 23 PNEUMAVAX 23 2019-06-21 Completed [facility] 13:41:00 [facility] PNEUMAVAX 23 PNEUMAVAX 23 2019-06-21 Completed [facility] 13:41:00 [facility] PNEUMAVAX 23 PNEUMAVAX 23 2019-06-21 Completed [facility] 00:00:00 [facility] Prevnar 13 Prevnar 13 2018-06-09 Completed [facility]Pneumonia Vaccine -Pneumonia Vaccine 10:52:00 [facility] Prevnar 13 Prevnar 13 2018-06-09 Completed [facility] Vaccine -Pneumonia Vaccine 10:52:00 [facility] Prevnar 13 Prevnar 13 2018-06-09 Completed [facility] -Pneumonia Vaccine -Pneumonia Vaccine 10:52:00 [facility] Prevnar 13 Prevnar 13 2018-06-09 Completed [facility]Pneumonia Vaccine -Pneumonia Vaccine 10:52:00 [facility] Prevnar 13 Prevnar 13 2018-06-09 Completed [facility]neumonia Vaccine -Pneumonia Vaccine 10:52:00 - [facility] Prevnar 13 Prevnar 13 2018-06-09 Completed [facility]Pneumonia Vaccine -Pneumonia Vaccine 10:52:00 [facility] Prevnar 13 Prevnar 13 2018-06-09 Completed [facility] -Pneumonia Vaccine -Pneumonia Vaccine 10:52:00 [facility] Prevnar 13 Prevnar 13 2018-06-09 Completed [facility]Pneumonia Vaccine -Pneumonia Vaccine 10:52:00 [facility] Prevnar 13 Prevnar 13 2018-06-09 Completed [facility] -Pneumonia Vaccine -Pneumonia Vaccine 10:52:00 [facility] Prevnar 13 Prevnar 13 2018-06-09 Completed [facility] -Pneumonia Vaccine -Pneumonia Vaccine 10:52:00 [facility] Prevnar 13 Prevnar 13 2018-06-09 Completed [facility] -Pneumonia Vaccine -Pneumonia Vaccine 10:52:00 [facility] Prevnar 13 Prevnar 13 2018-06-09 Completed [facility]Pneumonia Vaccine -Pneumonia Vaccine 10:52:00 [facility] Prevnar 13 Prevnar 13 2018-06-09 Completed [facility]Pneumonia Vaccine -Pneumonia Vaccine 10:52:00 [facility] Prevnar 13 Prevnar 13 2018-06-09 Completed [facility] -Pneumonia Vaccine -Pneumonia Vaccine 10:52:00 [facility] Prevnar 13 Prevnar 2018-06-09 Completed [facility]Pneumonia Vaccine -Pneumonia Vaccine 10:52:00 [facility] Prevnar 13 Prevnar 2018-06-09 Completed [facility]Pneumonia Vaccine -Pneumonia Vaccine 10:52:00 [facility] Prevnar 13 Prevnar 2018-06-09 Completed [facility]Pneumonia Vaccine -Pneumonia Vaccine 10:52:00 [facility] Prevnar 13 Prevnar 13 2018-06-09 Completed [facility]Pneumonia Vaccine -Pneumonia Vaccine 10:52:00 [facility] Prevnar 13 Prevnar 2018-06-09 Completed [facility]Pneumonia Vaccine -Pneumonia Vaccine 10:52:00 [facility] Prevnar 13 Prevnar 2018-06-09 Completed [facility]Pneumonia Vaccine -Pneumonia Vaccine 00:00:00 [facility] Vital Signs Vital Name Observation Time Observation Value Comments Source height 2022-11-04 12:40:00 60.5 [in_i] [facility] weight 2022-11-04 12:40:00 144 [lb_av] [facility] bmi 2022-11-04 12:40:00 27.66 kg/m2 [facility] height 2022-09-29 13:20:00 60.5 [in_i] [facility] weight 2022-09-29 13:20:00 144 [lb_av] [facility] temperature 2022-09-29 13:20:00 97.6 [degF] [facility] bmi 2022-09-29 13:20:00 27.66 kg/m2 [facility] oximetry 2022-09-29 13:20:00 96 % [facility] respiratory rate 2022-09-29 13:20:00 22 /min Comm on [facility] blood pressure 2022-09-29 13:20:00 168 mm[Hg] [facility] - systolic [facility] blood pressure 2022-09-29 13:20:00 72 mm[Hg] [facility] - diastolic [facility] height 2022-08-24 11:00:00 60.5 [in_i] [facility] weight 2022-08-24 11:00:00 145.4 [lb_av] Common [facility] temperature 2022-08-24 11:00:00 97.6 [degF] [facility] S pirit [facility] bmi 2022-08-24 11:00:00 27.93 kg/m2 [facility] oximetry 2022-08-24 11:00:00 96 % Common S [facility] respiratory rate 2022-08-24 11:00:00 16 /min Comm on [facility] blood pressure 2022-08-24 11:00:00 130 mm[Hg] [facility] - systolic [facility] blood pressure 2022-08-24 11:00:00 72 mm[Hg] [facility] - diastolic [facility] height 2022-05-29 13:20:00 60.5 [in_i] [facility]irit [facility] weight 2022-05-29 13:20:00 146 [lb_av] [facility]irit [facility] temperature 2022-05-29 13:20:00 97.3 [degF] [facility] - [facility] bmi 2022-05-29 13:20:00 28.04 kg/m2 [facility] oximetry 2022-05-29 13:20:00 97 % [facility] 2022-05-29 13:20:00 16 /min Comm on [facility] blood pressure 2022-05-29 13:20:00 145 mm[Hg] [facility] - systolic [facility] blood pressure 2022-05-29 13:20:00 65 mm[Hg] [facility] - diastolic [facility] height 2022-02-26 13:00:00 67.00 [in_i] [facility] S pirit [facility] weight 2022-02-26 13:00:00 142.2 [lb_av] Common [facility] temperature 2022-02-26 13:00:00 97.5 [degF] Common S pirit [facility] bmi 2022-02-26 13:00:00 22.27 kg/m2 Common S pirit [facility] oximetry 2022-02-26 13:00:00 99 % [facility] respiratory rate 2022-02-26 13:00:00 18 /min Comm on [facility] blood pressure 2022-02-26 13:00:00 138 mm[Hg] [facility] - [facility] blood pressure 2022-02-26 13:00:00 76 mm[Hg] Common [facility] - diastolic [facility] height 2022-02-26 13:00:00 67.00 [in_i] Common S pirit [facility] weight 2022-02-26 13:00:00 142.2 [lb_av] [facility] temperature 2022-02-26 13:00:00 97.5 [degF] Common S pirit [facility] bmi 2022-02-26 13:00:00 22.27 kg/m2 [facility]irit [facility] oximetry 2022-02-26 13:00:00 99 % [facility] S pirit [facility] respiratory rate 2022-02-26 13:00:00 18 /min Comm on [facility] blood pressure 2022-02-26 13:00:00 138 mm[Hg] [facility] - systolic [facility] blood pressure 2022-02-26 13:00:00 76 mm[Hg] [facility] - diastolic [facility] height 2021-11-28 13:20:00 67.00 [in_i] [facility]irit [facility] weight 2021-11-28 13:20:00 140 [lb_av] [facility] bmi 2021-11-28 13:20:00 21.92 kg/m2 [facility] height 2021-09-30 11:20:00 67.00 [in_i] [facility] weight 2021-09-30 11:20:00 141 [lb_av] [facility] temperature 2021-09-30 11:20:00 97.7 [degF] [facility]irit [facility] bmi 2021-09-30 11:20:00 22.08 kg/m2 [facility] oximetry 2021-09-30 11:20:00 96 % [facility] respiratory rate 2021-09-30 11:20:00 16 /min Comm on [facility] blood pressure 2021-09-30 11:20:00 139 mm[Hg] Common [facility] - systolic [facility] blood pressure 2021-09-30 11:20:00 78 mm[Hg] [facility] - diastolic [facility] height 2021-08-28 16:20:00 67.00 [in_i] Common [facility] weight 2021-08-28 16:20:00 137.8 [lb_av] [facility] temperature 2021-08-28 16:20:00 97.2 [degF] Common S pirit [facility] bmi 2021-08-28 16:20:00 21.58 kg/m2 [facility] oximetry 2021-08-28 16:20:00 98 % Common S [facility] respiratory rate 2021-08-28 16:20:00 18 /min Comm on [facility] blood pressure 2021-08-28 16:20:00 173 mm[Hg] [facility] - systolic [facility] blood pressure 2021-08-28 16:20:00 77 mm[Hg] [facility] - diastolic [facility] Height 2020-04-16 00:00:00 62 [in_i] [place] [facility] BMI (Body Mass 2020-04-16 00:00:00 23.8 kg/m2 [place] [employer] Index) [facility] Body Weight 2020-04-16 00:00:00 130 [lb_av] [place] [facility] Procedures Procedure Date / Time Performing Clinician Source Performed Cataract Surgery 2012-11-15 00:00:00 [facility] Total Hysterectomy 1971-11-15 00:00:00 [facility] Bilateral Extraction of [place] [facility] Amputation of Toe [facility] Appendectomy [facility] Hysterectomy/bladder [facility] Encounters Start End Encounter Admission Attending Care Care Encounter Source Date/Time Date/Time Type Type Clinicians Facility Department ID 2022-12-30 Outpatient Karena, STLMLC STLC [id number] Common 14:09:00 Joelle [id number] [facility] 2022-12-09 Outpatient Karena, STLMLC STLC [id number] Common 16:17:00 Joelle [id number] [facility] 2022-11-02 Outpatient Bravo, Na STLMLC STLC [id number] 2 Common 08:26:01 [facility] 2022-10-27 Outpatient Bravo, Na STLMLC STLMLC [id number] 2 Common 08:55:00 [facility] 2022-09-28 Outpatient Bravo, Na STLMLC STLMLC [id number] 2 Common 08:37:00 [facility] 2022-05-27 Outpatient Bravo, Na STLMLC STLMLC [id number] 2 Common 10:11:00 [facility] 2022-02-26 Outpatient Bravo, Na STLMLC STLMLC [id number] 2 Common 12:45:01 [facility] 2022-02-24 Outpatient Bravo, Na STLMLC STLMLC [id number] 2 Common 10:58:00 [facility] 2021-12-10 Outpatient Bravo, Na STLMLC STLMLC [id number] 2 Common 14:34:32 [facility] 2021-12-10 Outpatient Bravo, Na STLMLC STLMLC [id number] 2 Common 13:59:40 [id number] [facility] 2021-12-10 Outpatient Bravo, Na STLMLC STLMLC [id number] 2 Common 13:53:56 [id number] [facility] 2021-12-10 Outpatient Bravo, Na STLMLC STLMLC [id number] 2 Common 13:12:37 [id number] [facility] 2021-12-10 Outpatient Bravo, Na STLMLC STLMLC [id number] 2 Common 12:31:14 [id number] [facility] 2021-12-10 Outpatient Bravo, Na STLMLC STLMLC [id number] 2 Common 12:29:20 [id number] [facility] 2021-12-10 Outpatient Bravo, Na STLMLC STLMLC [id number] 2 Common 12:28:09 [id number] [facility] 2021-12-10 Outpatient Bravo, Na STLMLC STLMLC [id number] 2 Common 12:25:52 [id number] [facility] 2021-12-10 Outpatient Bravo, Na STLMLC STLMLC [id number] 2 Common 12:04:39 [id number] [facility] 2021-12-10 Outpatient Bravo, Na STLMLC STLMLC [id number] 2 Common 12:04:05 [id number] [facility] 2021-12-10 Outpatient Bravo, Na STLMLC STLMLC [id number] 2 Common 11:34:08 [id number] [facility] 2021-12-10 Outpatient Bravo, Na STLMLC STLMLC [id number] 2 Common 11:33:36 [id number] [facility] 2021-12-10 Outpatient Jessica Bravo STLMLC STLMLC [id number] 2 Common 11:10:17 [id number] [facility] 2023-06-21 2023-06-21 Outpatient GC_BAHC_Tod PRIV PRIV [id number] [facility] 00:00:00 00:00:00 d_J [id number] [facility] 2023-06-21 2023-06-21 Outpatient GC_BAHC_Tod PRIV PRIV [id number] [facility] 00:00:00 00:00:00 d_J [id number] Medica l 2023-06-18 2023-06-18 Outpatient GC_BAHC_Tod PRIV PRIV [id number] [facility] 00:00:00 00:00:00 d_J [id number] Medica l 2023-06-17 2023-06-17 Outpatient GC_BAHC_Tod PRIV PRIV [id number] [facility] 00:00:00 00:00:00 d_J [id number] [facility] 2023-06-16 2023-06-16 Outpatient GC_BAHC_Tod PRIV PRIV [id number] [facility] 00:00:00 00:00:00 d_J [id number] Medica l 2023-06-09 2023-06-09 Emergency ER [facility] [id number] [place] 13:39:00 17:30:00 KENNETH [id number] [facility] 2022-12-09 2022-12-09 (TEL) STLMLC STLMLC [id number] Co mmon 00:00:00 00:00:00 [facility] 2022-12-04 2022-12-04 (TEL) STLMLC STLMLC [id number] [facility] 00:00:00 00:00:00 [facility] 2022-12-04 2022-12-04 (TEL) STLMLC STLMLC [id number] [facility] 00:00:00 00:00:00 [facility] 2022-12-01 2022-12-01 (TEL) STLMLC STLMLC [id number] [facility] m[facility] 00:00:00 00:00:00 [facility] 2022-11-04 2022-11-04 OFFICE STLMLC STLMLC [id number] Co mmon 00:00:00 00:00:00 VISIT EST Spir it PT LEVEL 3 - [facility] 2022-09-29 2022-09-29 OFFICE STLMLC STLMLC [id number] [facility] m[facility] 00:00:00 00:00:00 VISIT Spirit ESTAB PT - CHI LEVEL 4 [facility] 2022-08-24 2022-08-24 OFFICE STLMLC STLMLC [id number] [facility] m[facility] 00:00:00 00:00:00 VISIT EST Spir it PT LEVEL 3 - [facility] 2022-08-20 2022-08-20 (TEL) STLMLC STLMLC [id number] [facility] 00:00:00 00:00:00 [facility] 2022-07-30 2022-07-30 (TEL) STLMLC STLMLC [id number] [facility] 00:00:00 00:00:00 [facility] - [facility] 2022-05-29 2022-05-29 OFFICE STLMLC STLMLC [id number] Co m[facility] 00:00:00 00:00:00 VISIT [facility] PT - CHI LEVEL 4 [facility] 2022-03-10 2022-03-10 Outpatient METCALF_PRI MEHOP MEHOP [id number] [place] 10:33:00 10:33:00 SCILLA [id number] [facility] 2022-03-02 2022-03-02 (TEL) STLMLC STLMLC [id number] Co m[facility] 00:00:00 00:00:00 [facility] 2022-02-26 2022-02-26 SUB ANNUAL STLMLC STLMLC [id number] Common 00:00:00 00:00:00 MCR [facility] WELLNESS - CHI VISIT [facility] 2022-02-26 2022-02-26 OFFICE STLMLC STLMLC [id number] Co mmon 00:00:00 00:00:00 VISIT EST Spir it PT LEVEL 3 - [facility] 2022-02-10 2022-02-10 Outpatient [facility]F_PRI [facility] [id number] [place] 05:25:00 05:25:00 SCILLOsvaldo [id number] [facility] 2022-02-10 2022-02-10 [place] - [id number] [place] 00:00:00 00:00:00 Zachary Aguilera MD: [address], [facility] [place] [place] [facility] [id number] Outre ac , Ph. h (979) Program 2021-11-28 2021-11-28 OFFICE STLMLC STLMLC [id number] Co mmon 00:00:00 00:00:00 VISIT [facility] ESTAB PT - CHI LEVEL 4 [facility] 2021-09-30 2021-09-30 OFFICE STLMLC STLMLC [id number] Co mmon 00:00:00 00:00:00 VISIT EST Spir it PT LEVEL 3 - [facility] 2021-09-29 2021-09-29 (TEL) STLMLC STLMLC [id number] Co mmon 00:00:00 00:00:00 [facility] 2021-08-28 2021-08-28 OFFICE STLMLC STLMLC [id number] Co mmon 00:00:00 00:00:00 VISIT [facility] ESTAB PT - CHI LEVEL 4 [facility] 2021-04-25 2021-04-25 Outpatient STLMLC STLMLC [id number] Common 00:00:00 00:00:00 [facility] 2020-12-20 2020-12-20 Outpatient STLMLC STLMLC [id number] Common 00:00:00 00:00:00 [facility] 2020-12-20 2020-12-20 Outpatient STLMLC STLMLC [id number] Common 00:00:00 00:00:00 [facility] 2020-12-10 2020-12-10 Outpatient STLMLC STLMLC [id number] Common 00:00:00 00:00:00 [facility] 2020-12-09 2020-12-09 Outpatient STLMLC STLMLC [id number] Common 00:00:00 00:00:00 [facility] 2020-10-24 2020-10-24 Outpatient STLMLC STLMLC [id number] Common 00:00:00 00:00:00 [facility] 2020-09-27 2020-09-27 Outpatient STLMLC STLMLC [id number] Common 00:00:00 00:00:00 [facility] 2020-06-14 2020-06-14 [facility] [id number] Common 16:20:00 16:20:[address] [facility] 2020-05-20 2020-05-20 [facility] [id number] Common 10:51:00 10:51:[address] [facility] 2020-04-22 2020-04-22 [facility] [id number] Common 13:40:00 13:40:[address] [facility] 2020-04-18 2020-04-18 [facility] [id number] Common 15:59:00 15:59:[address] [facility] 2020-04-16 2020-04-16 Outpatient [facility] [id number] [place] 12:47:00 12:47:00 SCILLA [id number] [facility] 2020-04-16 2020-04-16 [facility] [place] - [id number] [place] 00:00:00 00:00:00 Zachary Aguilera MD: [address] [facility] [place], [place] [facility] [address] [facility] ac , Ph. h (979) Program 2020-04-15 2020-04-15 Outpatient [facility] [id number] [place] 12:52:00 12:52:00 SCILLA [id number] [facility] 2020-03-02 2020-03-02 Outpatient [facility] [id number] [place] 10:44:00 10:44:00 SCILLA [id number] [facility] 2020-02-28 2020-02-28 [facility] [id number] Common 15:34:00 15:34:[address] Family - [facility] 2020-02-27 2020-02-27 [facility] [id number] Common 14:00:00 14:00:[address] [facility] 2020-02-23 2020-02-23 [facility] [id number] Common 10:43:00 10:43:[address] [facility] 2019-12-27 2019-12-27 [facility] [id number] Common 10:32:00 10:32:[address] Family [facility] 2019-10-19 2019-10-19 [facility] [id number] Common 15:09:00 15:09:[address] [facility] 2019-10-11 2019-10-11 [facility] [id number] Common 16:47:00 16:47:[address] Family - [facility] 2019-10-11 2019-10-11 [facility] [id number] Common 16:05:00 16:05:[address] [facility] 2019-10-11 2019-10-11 [facility] [id number] Common 12:20:00 12:20:[address] [facility] [address] [facility] 2019-09-22 2019-09-22 Out[facility] [id number] Common 10:53:00 10:53:[address] [facility] 2019-09-19 2019-09-19 [facility] [id number] Common 12:04:00 12:04:00 [facility] 2019-08-17 2019-08-17 [facility] [id number] Common 15:13:00 15:13:[address] [facility] 2019-07-24 2019-07-24 [facility] [id number] Common 16:43:00 16:43:[address] [facility] 2019-06-21 2019-06-21 [facility] [id number] Common 10:20:00 10:20:[address] [facility] 2019-05-19 2019-05-19 [facility] [id number] Common 16:00:00 16:00:[address] [facility] 2019-03-27 2019-03-27 [facility] [id number] Common 15:53:00 15:53:[address] [facility] 2019-03-27 2019-03-27 [facility] [id number] Common 08:58:00 08:58:[address] [facility] 2019-02-24 2019-02-24 [facility] [id number] Common 10:00:00 10:00:[address] [facility] 2019-02-17 2019-02-17 [facility] [id number] Common 10:57:00 10:57:[address] [facility] 2018-12-28 2018-12-28 [facility] [id number] Common 10:00:00 10:00:[address] [facility] 2018-11-16 2018-11-16 [facility] [id number] Common 13:25:00 13:25:[address] [facility] 2018-06-09 2018-06-09 [facility] [id number] Common 09:45:00 09:45:[address] [facility] 2018-05-19 2018-05-19 [facility] [id number] Common 11:00:00 11:00:[address] [facility] 2018-03-03 2018-03-03 [facility] [id number] Common 13:33:00 13:33:[address] [facility] 2018-02-01 2018-02-01 [facility] [id number] Common 09:15:00 09:15:[address] [facility] 2016-07-21 2016-07-21 Outpatient MHIE MHIE [id number] 365 [facility] 10:00:00 10:00:00 01 chavez Velasquez 2016-07-21 2016-07-21 Outpatient MHIE MHIE [id number] 365 [facility] 10:00:00 10:00:00 01 chavez Velasquez 2007-08-17 2007-08-17 [facility] [id number] [place] 10:08:00 10:08:00 SARAH [id number] [facility] 2007-06-15 2007-06-15 Outpatient [facility] [id number] [place] 11:39:00 11:39:00 SARAH [id number] [facility] Results This patient has no known results.
--- NOTE | 2023-06-22 07:57 | RAD REPORT ---
EXAM DESCRIPTION: CT - Abdomen Pelvis Wo Contrast - 06/22/2023 7:46 am CLINICAL HISTORY: Abdominal pain. fall, back and pelvic pain COMPARISON: Abdomen Pelvis W Contrast dated 09/19/2019 TECHNIQUE: CT imaging of the abdomen and pelvis was performed without contrast. Solid organ, bowel a nd vascular assessment is limited due to lack of IV and oral contrast. All CT scans are performed using dose optimization technique as appropriate and may include automated exposure control or mA/KV adjustment according to patient size. FINDINGS: The lung bases are emphysematous but clear.Moderate hiatal hernia. The liver, spleen, pancreas, adrenal glands and kidneys are within normal limits for a limited non-co ntrast examination. No bowel obstruction, free air, free fluid or abscess. Moderate stool present throughout the colon. S ignificant diverticulosis of the sigmoid colon is seen without diverticulitis. Nonvisualized appendix . 5 mm degenerative anterolisthesis L5 on S1. Moderate compression deformity of the L3 vertebral body c entrally noted, chronic. Fracture is seen of the anterior column of the right acetabulum. There is also fracture of the inferi or right pubic ramus. IMPRESSION: Right kenn pelvic fractures as detailed. Chronic L3 central compression deformity. No evidence of intraabdominal or intrapelvic traumatic abnormality. A limited non-contrast examination was performed as detailed.
--- NOTE | 2023-06-22 08:19 | RAD REPORT ---
EXAM DESCRIPTION: RAD - Femur Right - 06/22/2023 8:02 am CLINICAL HISTORY: PAIN COMPARISON: No comparisons FINDINGS: Fracture of the superior and inferior pubic ramus noted on the right. The right femur appe ars intact. No hip fracture. No dislocation.
[2023-06-22 08:33] LABS: Absolute Lymphocytes (CBC) 1.4 K/uL (0.7-4.9); Hematocrit 33.7 % (36.0-45.0); Lymphocytes % 16.6 % (15.3-44.8); MPV 9.8 fL (7.6-11.3); Platelets 221 thou/uL (152-406); RBC Red Blood Cell Count 3.79 M/uL (3.86-4.86)
[2023-06-22 08:37] LABS: Protime INR 1.07
[2023-06-22 08:40] LABS: SARS-CoV-2 Antigen Rapid Res Negative (Negative)
[2023-06-22 08:43] LABS: Potassium 3.7 mEq/L (3.5-5.1)
--- NOTE | 2023-06-22 08:55 | ER ---
Nurse's Notes [facility] Name: Deirdre Castillo Age: 87 yrs Sex: Female : 1935 Arrival Date: 06/22/2023 Time: 07:29 Bed 20 Private MD: Diagnosis: Right pubic rami fractures;Displaced fracture of anterior column [iliopubic] of right acetabulum, initial encounter for closed fracture Presentation: 06/22 07:29 Chief complaint: EMS states: PATIENT FELL YESTERDAY FROM STANDING POSITION STATES USES db A WALKER AND WAS GOING TO THE RESTROOM. PATIENT DENIES LOC AND DENIES HITTING HEAD. XRAY DONE AND PELVIC FRACTURE FOUND. Coronavirus screen: Vaccine status: Patient reports receiving the 2nd dose of the covid vaccine. Client denies travel out of the [place] in the last 14 days. Client presents with at least one sign or symptom that may indicate coronavirus-19. Standard/surgical mask placed on the client. Ebola Screen: Patient negative for fever greater than or equal to 101.5 degrees Fahrenheit, and additional compatible Ebola Virus Disease symptoms Patient denies exposure to infectious person. Patient denies travel to an Ebola-affected area in the 21 days before illness onset. No symptoms or risks identified at this time. Initial Sepsis Screen: Does the patient meet any 2 criteria? No. Patient's initial sepsis screen is negative. Does the patient have a suspected source of infection? No. Patient's initial sepsis screen is negative. Risk Assessment: Do you want to hurt yourself or someone else? Patient reports no desire to harm self or others. Onset of symptoms was June 21, 2023. 07:29 Method Of Arrival: EMS: [facility] db 07:29 Acuity: BRETT 3 db Triage Assessment: 07:44 General: Appears in no apparent distress. comfortable, Behavior is calm, cooperative. db Pain: Complains of pain in pelvis and right leg. Neuro: Level of Consciousness is awake, alert, obeys commands, Oriented to person, place, time, situation. Respiratory: Airway is patent Respiratory effort is even, unlabored, Respiratory pattern is regular, symmetrical. Musculoskeletal: Reports pain in right leg. Injury Description: Crush injury sustained to right leg. Historical: - Allergies: 07:44 lansaprazole; db 07:44 Macrolide Antibiotics; db 07:44 PENICILLINS; db - PMHx: 07:44 Atrial Fib; GERD; Depression; Hypertension; Diverticulitis; Vertigo; Migraines; db Hypothyroidism; Osteoporosis; - Immunization history:: Adult Immunizations unknown, Client reports receiving the 2nd dose of the Covid vaccine. - Social history:: Smoking status: Patient denies any tobacco usage or history of. - Family history:: not pertinent. - Hospitalizations: : No recent hospitalization is reported. Screenin:45 [facility] ED Fall Risk Assessment (Adult) History of falling in the last 3 months, db including since admission Yes- fall prone (multiple falls) (3 pts) Confusion or Disorientation No (0 pts) Intoxicated or Sedated No (0 pts) Impaired Gait Yes (1 pt) Mobility Assist Device Used Yes (1 pt) Altered Elimination No (0 pt) Score/Fall Risk Level 0 - 2 = Low Risk Oriented to surroundings, Maintained a safe environment. 07:46 Abuse screen: Denies threats or abuse. Denies injuries from another. Nutritional db screening: No deficits noted. Tuberculosis screening: No symptoms or risk factors identified. Assessment: 07:30 Reassessment: SEE TRIAGE FOR INITIAL ASSESSMENT. db 07:45 Reassessment: PATIENT TO CT. db 08:08 Reassessment: patient returned to room from radiology. db 09:00 Reassessment: Patient appears in no apparent distress at this time. Patient and/or db family updated on plan of care and expected duration. Pain level reassessed. Patient is alert, oriented x 3, equal unlabored respirations, skin warm/dry/pink. General: Appears in no apparent distress. comfortable, Behavior is calm, cooperative. Neuro: Level of Consciousness is awake, alert, obeys commands, Oriented to person, place, time, situation. 09:41 Reassessment: REPORT GIVEN TO [facility]. db 10:00 Reassessment: Patient appears in no apparent distress at this time. Patient and/or db family updated on plan of care and expected duration. Pain level reassessed. Patient is alert, oriented x 3, equal unlabored respirations, skin warm/dry/pink. Vital Signs: 07:29 BP 132 / 60; Pulse 70; Resp 18; Temp 98.1(O); Pulse Ox 100% on R/A; Weight 54.43 kg db (M); Height 5 ft. 3 in. ; Pain 6/10; 08:07 BP 144 / 62; Pulse 61; Resp 18; Pulse Ox 100% on R/A; db 09:00 BP 129 / 67; Pulse 63; Resp 16; Pulse Ox 95% on R/A; db 09:30 BP 119 / 64; Pulse 60; Resp 16; Temp 98.1; Pulse Ox 95% ; db 10:00 BP 117 / 45; Pulse 58; Resp 18; Pulse Ox 95% on R/A; db 07:29 Body Mass Index 21.26 (54.43 kg, 160.02 cm) db 07:29 Pain Scale: Adult db ED Course: 07:35 Patient arrived in ED. db 07:35 Jarvis Dorsey MD is Attending Physician. rn 07:44 Triage completed. db 07:45 Arm band placed on Patient placed in an exam room. db 07:46 Gerri Garcia, RN is Primary Nurse. db 07:48 CT Abd/Pelvis - Without Contrast In Process Unspecified. EDMS 08:04 XRAY Femur RIGHT In Process Unspecified. EDMS 08:15 Inserted saline lock: 20 gauge in left antecubital area, using aseptic technique. Blood db collected. 09:18 initiated transfer to [facility], pt accepted by Dr Ahmadi to [facility] admin approval bd given by Sonya Lockett. 10:19 Patient has correct armband on for positive identification. Bed in low position. Call db light in reach. Side rails up X 1. Provided Education on: TRANSFER. 10:19 No provider procedures requiring assistance completed. Patient transferred, IV remains db in place. Administered Medications: No medications were administered Medication: 09:42 VIS not applicable for this client. db Outcome: 08:54 ER care complete, transfer ordered by . rn 10:19 Transferred by ground EMS to [facility], Transfer form completed. db 10:19 Condition: stable 10:19 Instructed on the need for transfer. 10:19 Patient left the ED. db Signatures: Dispatcher [employer] EDMS Deirdre Frances Roman, MD MD rn Gerri Garcia, RN RN db
--- NOTE | 2023-06-22 08:55 | EDPHYS ---
Physician Documentation [facility] Name: Deirdre Castillo Age: 87 yrs Sex: Female : 1935 Arrival Date: 06/22/2023 Time: 07:29 Bed 20 Private MD: ED Physician Jarvis Dorsey HPI: 06/22 08:00 This 87 yrs old Female presents to ER via EMS with complaints of fall, pelvic pain. rn 08:00 Details of fall: The patient fell from an upright position, while walking. Onset: The rn symptoms/episode began/occurred last night. Associated injuries: The patient sustained back/pelvis/right leg. Severity of symptoms: At their worst the symptoms were mild, in the emergency department the symptoms are unchanged. The patient has not experienced similar symptoms in the past. Fell yesterday while walking to bathroom, fell onto right side, reports pain to back, right pelvis/hip, and right proximal leg. No head injury. No LOC. Xray obtained at [facility] show pubic ramus fracture. . Historical: - Allergies: 07:44 lansaprazole; db 07:44 Macrolide Antibiotics; db 07:44 PENICILLINS; db - PMHx: 07:44 Atrial Fib; GERD; Depression; Hypertension; Diverticulitis; Vertigo; Migraines; db Hypothyroidism; Osteoporosis; - Immunization history:: Adult Immunizations unknown, Client reports receiving the 2nd dose of the Covid vaccine. - Social history:: Smoking status: Patient denies any tobacco usage or history of. - Family history:: not pertinent. - Hospitalizations: : No recent hospitalization is reported. ROS: 08:00 Constitutional: Negative for fever, chills, and weight loss, Neck: Negative for injury, rn pain, and swelling, Cardiovascular: Negative for chest pain, palpitations, and edema, Respiratory: Negative for shortness of breath, cough, wheezing, and pleuritic chest pain, Abdomen/GI: Negative for abdominal pain, nausea, vomiting, diarrhea, and constipation, Back: + low back pain MS/Extremity: + right leg pain Skin: Negative for injury, rash, and discoloration, Neuro: Negative for headache, weakness, numbness, tingling, and seizure. Exam: 08:00 Constitutional: This is a well developed, well nourished patient who is awake, alert, rn and in no acute distress. Head/Face: Normocephalic, atraumatic. Neck: NO midline cervical tenderness Chest/axilla: Normal chest wall appearance and motion. Nontender with no deformity. No lesions are appreciated. Cardiovascular: Regular rate and rhythm. No pulse deficits. Respiratory: No increased work of breathing, no retractions or nasal flaring. Abdomen/GI: Soft, non-tender Back: No spinal tenderness. MS/ Extremity: Pulses equal, no cyanosis. Neurovascular intact. + mild pain with ROM right hip. Neuro: Awake and alert, GCS 15 Vital Signs: 07:29 BP 132 / 60; Pulse 70; Resp 18; Temp 98.1(O); Pulse Ox 100% on R/A; Weight 54.43 kg db (M); Height 5 ft. 3 in. ; Pain 6/10; 08:07 BP 144 / 62; Pulse 61; Resp 18; Pulse Ox 100% on R/A; db 09:00 BP 129 / 67; Pulse 63; Resp 16; Pulse Ox 95% on R/A; db 09:30 BP 119 / 64; Pulse 60; Resp 16; Temp 98.1; Pulse Ox 95% ; db 10:00 BP 117 / 45; Pulse 58; Resp 18; Pulse Ox 95% on R/A; db 07:29 Body Mass Index 21.26 (54.43 kg, 160.02 cm) db 07:29 Pain Scale: Adult db MDM: 07:35 Patient medically screened. rn 08:48 Differential diagnosis: contusion, fracture, sprain. Data reviewed: vital signs, nurses rn notes, radiologic studies, CT scan, plain films, and as a result, I will admit patient. Counseling: I had a detailed discussion with the patient and/or guardian regarding: the historical points, exam findings, and any diagnostic results supporting the discharge/admit diagnosis, radiology results, the need to transfer to another facility. 08:56 ED course: Spoke with daughter, ok with transfer to [place] for physician general internal medicine consultation.. 06/22 07:36 Order name: CBC with Diff; Complete Time: 08:48 rn 06/22 07:36 Order name: Basic Metabolic Panel; Complete Time: 08:48 rn 06/22 07:37 Order name: SARS RAPID; Complete Time: 08:48 rn 06/22 07:38 Order name: Protime (+inr); Complete Time: 08:48 rn 06/22 07:38 Order name: Ptt, Activated; Complete Time: 08:48 rn 06/22 07:36 Order name: CT Abd/Pelvis - Without Contrast; Complete Time: 08:26 rn 06/22 07:36 Order name: XRAY Femur RIGHT; Complete Time: 08:26 rn 06/22 07:36 Order name: IV Start; Complete Time: 08:24 rn Administered Medications: No medications were administered Disposition Summary: 06/22/23 08:54 Transfer Ordered Transfer Location: [facility] rn Reason: Higher level of care rn Condition: Stable rn Problem: new rn Symptoms: have improved rn Accepting Physician: (06/22/23 10:19) db Diagnosis - Right pubic rami fractures rn - Displaced fracture of anterior column [iliopubic] of right acetabulum, initial rn encounter for closed fracture Forms: - Medication Reconciliation Form rn - SBAR form rn Signatures: Dispatcher [employer] EDMS Jarvis Dorsey MD MD rn Benton, Danielle, RN RN db Corrections: (The following items were deleted from the chart) 10:19 08:54 rn db
[2023-06-22 10:29] VITALS: TEMP 98.1
[2023-06-22 10:44] VITALS: O2SAT 95
[2023-06-22 10:47] VITALS: BP 117/45
== END 2023-06-22 10:19 | disposition short-term general hospital (02) ==
LOC: ER 07:29
DX: S32.431A Displaced fracture of anterior column [iliopubic] of right acetabulum, initial encounter for closed fracture (principal); S32.591A Other specified fracture of right pubis, initial encounter for closed fracture; Z20.822 Contact with and (suspected) exposure to COVID-19; Z88.0 Allergy status to penicillin; Z88.1 Allergy status to other antibiotic agents; Z88.8 Allergy status to other drugs, medicaments and biological substances
CPT/HCPCS: 36415; 74176; 80048; 85025; 85610; 85730; 87811